=== PATIENT | female | born 1950 | race Caucasian/White ===

== ENCOUNTER 2016-05-17 07:23 | Inpatient (IN) | payer OTHER ==
[~2016-05-17] VITALS: Ht 165.1 cm; Wt 70.4 kg
--- NOTE | 2016-05-17 10:29 | DIAGNOSTIC IMAGING REPORT ---
PROCEDURE: ABDOMEN/PELVIS WITH CONTRAST CLINICAL INDICATION: ABDOMINAL PAIN, history of Crohn disease TECHNIQUE: 100 ml of Isovue 300 were injected intravenously and axial images were obtained of the abdomen and pelvis with sagittal and coronal reformations. COMPARISON: None. FINDINGS: ABDOMEN: Clear lung bases. Normal sized heart. Mild calcific coronary artery disease. No hiatal hernia. Post cholecystectomy changes. Moderate to heavy calcific atherosclerosis of the normal caliber abdominal aorta and splenic artery. Normal liver, adrenal glands, pancreas, spleen, and kidneys. There are two areas of small bowel anastomoses in the right and mid abdomen and one in the rectosigmoid. Proximal small bowel loops are decompressed. Mid and distal small bowel loops are mildly prominent with air fluid levels present. There is a fairly long segment of distal ileum which demonstrates diffuse stricturing, mucosal thickening, hyperemia, and mural edema. There is a small amount of inflammatory change in the surrounding fat. There is liquid stool in the proximal colon with air-fluid levels. There is a moderately increased amount of semisolid stool in the mid and distal colon and rectum. No free fluid, free air, or focal fluid collection to suggest abscess. PELVIS: The appendix and uterus are surgically absent. Irregular contour of the urinary bladder suggestive of chronic overdistention. No free pelvic fluid. Pelvic vessels are normal. No adenopathy. Intact osseous structures with degenerative changes in the L5-S1 facet joints. IMPRESSION: 1. Findings suggestive of acute inflammation involving the distal ileum resulting in stricturing. This is causing mild partial obstruction/ileus. 2. Evidence of prior small and large bowel anastomoses, cholecystectomy, appendectomy, and hysterectomy. 3. Mild to moderate retained semisolid stool in the distal colon and rectum. 4. Atherosclerosis. 5. Discussed with Dr. Gonzalez in the emergency room. All CT scans at this facility use dose modulation, iterative reconstruction, and/or weight-based dosing when appropriate to reduce radiation dose to as low as reasonably achievable.
--- NOTE | 2016-05-17 10:37 | ED CLINICAL REPORT ---
Clinical Report - Physicians/Mid Levels [facility] [address] [place] [address] 05/17/2016 7:25 Patient: JIGAR BANDA Time Seen: 07:48. Arrived- By private vehicle. Historian- patient. HISTORY OF PRESENT ILLNESS Chief Complaint: ABDOMINAL PAIN. It is described as "pain", sharp and cramping. No radiation. It is described as located in the right lower quadrant. At its maximum, severity described as 8 / 10. When seen in the E.D., severity described as 8 / 10. This started several days ago and is still present (worse since last night). It was abrupt in onset and has been constant and waxing/waning. No nausea or vomiting. She has had diarrhea (chronically - and she attributes this to her Crohn's disease). It has been similar to previous symptoms. Recent medical care: The patient was seen recently at another facility in a clinic. ( She was started on meds recently for heartburn and anxiety and her family states that this could the reason for her pain). REVIEW OF SYSTEMS No chills, fever, sweats, calf pain or chest pain. No black stools, bloody stools, nausea, vomiting or urinary problems. She has had a moderate cough productive of blood tinged sputum. All systems otherwise negative, except as recorded above. PAST HISTORY PCP - Dr Zeng (he retired at the end of February 2016). Problems: Heart Murmur. Heart burn. Anxiety Reaction. Near Syncope. Anemia. Cellulitis. MRSA Infection. Crohn's Disease. Contusion. Healing Abscess. Abscess. Diabetes Mellitus. Hypertension. Additional Surgeries: Appendectomy. Cholecystectomy. Dental Surgery. Hysterectomy. Tubal . Medications: Zoloft Oral. Heart burn medication. Amitriptyline HCl Oral 50 mg, at bedtime. HumuLIN R Injection (sliding scale). Lantus Subcutaneous (Solution 100 unit/mL) 60 Units, every AM. Allergies: Codeine. SOCIAL HISTORY Smoker- current status unknown. Occasional alcohol use. No drug use. Residence: [place]. FAMILY HISTORY Diabetes in first-degree relative (father); heart disease in first-degree relative (father); cancer in first-degree relative (mother). her son also has Crohn's disease. ADDITIONAL NOTES The nursing notes have been reviewed. PHYSICAL EXAM Vital Signs: 05/17/2016 07:39 BP: 160/83. HR: 100. RR: 18. O2 saturation: 98%. Temp: 97.7 F. Pain level now: 7/10. Have been reviewed. Appearance: Alert. Oriented X3. Eyes: Pupils equal, round and reactive to light. ENT: Pharynx normal. Neck: Normal inspection. Neck supple. CVS: Normal heart rate and rhythm. 1/6 systolic murmur. Respiratory: No respiratory distress. Decreased air movement. No rales, rhonchi or wheezes. Abdomen: Soft. Moderate tenderness in the right lower quadrant. Bowel sounds normal. No organomegaly. No mass. Back: Normal inspection. No CVA tenderness. Skin: Skin warm and dry. Normal skin color. Normal skin turgor. Extremities: Extremities exhibit normal ROM. No calf tenderness. No lower extremity edema. LABS, X-RAYS, AND EKG Abdominal CT: PROCEDURE: ABDOMEN/PELVIS WITH CONTRAST CLINICAL INDICATION: ABDOMINAL PAIN, history of Crohn disease TECHNIQUE: 100 ml of Isovue 300 were injected intravenously and axial images were obtained of the abdomen and pelvis with sagittal and coronal reformations. COMPARISON: None. FINDINGS: ABDOMEN: Clear lung bases. Normal sized heart. Mild calcific coronary artery disease. No hiatal hernia. Post cholecystectomy changes. Moderate to heavy calcific atherosclerosis of the normal caliber abdominal aorta and splenic artery. Normal liver, adrenal glands, pancreas, spleen, and kidneys. There are two areas of small bowel anastomoses in the right and mid abdomen and one in the rectosigmoid. Proximal small bowel loops are decompressed. Mid and distal small bowel loops are mildly prominent with air fluid levels present. There is a fairly long segment of distal ileum which demonstrates diffuse stricturing, mucosal thickening, hyperemia, and mural edema. There is a small amount of inflammatory change in the surrounding fat. There is liquid stool in the proximal colon with air-fluid levels. There is a moderately increased amount of semisolid stool in the mid and distal colon and rectum. No free fluid, free air, or focal fluid collection to suggest abscess. PELVIS: The appendix and uterus are surgically absent. Irregular contour of the urinary bladder suggestive of chronic overdistention. No free pelvic fluid. Pelvic vessels are normal. No adenopathy. Intact osseous structures with degenerative changes in the L5-S1 facet joints. IMPRESSION: 1. Findings suggestive of acute inflammation involving the distal ileum resulting in stricturing. This is causing mild partial obstruction/ileus. 2. Evidence of prior small and large bowel anastomoses, cholecystectomy, appendectomy, and hysterectomy. 3. Mild to moderate retained semisolid stool in the distal colon and rectum. 4. Atherosclerosis. Study type: abdomen and pelvis. Abdominal CT performed with IV contrast. The study was independently viewed by me and interpreted by the radiologist. The study was discussed with the radiologist (via phone). Laboratory Tests: CBC wo Diff: (QUINTON: 05/20/2016 05:18) ( [facility] 05:57) Final results Test Result Flag Units (Reference) WHITE BLOOD COUNT NO REFLEX 9.3 K/uL (4.5-11.5) RED BLOOD COUNT 3.66 L M/uL (4.00-5.20) HEMOGLOBIN 10.2 L gm/dL (12.0-16.0) HEMATOCRIT 30.6 L % (36.0-46.0) MEAN CELL VOLUME 84 fL (80-100) MEAN CORPUSCULAR HGB 28 pg (26-34) MEAN CORPUSCULAR HGB CONC 34 g/dL (31-37) RED CELL DISTRIBUTION WIDTH 14.0 % (11.6-14.8) PLATELET COUNT 332 K/uL (150-400) BMP: (QUINTON: 05/20/2016 05:18) ( [facility] 05/20/2016 06:43) Final results Test Result Flag Units (Reference) GLUCOSE 226 H mg/dL (70-110) BUN 15 mg/dL (7-18) CREATININE 0.8 mg/dL (0.6-1.3) Estimated GFR >60 mL/min Estimated GFR- >60 mL/min Note: Persistent reduction over 3 months in eGFR<60 mL/min/1.73 m2 defines CKD. Patients with eGFR values>=60 mL/min/1.73 m2 may also have CKD if evidence ofpersistent proteinuria. Additional information may be foundat www.[email or web address].org. SODIUM 138 mmol/L (136-145) POTASSIUM 4.6 mmol/L (3.5-5.1) CHLORIDE 103 mmol/L (98-107) CARBON DIOXIDE 21 mmol/L (21-32) CALCIUM 8.6 mg/dL (8.5-10.1) MAGNESIUM 1.5 L mg/dL (1.8-2.4) PHOSPHORUS 3.8 mg/dL (2.5-4.9) CBC w Diff: (QUINTON: 05/19/2016 04:40) ( MsgRcvd 05/19/2016 05:30) Final results Test Result Flag Units (Reference) WHITE BLOOD COUNT 11.5 K/uL (4.5-11.5) RED BLOOD COUNT 3.33 L M/uL (4.00-5.20) HEMOGLOBIN 9.4 L gm/dL (12.0-16.0) HEMATOCRIT 28.1 L % (36.0-46.0) MEAN CELL VOLUME 85 fL (80-100) MEAN CORPUSCULAR HGB 28 pg (26-34) MEAN CORPUSCULAR HGB CONC 34 g/dL (31-37) RED CELL DISTRIBUTION WIDTH 14.3 % (11.6-14.8) PLATELET COUNT 279 K/uL (150-400) NEUTROPHIL % 83.1 H % (50-75) LYMPH % 14.0 L % (25-40) MONO % 2.6 L % (3-14) EOSINOPHIL % 0 % (0-4) BASOPHIL % 0.3 % (0-2) BMP: (QUNITON: 05/19/2016 04:40) ( MsgRcvd 05/19/2016 05:37) Final results Test Result Flag Units (Reference) GLUCOSE 188 H mg/dL (70-110) BUN 16 mg/dL (7-18) CREATININE 0.8 mg/dL (0.6-1.3) Estimated GFR >60 mL/min Estimated GFR- >60 mL/min Note: Persistent reduction over 3 months in eGFR<60 mL/min/1.73 m2 defines CKD. Patients with eGFR values>=60 mL/min/1.73 m2 may also have CKD if evidence ofpersistent proteinuria. Additional information may be foundat [email or web address]. SODIUM 139 mmol/L (136-145) POTASSIUM 4.4 mmol/L (3.5-5.1) CHLORIDE 105 mmol/L (98-107) CARBON DIOXIDE 22 mmol/L (21-32) CALCIUM 8.4 L mg/dL (8.5-10.1) CBC w Diff: (QUINTON: 05/18/2016 05:30) ( [facility] 05/18/2016 05:41) Final results Test Result Flag Units (Reference) WHITE BLOOD COUNT 13.2 H K/uL (4.5-11.5) RED BLOOD COUNT 3.17 L M/uL (4.00-5.20) HEMOGLOBIN 9.0 L gm/dL (12.0-16.0) HEMATOCRIT 26.4 L % (36.0-46.0) MEAN CELL VOLUME 83 fL (80-100) MEAN CORPUSCULAR HGB 29 pg (26-34) MEAN CORPUSCULAR HGB CONC 34 g/dL (31-37) RED CELL DISTRIBUTION WIDTH 14.0 % (11.6-14.8) PLATELET COUNT 243 K/uL (150-400) NEUTROPHIL % 86.1 H % (50-75) LYMPH % 10.4 L % (25-40) MONO % 3.4 % (3-14) EOSINOPHIL % 0 % (0-4) BASOPHIL % 0.1 % (0-2) [id number]: (QUINTON: 05/18/2016 05:30) ( [facility] 05/18/2016 06:07) Final results Test Result Flag Units (Reference) IRON 67 ug/dL (35-150) TOTAL IRON BINDING CAPACITY 247 L ug/dL (260-445) % SATURATION 27 % (15-50) [id number]: (QUINTON: 05/18/2016 05:30) ( [facility] 05/18/2016 06:41) Final results Test Result Flag Units (Reference) VITAMIN B12 140 pg/mL (211-946) FOLATE 33.9 ng/mL (>3.0) BMP: (QUINTON: 05/18/2016 05:30) ( MsgRcvd 05/18/2016 05:59) Final results Test Result Flag Units (Reference) GLUCOSE 226 H mg/dL (70-110) BUN 16 mg/dL (7-18) CREATININE 0.8 mg/dL (0.6-1.3) Estimated GFR >60 mL/min Estimated GFR- >60 mL/min Note: Persistent reduction over 3 months in eGFR<60 mL/min/1.73 m2 defines CKD. Patients with eGFR values>=60 mL/min/1.73 m2 may also have CKD if evidence ofpersistent proteinuria. Additional information may be foundat www.[email or web address]. SODIUM 138 mmol/L (136-145) POTASSIUM 3.8 mmol/L (3.5-5.1) CHLORIDE 104 mmol/L (98-107) CARBON DIOXIDE 23 mmol/L (21-32) CALCIUM 8.1 L mg/dL (8.5-10.1) UA-Culture if indicated: (QUINTON: 05/17/2016 07:40) ( MsgRcvd 05/17/2016 08:12) Final results Test Result Flag Units (Reference) URINE COLOR YELLOW URINE APPEARANCE CLEAR URINE GLUCOSE TRACE (NEGATIVE) URINE BILIRUBIN NEGATIVE (NEGATIVE) URINE KETONE NEGATIVE (NEGATIVE) URINE SPECIFIC GRAVITY 1.010 (1.010-1.030) URINE PH 6.0 (5.0-8.0) URINE PROTEIN NEGATIVE (NEGATIVE) URINE UROBILINOGEN 0.2 EU/dL (0.2-1.0) URINE NITRITE NEGATIVE (NEGATIVE) URINE BLOOD TRACE-INTACT (NEGATIVE) URINE LEUK ESTERASE NEGATIVE (NEGATIVE) URINE RBC 0-1 rbc/hpf (0-1) URINE WBC 0-1 wbc/hpf (0-1) URINE EPITHELIAL CELLS RARE EPI/hpf (0-5) URINE BACTERIA TRACE (<1+) (NONE SEEN) URINE COMMENT CULT NOT INDICATED URINE CULTURES ARE SET-UP BASED ON THE FOLLOWING CRITERIA:POSITIVE NITRITEPOSITIVE LEUKOCYTE ESTERASEGREATER THAN 10 WHITE BLOOD CELLSMODERATE (2+) OR GREATER BACTERIA CBC w Diff: (QUINTON: 05/17/2016 08:10) ( [facility] 05/17/2016 08:23) Final results Test Result Flag Units (Reference) WHITE BLOOD COUNT 9.8 K/uL (4.5-11.5) RED BLOOD COUNT 3.52 L M/uL (4.00-5.20) HEMOGLOBIN 10.0 L gm/dL (12.0-16.0) HEMATOCRIT 29.1 L % (36.0-46.0) MEAN CELL VOLUME 83 fL (80-100) MEAN CORPUSCULAR HGB 28 pg (26-34) MEAN CORPUSCULAR HGB CONC 34 g/dL (31-37) RED CELL DISTRIBUTION WIDTH 13.8 % (11.6-14.8) PLATELET COUNT 259 K/uL (150-400) NEUTROPHIL % 70.2 % (50-75) LYMPH % 21.5 L % (25-40) MONO % 6.8 % (3-14) EOSINOPHIL % 1.2 % (0-4) BASOPHIL % 0.3 % (0-2) PT with INR: (QUINTON: 05/17/2016 08:10) ( [facility] 05/17/2016 08:33) Final results Test Result Flag Units (Reference) INR 1.0 (0.8-1.2) Low Intensity Therapy: INR 1.5-2.0 PT range 18.5-23.1Mod.Intensity Therapy: INR 2.0-3.0 PT range 23.1-31.5High Intensity Therapy: INR 2.5-3.5 PT range 27.4-35.5High Intensity Therapy 2: INR 3.0-4.0 PT range 31.5-39.3 APTT 30 SECONDS (24-34) [id number]: (QUINTON: 05/17/2016 08:00) ( [facility] 05/17/2016 13:35) Final results Test Result Flag Units (Reference) CALCULATED A1C 8.9 H % (4.5-6.2) The [place] [employer] recommends that aprimary goal of therapy should be a HbA1c of <7% and thatphysicians should reevaluate the treatment regimen inpatients with HbA1c values consistently >8%. ESTIMATED AVERAGE GLUCOSE 209 mg/dL CMP: (QUINTON: 05/17/2016 08:10) ( MsgRcvd 05/17/2016 08:42) Final results Test Result Flag Units (Reference) GLUCOSE 304 H mg/dL (70-110) BUN 20 H mg/dL (7-18) CREATININE 1.0 mg/dL (0.6-1.3) Estimated GFR 59.52 mL/min Estimated GFR- >60 mL/min Note: Persistent reduction over 3 months in eGFR<60 mL/min/1.73 m2 defines CKD. Patients with eGFR values>=60 mL/min/1.73 m2 may also have CKD if evidence ofpersistent proteinuria. Additional information may be foundat www.kidney.org. SODIUM 136 mmol/L (136-145) POTASSIUM 4.0 mmol/L (3.5-5.1) CHLORIDE 100 mmol/L (98-107) CARBON DIOXIDE 25 mmol/L (21-32) CALCIUM 8.7 mg/dL (8.5-10.1) TOTAL PROTEIN 7.1 g/dL (6.4-8.2) ALBUMIN 3.2 L g/dL (3.3-5.0) BILIRUBIN, TOTAL 0.4 mg/dL (0.0-1.0) ALKALINE PHOSPHATASE 75 U/L (46-116) AST (SGOT) 28 U/L (15-37) ALT (SGPT) 41 U/L (12-78) LIPASE 270 U/L (73-393) AMYLASE 55 U/L (25-115) MRSA Screen: (QUINTON: 05/17/2016 11:55) ( MsgRcvd 05/20/2016 12:11) Final results Is patient on antibiotics? N Test Result Flag Units (Reference) MRSA SCREEN DATE: 05/20/16 GROWTH: SCANT GROWTH MRSA ISOLATED?: NO MRSA ISOLATED MSSA ISOLATED?: MSSA (Methacilin Sensitive Staph aureus ISOLATED) * MRSA SCREEN ONLY . PROGRESS AND PROCEDURES Course of Care: the patient is a pleasant 65-year-old female with past medical history significant for Crohn's disease presenting for reevaluation of abdominal pain. Patient was evaluated by the prior DrJanessa at the end of his shift. Patient care has been taken over by myself at the change of shift. Plan is follow up with the Patient's labs and CT scan of the abdomen and pelvis with contrast. patient's workup was remarkable for the findings noted on CT scan above. Patient was reevaluated and unfortunately not doing well. Additional pain medications have been offered. The patient with Crohn's flare. Because of this, had discussion with patient in regards to admission to the hospital. Patient is agreeable to this. I spoke with the hospitalist who will accept the patient. No further recommendations made. Patient is stable for floor level of care. Do not feel patient needs ICU level of care. No evidence of sepsis at this time. Patient appears nontoxic. Discussed the patient workup, diagnosis, and plan of care. All questions have been answered. patient was admitted. Prior to patient's department or from the emergency department she was noted to be resting in bed and in no acute distress. Disposition: Observation in Acute Care. CLINICAL IMPRESSION Minor hemoptysis acute crohn's flare acute partial ileus acute intractable right lower quadrant abdominal pain hemoptysis. INSTRUCTIONS Warnings: Further evaluation is necessary. GENERAL WARNINGS: Return or contact your physician immediately if your condition worsens or changes unexpectedly, if not improving as expected, or if other problems arise. Your Current Medications: CONTINUE TAKING THE FOLLOWING MEDICATIONS: Amitriptyline HCl Oral : 50 mg at bedtime. Heart burn medication*. HumuLIN R Injection : sliding scale. Lantus Subcutaneous : Solution 100 unit/mL, 60 Units every AM. Zoloft Oral. Follow-up: Follow up with a patternmaker metal- as recommended by your primary care physician. Understanding of the discharge instructions verbalized by patient. Follow-up with: [facility], , , [address], [facility], [id number] Follow up in five days. Call for the next available appointment. (Electronically signed by Mayo Gonzalez Dr. 05/23/2016 8:11)
--- NOTE | 2016-05-17 10:37 | ED ORDER SUMMARY ---
..... Patient: JIGAR BANDA OrderSheet [facility] VisitID: [id number] [address] [place] [address] 65y, F Registration Date/Time: 05/17/2016 ORDER SHEET Weight: 66.6 kg (stated) Allergies: Codeine GENERAL ORDERS: UA-Culture if indicated Urgent (07:47 05/17/2016 JBoardley R.N. per protocol) (Ack 7:49 KHoerner) (7:49 KHoerner) CBC w Diff Urgent (07:48 05/17/2016 Judy MELARA) (Ack 7:49 KHoerner) (8:18 JBoardley R.N.) CMP Urgent (07:48 05/17/2016 Judy MELARA) (Ack 7:49 KHoerner) (8:18 JBoardley R.N.) Amylase Urgent (07:48 05/17/2016 Judy MELARA) (Ack 7:49 KHoerner) (8:18 JBoardley R.N.) Lipase Urgent (07:48 05/17/2016 Judy MELARA) (Ack 7:49 KHoerner) (8:18 JBoardley R.N.) PT with INR Urgent (08:11 05/17/2016 Judy MELARA) (8:18 JBoardley R.N.) PTT Urgent (08:11 05/17/2016 Judy MELARA) (8:18 JBoardley R.N.) Chest 2V Urgent (08:11 05/17/2016 Judy MELARA) (Ack 8:23 KHoerner) (8:55 JBoardley R.N.) CT Abd/Pel w Cont (Yes) (GFr okay) Urgent (09:00 05/17/2016 Meera Clayton) (Ack 9:02 KHoerner) (9:41 KHoerner) CT Abd/Pel w Cont (Yes) (See report) Urgent (09:01 05/17/2016 Judy MELARA) (Ack 9:02 KHoerner) (9:41 KHoerner) MEDICATION ORDERS: IV FLUIDS: IV NS : initial bolus 500 mL (1000 mL/hr), then 125 mL/hr for 4h (NOW); Urgent (07:48 05/17/2016 Judy MELARA) (Ack 7:52 JBoardley R.N.) (8:29 JBoardley R.N.) Dilaudid IV 0.5 mg (HIGH ALERT MEDICATION, NOW) (08:17 05/17/2016 Judy MELARA) (Ack 8:18 JBoardley R.N.) (8:29 JBoardley R.N.) Zofran IV 4 mg (NOW) (08:18 05/17/2016 Judy MELARA) (Ack 8:18 JBoardley R.N.) (8:29 JBoardley R.N.) Dilaudid IV 0.5 mg (HIGH ALERT MEDICATION, NOW) (09:03 05/17/2016 JBoardley R.N. verbal order read back to Judy MELARA) (Ack 9:04 JBoardley R.N.) (9:04 JBoardley R.N.) Solu-MEDROL IV 125 mg (NOW) (10:31 05/17/2016 Meera Clayton) (Ack 10:34 JBoardley R.N.) (11:02 RMarsden R.N.) Dilaudid IV 1 mg (HIGH ALERT MEDICATION, NOW) (10:32 05/17/2016 Meera Clayton) (Ack 10:34 JBoardley R.N.) (11:12 RMarsden R.N.) ORDER SHEET NOTES: [Electronically signed by Marcio Jonas R.N. (11:54 05/17/2016)] [Electronically signed by Mayo Gonzalez Dr. (08:11 05/23/2016)] [Electronically locked/signed by Marcio Jonas R.N. (11:54 05/17/2016)]
--- NOTE | 2016-05-17 10:37 | ED ORDER SUMMARY ---
..... Patient: JIGAR BANDA OrderSheet [facility] VisitID: [id number] [address] [place] [address] 65y, F Registration Date/Time: 05/17/2016 ORDER SHEET Weight: 66.6 kg (stated) Allergies: Codeine GENERAL ORDERS: UA-Culture if indicated Urgent (07:47 05/17/2016 JBoardley R.N. per protocol) (Ack 7:49 KHoerner) (7:49 KHoerner) CBC w Diff Urgent (07:48 05/17/2016 Judy MELARA) (Ack 7:49 KHoerner) (8:18 JBoardley R.N.) CMP Urgent (07:48 05/17/2016 Judy MELARA) (Ack 7:49 KHoerner) (8:18 JBoardley R.N.) Amylase Urgent (07:48 05/17/2016 Judy MELARA) (Ack 7:49 KHoerner) (8:18 JBoardley R.N.) Lipase Urgent (07:48 05/17/2016 Judy MELARA) (Ack 7:49 KHoerner) (8:18 JBoardley R.N.) PT with INR Urgent (08:11 05/17/2016 Judy MELARA) (8:18 JBoardley R.N.) PTT Urgent (08:11 05/17/2016 Judy MELARA) (8:18 JBoardley R.N.) Chest 2V Urgent (08:11 05/17/2016 Judy MELARA) (Ack 8:23 KHoerner) (8:55 JBoardley R.N.) CT Abd/Pel w Cont (Yes) (GFr okay) Urgent (09:00 05/17/2016 Meera Clayton) (Ack 9:02 KHoerner) (9:41 KHoerner) CT Abd/Pel w Cont (Yes) (See report) Urgent (09:01 05/17/2016 Judy MELARA) (Ack 9:02 KHoerner) (9:41 KHoerner) MEDICATION ORDERS: IV FLUIDS: IV NS : initial bolus 500 mL (1000 mL/hr), then 125 mL/hr for 4h (NOW); Urgent (07:48 05/17/2016 Judy MELARA) (Ack 7:52 JBoardley R.N.) (8:29 JBoardley R.N.) Dilaudid IV 0.5 mg (HIGH ALERT MEDICATION, NOW) (08:17 05/17/2016 Judy MELARA) (Ack 8:18 JBoardley R.N.) (8:29 JBoardley R.N.) Zofran IV 4 mg (NOW) (08:18 05/17/2016 Judy MELARA) (Ack 8:18 JBoardley R.N.) (8:29 JBoardley R.N.) Dilaudid IV 0.5 mg (HIGH ALERT MEDICATION, NOW) (09:03 05/17/2016 JBoardley R.N. verbal order read back to Judy MELARA) (Ack 9:04 JBoardley R.N.) (9:04 JBoardley R.N.) Solu-MEDROL IV 125 mg (NOW) (10:31 05/17/2016 Meera Clayton) (Ack 10:34 JBoardley R.N.) (11:02 RMarsden R.N.) Dilaudid IV 1 mg (HIGH ALERT MEDICATION, NOW) (10:32 05/17/2016 Meera Clayton) (Ack 10:34 JBoardley R.N.) (11:12 RMarsden R.N.) ORDER SHEET NOTES: [Electronically signed by Marcio Jonas R.N. (11:54 05/17/2016)] [Electronically signed by Mayo Gonzalez Dr. (08:11 05/23/2016)] [Electronically locked/signed by Marcio Jonas R.N. (11:54 05/17/2016)]
--- NOTE | 2016-05-17 10:37 | ED CLINICAL REPORT ---
Clinical Report - Physicians/Mid Levels [facility] [address] [place], [place] [address] 05/17/2016 7:25 Patient: JIGAR BANDA Time Seen: 07:48. Arrived- By private vehicle. Historian- patient. HISTORY OF PRESENT ILLNESS Chief Complaint: ABDOMINAL PAIN. It is described as "pain", sharp and cramping. No radiation. It is described as located in the right lower quadrant. At its maximum, severity described as 8 / 10. When seen in the E.D., severity described as 8 / 10. This started several days ago and is still present (worse since last night). It was abrupt in onset and has been constant and waxing/waning. No nausea or vomiting. She has had diarrhea (chronically - and she attributes this to her Crohn's disease). It has been similar to previous symptoms. Recent medical care: The patient was seen recently at another facility in a clinic. ( She was started on meds recently for heartburn and anxiety and her family states that this could the reason for her pain). REVIEW OF SYSTEMS No chills, fever, sweats, calf pain or chest pain. No black stools, bloody stools, nausea, vomiting or urinary problems. She has had a moderate cough productive of blood tinged sputum. All systems otherwise negative, except as recorded above. PAST HISTORY PCP - Dr Zeng (he retired at the end of February 2016). Problems: Heart Murmur. Heart burn. Anxiety Reaction. Near Syncope. Anemia. Cellulitis. MRSA Infection. Crohn's Disease. Contusion. Healing Abscess. Abscess. Diabetes Mellitus. Hypertension. Additional Surgeries: Appendectomy. Cholecystectomy. Dental Surgery. Hysterectomy. Tubal . Medications: Zoloft Oral. Heart burn medication. Amitriptyline HCl Oral 50 mg, at bedtime. HumuLIN R Injection (sliding scale). Lantus Subcutaneous (Solution 100 unit/mL) 60 Units, every AM. Allergies: Codeine. SOCIAL HISTORY Smoker- current status unknown. Occasional alcohol use. No drug use. Residence: [place]. FAMILY HISTORY Diabetes in first-degree relative (father); heart disease in first-degree relative (father); cancer in first-degree relative (mother). her son also has Crohn's disease. ADDITIONAL NOTES The nursing notes have been reviewed. PHYSICAL EXAM Vital Signs: 05/17/2016 07:39 BP: 160/83. HR: 100. RR: 18. O2 saturation: 98%. Temp: 97.7 F. Pain level now: 7/10. Have been reviewed. Appearance: Alert. Oriented X3. Eyes: Pupils equal, round and reactive to light. ENT: Pharynx normal. Neck: Normal inspection. Neck supple. CVS: Normal heart rate and rhythm. 1/6 systolic murmur. Respiratory: No respiratory distress. Decreased air movement. No rales, rhonchi or wheezes. Abdomen: Soft. Moderate tenderness in the right lower quadrant. Bowel sounds normal. No organomegaly. No mass. Back: Normal inspection. No CVA tenderness. Skin: Skin warm and dry. Normal skin color. Normal skin turgor. Extremities: Extremities exhibit normal ROM. No calf tenderness. No lower extremity edema. LABS, X-RAYS, AND EKG Abdominal CT: PROCEDURE: ABDOMEN/PELVIS WITH CONTRAST CLINICAL INDICATION: ABDOMINAL PAIN, history of Crohn disease TECHNIQUE: 100 ml of Isovue 300 were injected intravenously and axial images were obtained of the abdomen and pelvis with sagittal and coronal reformations. COMPARISON: None. FINDINGS: ABDOMEN: Clear lung bases. Normal sized heart. Mild calcific coronary artery disease. No hiatal hernia. Post cholecystectomy changes. Moderate to heavy calcific atherosclerosis of the normal caliber abdominal aorta and splenic artery. Normal liver, adrenal glands, pancreas, spleen, and kidneys. There are two areas of small bowel anastomoses in the right and mid abdomen and one in the rectosigmoid. Proximal small bowel loops are decompressed. Mid and distal small bowel loops are mildly prominent with air fluid levels present. There is a fairly long segment of distal ileum which demonstrates diffuse stricturing, mucosal thickening, hyperemia, and mural edema. There is a small amount of inflammatory change in the surrounding fat. There is liquid stool in the proximal colon with air-fluid levels. There is a moderately increased amount of semisolid stool in the mid and distal colon and rectum. No free fluid, free air, or focal fluid collection to suggest abscess. PELVIS: The appendix and uterus are surgically absent. Irregular contour of the urinary bladder suggestive of chronic overdistention. No free pelvic fluid. Pelvic vessels are normal. No adenopathy. Intact osseous structures with degenerative changes in the L5-S1 facet joints. IMPRESSION: 1. Findings suggestive of acute inflammation involving the distal ileum resulting in stricturing. This is causing mild partial obstruction/ileus. 2. Evidence of prior small and large bowel anastomoses, cholecystectomy, appendectomy, and hysterectomy. 3. Mild to moderate retained semisolid stool in the distal colon and rectum. 4. Atherosclerosis. Study type: abdomen and pelvis. Abdominal CT performed with IV contrast. The study was independently viewed by me and interpreted by the radiologist. The study was discussed with the radiologist (via phone). Laboratory Tests: CBC wo Diff: (QUINTON: 05/20/2016 05:18) ( [facility] 05/20/2016 05:57) Final results Test Result Flag Units (Reference) WHITE BLOOD COUNT NO REFLEX 9.3 K/uL (4.5-11.5) RED BLOOD COUNT 3.66 L M/uL (4.00-5.20) HEMOGLOBIN 10.2 L gm/dL (12.0-16.0) HEMATOCRIT 30.6 L % (36.0-46.0) MEAN CELL VOLUME 84 fL (80-100) MEAN CORPUSCULAR HGB 28 pg (26-34) MEAN CORPUSCULAR HGB CONC 34 g/dL (31-37) RED CELL DISTRIBUTION WIDTH 14.0 % (11.6-14.8) PLATELET COUNT 332 K/uL (150-400) BMP: ([place]: 05/20/2016 05:18) ( [facility] 05/20/2016 06:43) Final results Test Result Flag Units (Reference) GLUCOSE 226 H mg/dL (70-110) BUN 15 mg/dL (7-18) CREATININE 0.8 mg/dL (0.6-1.3) Estimated GFR >60 mL/min Estimated GFR- >60 mL/min Note: Persistent reduction over 3 months in eGFR<60 mL/min/1.73 m2 defines CKD. Patients with eGFR values>=60 mL/min/1.73 m2 may also have CKD if evidence ofpersistent proteinuria. Additional information may be foundat [email or web address]. SODIUM 138 mmol/L (136-145) POTASSIUM 4.6 mmol/L (3.5-5.1) CHLORIDE 103 mmol/L (98-107) CARBON DIOXIDE 21 mmol/L (21-32) CALCIUM 8.6 mg/dL (8.5-10.1) MAGNESIUM 1.5 L mg/dL (1.8-2.4) PHOSPHORUS 3.8 mg/dL (2.5-4.9) CBC w Diff: (QUINTON: 05/19/2016 04:40) ( [facility] 05/19/2016 05:30) Final results Test Result Flag Units (Reference) WHITE BLOOD COUNT 11.5 K/uL (4.5-11.5) RED BLOOD COUNT 3.33 L M/uL (4.00-5.20) HEMOGLOBIN 9.4 L gm/dL (12.0-16.0) HEMATOCRIT 28.1 L % (36.0-46.0) MEAN CELL VOLUME 85 fL (80-100) MEAN CORPUSCULAR HGB 28 pg (26-34) MEAN CORPUSCULAR HGB CONC 34 g/dL (31-37) RED CELL DISTRIBUTION WIDTH 14.3 % (11.6-14.8) PLATELET COUNT 279 K/uL (150-400) NEUTROPHIL % 83.1 H % (50-75) LYMPH % 14.0 L % (25-40) MONO % 2.6 L % (3-14) EOSINOPHIL % 0 % (0-4) BASOPHIL % 0.3 % (0-2) BMP: (QUINTON: 05/19/2016 04:40) ( [facility] 05/19/2016 05:37) Final results Test Result Flag Units (Reference) GLUCOSE 188 H mg/dL (70-110) BUN 16 mg/dL (7-18) CREATININE 0.8 mg/dL (0.6-1.3) Estimated GFR >60 mL/min Estimated GFR- >60 mL/min Note: Persistent reduction over 3 months in eGFR<60 mL/min/1.73 m2 defines CKD. Patients with eGFR values>=60 mL/min/1.73 m2 may also have CKD if evidence ofpersistent proteinuria. Additional information may be foundat [email or web address]. SODIUM 139 mmol/L (136-145) POTASSIUM 4.4 mmol/L (3.5-5.1) CHLORIDE 105 mmol/L (98-107) CARBON DIOXIDE 22 mmol/L (21-32) CALCIUM 8.4 L mg/dL (8.5-10.1) CBC w Diff: (QUINTON: 05/18/2016 05:30) ( [facility] 05/18/2016 05:41) Final results Test Result Flag Units (Reference) WHITE BLOOD COUNT 13.2 H K/uL (4.5-11.5) RED BLOOD COUNT 3.17 L M/uL (4.00-5.20) HEMOGLOBIN 9.0 L gm/dL (12.0-16.0) HEMATOCRIT 26.4 L % (36.0-46.0) MEAN CELL VOLUME 83 fL (80-100) MEAN CORPUSCULAR HGB 29 pg (26-34) MEAN CORPUSCULAR HGB CONC 34 g/dL (31-37) RED CELL DISTRIBUTION WIDTH 14.0 % (11.6-14.8) PLATELET COUNT 243 K/uL (150-400) NEUTROPHIL % 86.1 H % (50-75) LYMPH % 10.4 L % (25-40) MONO % 3.4 % (3-14) EOSINOPHIL % 0 % (0-4) BASOPHIL % 0.1 % (0-2) [id number]: ([place]: 05/18/2016 05:30) ( [facility] 05/18/2016 06:07) Final results Test Result Flag Units (Reference) IRON 67 ug/dL (35-150) TOTAL IRON BINDING CAPACITY 247 L ug/dL (260-445) % SATURATION 27 % (15-50) [id number]: ([place]: 05/18/2016 05:30) ( [facility] 05/18/2016 06:41) Final results Test Result Flag Units (Reference) VITAMIN B12 140 pg/mL (211-946) FOLATE 33.9 ng/mL (>3.0) BMP: (QU[place]: 05/18/2016 05:30) ( [facility] 05/18/2016 05:59) Final results Test Result Flag Units (Reference) GLUCOSE 226 H mg/dL (70-110) BUN 16 mg/dL (7-18) CREATININE 0.8 mg/dL (0.6-1.3) Estimated GFR >60 mL/min Estimated GFR- >60 mL/min Note: Persistent reduction over 3 months in eGFR<60 mL/min/1.73 m2 defines CKD. Patients with eGFR values>=60 mL/min/1.73 m2 may also have CKD if evidence ofpersistent proteinuria. Additional information may be foundat [email or web address]. SODIUM 138 mmol/L (136-145) POTASSIUM 3.8 mmol/L (3.5-5.1) CHLORIDE 104 mmol/L (98-107) CARBON DIOXIDE 23 mmol/L (21-32) CALCIUM 8.1 L mg/dL (8.5-10.1) UA-Culture if indicated: (QUINTON: 05/17/2016 07:40) ( [facility] 05/17/2016 08:12) Final results Test Result Flag Units (Reference) URINE COLOR YELLOW URINE APPEARANCE CLEAR URINE GLUCOSE TRACE (NEGATIVE) URINE BILIRUBIN NEGATIVE (NEGATIVE) URINE KETONE NEGATIVE (NEGATIVE) URINE SPECIFIC GRAVITY 1.010 (1.010-1.030) URINE PH 6.0 (5.0-8.0) URINE PROTEIN NEGATIVE (NEGATIVE) URINE UROBILINOGEN 0.2 EU/dL (0.2-1.0) URINE NITRITE NEGATIVE (NEGATIVE) URINE BLOOD TRACE-INTACT (NEGATIVE) URINE LEUK ESTERASE NEGATIVE (NEGATIVE) URINE RBC 0-1 rbc/hpf (0-1) URINE WBC 0-1 wbc/hpf (0-1) URINE EPITHELIAL CELLS RARE EPI/hpf (0-5) URINE BACTERIA TRACE (<1+) (NONE SEEN) URINE COMMENT CULT NOT INDICATED URINE CULTURES ARE SET-UP BASED ON THE FOLLOWING CRITERIA:POSITIVE NITRITEPOSITIVE LEUKOCYTE ESTERASEGREATER THAN 10 WHITE BLOOD CELLSMODERATE (2+) OR GREATER BACTERIA CBC w Diff: (QUINTON: 05/17/2016 08:10) ( [facility] 05/17/2016 08:23) Final results Test Result Flag Units (Reference) WHITE BLOOD COUNT 9.8 K/uL (4.5-11.5) RED BLOOD COUNT 3.52 L M/uL (4.00-5.20) HEMOGLOBIN 10.0 L gm/dL (12.0-16.0) HEMATOCRIT 29.1 L % (36.0-46.0) MEAN CELL VOLUME 83 fL (80-100) MEAN CORPUSCULAR HGB 28 pg (26-34) MEAN CORPUSCULAR HGB CONC 34 g/dL (31-37) RED CELL DISTRIBUTION WIDTH 13.8 % (11.6-14.8) PLATELET COUNT 259 K/uL (150-400) NEUTROPHIL % 70.2 % (50-75) LYMPH % 21.5 L % (25-40) MONO % 6.8 % (3-14) EOSINOPHIL % 1.2 % (0-4) BASOPHIL % 0.3 % (0-2) PT with INR: (QUINTON: 05/17/2016 08:10) ( [facility] 05/17/2016 08:33) Final results Test Result Flag Units (Reference) INR 1.0 (0.8-1.2) Low Intensity Therapy: INR 1.5-2.0 PT range 18.5-23.1Mod.Intensity Therapy: INR 2.0-3.0 PT range 23.1-31.5High Intensity Therapy: INR 2.5-3.5 PT range 27.4-35.5High Intensity Therapy 2: INR 3.0-4.0 PT range 31.5-39.3 APTT 30 SECONDS (24-34) [id number]: (QUINTON: 05/17/2016 08:00) ( [facility] 05/17/2016 13:35) Final results Test Result Flag Units (Reference) CALCULATED A1C 8.9 H % (4.5-6.2) The [place] [employer] recommends that aprimary goal of therapy should be a HbA1c of <7% and thatphysicians should reevaluate the treatment regimen inpatients with HbA1c values consistently >8%. ESTIMATED AVERAGE GLUCOSE 209 mg/dL CMP: (QUINTON: 05/17/2016 08:10) ( [facility] 05/17/2016 08:42) Final results Test Result Flag Units (Reference) GLUCOSE 304 H mg/dL (70-110) BUN 20 H mg/dL (7-18) CREATININE 1.0 mg/dL (0.6-1.3) Estimated GFR 59.52 mL/min Estimated GFR- >60 mL/min Note: Persistent reduction over 3 months in eGFR<60 mL/min/1.73 m2 defines CKD. Patients with eGFR values>=60 mL/min/1.73 m2 may also have CKD if evidence ofpersistent proteinuria. Additional information may be foundat [email or web address].org. SODIUM 136 mmol/L (136-145) POTASSIUM 4.0 mmol/L (3.5-5.1) CHLORIDE 100 mmol/L (98-107) CARBON DIOXIDE 25 mmol/L (21-32) CALCIUM 8.7 mg/dL (8.5-10.1) TOTAL PROTEIN 7.1 g/dL (6.4-8.2) ALBUMIN 3.2 L g/dL (3.3-5.0) BILIRUBIN, TOTAL 0.4 mg/dL (0.0-1.0) ALKALINE PHOSPHATASE 75 U/L (46-116) AST (SGOT) 28 U/L (15-37) ALT (SGPT) 41 U/L (12-78) LIPASE 270 U/L (73-393) AMYLASE 55 U/L (25-115) MRSA Screen: (QUINTON: 05/17/2016 11:55) ( [facility] 05/20/2016 12:11) Final results Is patient on antibiotics? N Test Result Flag Units (Reference) MRSA SCREEN DATE: 05/20/16 GROWTH: SCANT GROWTH MRSA ISOLATED?: NO MRSA ISOLATED MSSA ISOLATED?: MSSA (Methacilin Sensitive Staph aureus ISOLATED) * MRSA SCREEN ONLY . PROGRESS AND PROCEDURES Course of Care: the patient is a pleasant 65-year-old female with past medical history significant for Crohn's disease presenting for reevaluation of abdominal pain. Patient was evaluated by the prior DrJanessa at the end of his shift. Patient care has been taken over by myself at the change of shift. Plan is follow up with the Patient's labs and CT scan of the abdomen and pelvis with contrast. patient's workup was remarkable for the findings noted on CT scan above. Patient was reevaluated and unfortunately not doing well. Additional pain medications have been offered. The patient with Crohn's flare. Because of this, had discussion with patient in regards to admission to the hospital. Patient is agreeable to this. I spoke with the hospitalist who will accept the patient. No further recommendations made. Patient is stable for floor level of care. Do not feel patient needs ICU level of care. No evidence of sepsis at this time. Patient appears nontoxic. Discussed the patient workup, diagnosis, and plan of care. All questions have been answered. patient was admitted. Prior to patient's department or from the emergency department she was noted to be resting in bed and in no acute distress. Disposition: Observation in Acute Care. CLINICAL IMPRESSION Minor hemoptysis acute crohn's flare acute partial ileus acute intractable right lower quadrant abdominal pain hemoptysis. INSTRUCTIONS Warnings: Further evaluation is necessary. GENERAL WARNINGS: Return or contact your physician immediately if your condition worsens or changes unexpectedly, if not improving as expected, or if other problems arise. Your Current Medications: CONTINUE TAKING THE FOLLOWING MEDICATIONS: Amitriptyline HCl Oral : 50 mg at bedtime. Heart burn medication*. HumuLIN R Injection : sliding scale. Lantus Subcutaneous : Solution 100 unit/mL, 60 Units every AM. Zoloft Oral. Follow-up: Follow up with a flight test supervisor- as recommended by your primary care physician. Understanding of the discharge instructions verbalized by patient. Follow-up with: [facility], , , [address], [facility], [id number] Follow up in five days. Call for the next available appointment. (Electronically signed by Mayo Gonzalez Dr. 05/23/2016 8:11)
--- NOTE | 2016-05-17 10:37 | ED NURSING NOTES ---
Clinical Report - Nurses [facility] [address] [place] [address] 05/17/2016 7:25 Patient: JIGRA BANDA TRIAGE Triage time 07:40. Acuity: LEVEL 4. Chief Complaint: ABDOMINAL PAIN. 07:40 05/17/16. 07:40 05/17/16. Alert. ( RLQ pain that started 3 days ago. Pt was started on meds recently for heartburn and anxiety and family states that this could the reason for her pain.). SEPSIS SCREEN: Sepsis Screen. Negative (no infection suspected/documented). --07:47 Marcio Jonas R.N. 07:39 05/17/16. BP: 160/83. HR: 100. RR: 18. O2 saturation: 98% on room air. Temp: 97.7 F (oral). Pain level now: 10/02. --07:47 Marcio Jonas R.N. Acuity: LEVEL 3. --09:24 Marcio Jonas R.N. Weight: 66.6 kg stated. Height/Length: 65 inches Per Patient. BMI: 24.5. --07:39 Marcio Jonas R.N. Medications Amitriptyline HCl Oral 50 mg, at bedtime. HumuLIN R Injection (sliding scale). Lantus Subcutaneous (Solution 100 unit/mL) 60 Units, every AM. --07:43 Marcio Jonas R.N. Heart burn medication. --07:43 Marcio Jonas R.N. Zoloft Oral. --07:43 Marcio Jonas R.N. Medication/allergy information source: the patient and patient's family. --07:47 Marcio Jonas R.N. Allergies Codeine. --07:43 Marcio Jonas R.N. History Arrived by private vehicle. Historian: patient. Accompanied by family. Primary physician (Feli). 07:40 05/17/16. Onset. (3 days ago). Treatment REBAR WORKER: None. SOCIAL HX: Former smoker, end date 2011. Never smoker. Occasional alcohol use. No drug use. No recent travel. No infectious disease exposure. No known contact with a sick individual. ABUSE ASSESSMENT: No report of abuse. FALL RISK ASSESSMENT: Fall risk assessment completed. No fall risk identified. NUTRITIONAL RISK ASSESSMENT: The nutritional risk assessment revealed no deficiencies. FUNCTIONAL ASSESSMENT: Functional assessment: no impairments noted. LEARNING NEEDS ASSESSMENT: The learning needs assessment revealed no barriers. SKIN INTEGRITY ASSESSMENT: Skin integrity risk assessment completed. No skin integrity risk identified. --07:47 Marcio Jonas R.N. PAST MEDICAL HX: Immunizations: up-to-date. --07:47 Marcio Jonas R.N. PROBLEMS: Near Syncope. Anemia. Cellulitis. MRSA Infection. Crohn's Disease. Contusion. Healing Abscess. Abscess. Diabetes Mellitus. Hypertension. --07:44 Marcio Jonas R.N. Heart burn. Anxiety Reaction. --07:44 Marcio Jonas R.N. ADDITIONAL SURGERIES: Appendectomy. Cholecystectomy. Dental Surgery. Hysterectomy. Tubal . --07:44 Marcio Jonas R.N. Assessment 07:40 05/17/16. --07:47 Marcio Jonas R.N. Interventions 07:40 05/17/16. 07:40 05/17/16. ID and allergy band on patient. To treatment room. --07:47 Marcio Jonas R.N. PHYSICAL ASSESSMENT 07:45 05/17/16. Ambulatory to room. GENERAL / NEURO / PSYCH: Oriented X 4. Appears in no acute distress. RESPIRATORY: Respirations not labored. CVS: Capillary refill less than 2 seconds. GI / : Last BM was yesterday. SKIN: Skin is warm and dry. --07:45 Marcio Jonas R.N. NURSING PROGRESS NOTES 07:45 05/17/16. The plan of care for this patient has been created. Patient gowned. Head of bed elevated. Reassurance given. Two patient identifiers checked. Call light placed in reach. Side rails up x 2. Bed placed in lowest position. Brakes of bed on. Brakes of chair on. --07:45 Marcio Jonas R.N. 07:45 05/17/16. Patient ready for evaluation- chart flagged and notification provided. --07:45 Marcio Jonas R.N. 08:19 05/17/2016 Site #1 started via IV in the left antecubital space with an 20g angiocath, with aseptic technique and good blood return; one attempt. Blood drawn: rainbow set. Labeled in the presence of the patient and sent to the lab. Saline lock flushed with 10 mL saline. --08:29 Marcio Jonas R.N. 08:24 05/17/2016 Started bag #1 1000 mL IV Fluids IV NS (Saline); at 1000 mL/hr over 1 hour(s) via site #1. Allergies verified and confirmed 5 rights. Completed per protocol. --08:29 Marcio Jonas R.N. 08:29 05/17/2016 Dilaudid (HYDROmorphone HCl PF) IVP 0.5 mg given over 2 minute(s) via site #1. Allergies verified, confirmed 5 rights and sedative warning given to the patient. IV patency established. IV site checked: no pain, redness, or swelling. IV flushed thoroughly pre- and post-medication administration. IVP given by RN. --08:29 Marcio Jonas R.N. 08:29 05/17/2016 Zofran (Ondansetron HCl) IVP 4 mg given over 2 minute(s) via site #1. Allergies verified and confirmed 5 rights. IV patency established. IV site checked: no pain, redness, or swelling. IV flushed thoroughly pre- and post-medication administration. IVP given by RN. --08:29 Marcio Jonas R.N. 08:30 05/17/16. Patient and family informed about reason for wait and about plan of care. --08:30 Marcio Jonas R.N. 08:30 05/17/16. Patient waiting for diagnostic study to be done. --08:30 Marcio Jonas R.N. 08:36 05/17/16. Patient transported to radiology by stretcher with tech. --08:36 Marcio Jonas R.N. 08:40 05/17/16. Patient returned from radiology by stretcher with tech. --08:40 Marcio Jonas R.N. 09:04 05/17/2016 Dilaudid (HYDROmorphone HCl PF) IVP 0.5 mg given over 2 minute(s) via site #1. Allergies verified, confirmed 5 rights and sedative warning given to the patient. IV patency established. IV site checked: no pain, redness, or swelling. IV flushed thoroughly pre- and post-medication administration. IVP given by RN. --09:04 Marcio Jonas R.N. 09:08 05/17/16. --09:08 Marcio Jonas R.N. 09:08 05/17/16. BP: 143/78. HR: 77. RR: 14. O2 saturation: 100% on room air. --09:08 Marcio Jonas R.N. 09:08 05/17/16. Patient and family informed about reason for wait and about plan of care. --09:08 Marcio Jonas R.N. 09:08 05/17/16. Patient waiting for CT to be done. --09:08 Marcio Jonas R.N. 09:45 05/17/16. --09:45 Marcio Jonas R.N. 09:44 05/17/16. BP: 165/64. HR: 85. RR: 14. O2 saturation: 98% on room air. --09:45 Marcio Jonas R.N. 09:45 05/17/16. Patient and family informed about reason for wait and about plan of care. --09:45 Marcio Jonas R.N. 09:45 05/17/16. Patient waiting for disposition. --09:45 Marcio Jonas R.N. 11:01 05/17/2016 SOLU-MEDROL (MethylPREDNISolone Sodium Succ) IVP 125 mg given. via site #1. Allergies verified and confirmed 5 rights. IV patency established site checked: no pain, redness, or swelling flushed thoroughly pre- and post-medication administration. IVP given by RN. --11:02 Celeste Ruiz R.N. 11:12 05/17/2016 Dilaudid (HYDROmorphone HCl PF) IVP 1 mg given. via site #1. Allergies verified, confirmed 5 rights and sedative warning given to the patient. IV patency established. IV site checked: no pain, redness, or swelling. IV flushed thoroughly pre- and post-medication administration. IVP given by RN. --11:12 Celeste Ruiz R.N. 11:12 05/17/2016 Zofran (Ondansetron HCl) IVP 4 mg given over 2 minute(s) via site #1. Allergies verified and confirmed 5 rights. IV patency established. IV site checked: no pain, redness, or swelling. IV flushed thoroughly pre- and post-medication administration. IVP given by RN. --11:13 Celeste Ruiz R.N. 11:13 05/17/16. Patient and family informed about reason for wait and about plan of care. --11:13 Marcio Jonas R.N. 11:14 05/17/16. ( pt to bed admitted for chrons flare, ileus). --11:14 Marcio Jonas R.N. 11:22 05/17/2016 IV Fluids IV NS Discontinued: bag #1 infused upon admission. Total amount infused: 1000 mL. IV patency established. IV site checked: no pain, redness, or swelling. IV flushed thoroughly. --11:22 Marcio Jonas R.N. 11:05/17/16. ( Pt was given ice per MD order). --11:22 Marcio Jonas R.N. late entry -10:30. ( H and P form given to patient). --11:51 Marcio Jonas R.N. DISPOSITION / DISCHARGE 11:20 05/17/2016 Site #[address] upon admission; patent. Flushed with 10 mL saline. --11:20 Marcio Jonas R.N. 11:21 05/17/16. The goals identified in the patient's plan of care were met. Disposition: observation in Acute Care. Transported via stretcher by nurse with IV. Report was given to a nurse via a phone call. Report included patient's care, treatment, medications, reviewed medication reconcilliation, and condition (including any recent changes or anticipated changes). All questions were answered. Report was acknowledged and care was transferred. Patient's personal items include, Pants, boots, no weapons, no meds, no money. FALL RISK ASSESSMENT: Fall risk assessment completed. No fall risk identified. --11:21 Marcio Jonas R.N. 11:19 05/17/16. BP: 163/72. HR: 80. RR: 14. O2 saturation: 98% on room air. Temp: 98.2 F (oral). --11:21 Marcio Jonas R.N. 11:23 05/17/16. Departure time: 11:23. --11:23 Marcio Jonas R.N. Locked/Released at 05/17/2016 11:54 by Marcio Jonas R.N.
--- NOTE | 2016-05-17 11:12 | DIAGNOSTIC IMAGING REPORT ---
PROCEDURE: XR CHEST 2 VIEW INDICATION: HEMOPTYSIS TECHNIQUE: PA and lateral views. COMPARISON: Chest 08/05/2015 FINDINGS: Lungs are clear. Heart and mediastinum are normal. Thorax is normal. Previous right shoulder surgery IMPRESSION: 1. Negative chest.
[2016-05-17 12:18] VITALS: BP 151/80
[2016-05-17 14:16] VITALS: BP 151/88
--- NOTE | 2016-05-17 16:51 | Progress Note ---
Subjective General Admission History and Physical Examination Patient Name: Amna River Admission Date: May 17, 2016 Primary Care Provider: None Attending Physician: Darrian Mendoza M.D. Admitting Physician: Darrian Mendoza M.D. SUBJECTIVE Historian: Patient Reliability: Fair Chief Complaint: Abdominal pain History of Present Illness: The patient is a 65-year-old white female with a significant past medical history of Crohn's disease, diabetes mellitus, gastroesophageal reflux, depression, who presented to [facility] emergency department on the day of admission secondary to complaints of abdominal pain. [facility] ER evaluation was consistent with Crohn's disease with abdominal pain nausea and vomiting. Secondary to the above, the patient was admitted by Darrian Mendoza M.D. for further evaluation and treatment. The history of present illness began approximately 3 days prior to admission when the patient developed right-sided abdominal pain. This is most severe in the right lower quadrant. It was initially cramping but soon became chronic/ steady. He had increasing degree of severity. It was associated with nausea and vomiting on the day of admission. Emesis did not contain blood or coffee- ground material. There has been a history of diarrhea. She's had intermittent, chronic abdominal pain over many years. There was no associated fever but the patient does give a history of chills. Secondary to increasing abdominal pain the patient presented to [facility] emergency department for further evaluation and treatment. [facility] ER evaluation showed the patient to have vital signs of blood pressure 160/83, pulse 100, respirations 18, temperature 97.7 Fahrenheit orally. O2 sat 98% room air. Physical exam showed moderate tenderness in the right lower quadrant. CT scan abdomen showed findings of acute inflammation involving the distal ileum with stricturing noted resulting in partial small bowel obstruction. Secondary to above the patient was admitted with a diagnosis of Crohn's disease with acute flare and associated small bowel obstruction PAST MEDICAL HISTORY Illnesses: 1. Crohn's disease 2. Diabetes mellitus 3. Depression 4. Anxiety 5. Gastroesophageal reflux Allergies: 1. Codeine Medications: 1. [Meds] Surgery: 1. Small bowel resection/large bowel resection 2. Appendectomy 3. Cholecystectomy Injuries: 1. No significant Hospitalizations: 1. For above surgery and medical problems FAMILY HISTORY Parents: 1. Father, , 70, heart disease, diabetes mellitus, renal failure, 2. Mother, , 60, cancer type unknown Siblings: 1. None Children: 1. Male, living, 45, Crohn's disease 2. Female, living, 46, healthy Other significant family history: None SOCIAL HISTORY 1. Marital Status: 2. Yarsanism: None 3. Education: High school 4. Employment History: Disabled, 1979 secondary to Crohn's disease 5. Occupational health exposures: None HABITS 1. Tobacco: 20 pack years, stopped 2011 2. Drugs: 1 ounce per week 3. Alcohol: None 4. Caffeine: 2-3 cups coffee per day, 2 cans soft drink per day HEALTH SUPERVISION Item/Test 1. Colonoscopy 1989 IMMUNIZATIONS: 1. Pneumococcal: No previous 2. Influenza: 2017 3. Tetanus: Unknown ADVANCED DIRECTIVES: 1. The patient has no advanced directives. She wishes to be placed on a FULL CODE STATUS during her hospital stay REVIEW OF SYSTEMS Remarkable for those things stated in the history of present illness and past medical history. Seventeen point review of system completed with the following notable findings: General: Fatigue, abdominal pain Throat: Sore throat Respiratory: Hemoptysis Cardiovascular: Heart murmur Genitourinary: Urinary frequency, nocturia, poor stream Gastrointestinal: Heartburn, diarrhea, abdominal pain Blood and lymphatic: Anemia Endocrine: Diabetes mellitus Psychological: Anxiety Physical Exam Vital Signs / I&Os Vital Signs Date Time Temp Pulse Resp B/P Pulse O2 O2 Flow FiO2 Ox Delivery Rate 05/17 1602 Room Air 05/17 1416 98.4 86 16 151/88 100 Room Air 05/17 1359 Room Air 05/17 1218 98.2 77 18 151/80 100 Room Air 0.0 General Appearance Alert, Oriented X3, Cooperative, No acute distress HEENT Atraumatic, PERRLA, EOMI, Moist mucous membranes Lungs Clear to auscultation, Normal air movement Neck Supple, No JVD Cardiovascular Regular rate and rhythm, Normal S1 and S2 Abdomen Normal bowel sounds, Soft, diffuse tenderness most significant right lower quadrant, no rebound tenderness noted Extremities No cyanosis, No clubbing, No edema Neurological Cranial nerves intact, Strength 5/5 x4 ext's, No lateralizing signs Psych/Mental Status Mental status normal, Mood normal LAB Results Laboratory Tests 05/17 05/17 05/17 0810 0800 0740 Chemistry Plasma Sodium (136 - 145 mmol/L) 136 Plasma Potassium (3.5 - 5.1 mmol/L) 4.0 Plasma Chloride (98 - 107 mmol/L) 100 CO2 (Enzymatic) (21 - 32 mmol/L) 25 BUN (7 - 18 mg/dL) 20 Creatinine (0.6 - 1.3 mg/dL) 1.0 Est GFR ( Amer) (mL/min) >60 Est GFR (Non-Af Amer) (mL/min) 59.52 Glucose (70 - 110 mg/dL) 304 Hemoglobin A1c % (4.5 - 6.2 %) 8.9 Plasma Calcium (8.5 - 10.1 mg/dL) 8.7 Total Bilirubin (0.0 - 1.0 mg/dL) 0.4 AST (15 - 37 U/L) 28 ALT (12 - 78 U/L) 41 Alkaline Phosphatase (46 - 116 U/L) 75 Total Protein (6.4 - 8.2 g/dL) 7.1 Albumin (3.3 - 5.0 g/dL) 3.2 Amylase (25 - 115 U/L) 55 Lipase (73 - 393 U/L) 270 Coagulation INR (0.8 - 1.2) 1.0 APTT (24 - 34 SECONDS) 30 Hematology WBC (4.5 - 11.5 K/uL) 9.8 RBC (4.00 - 5.20 M/uL) 3.52 Hgb (12.0 - 16.0 gm/dL) 10.0 Hct (36.0 - 46.0 %) 29.1 MCV (80 - 100 fL) 83 MCH (26 - 34 pg) 28 RDW (11.6 - 14.8 %) 13.8 Neut % (Auto) (50 - 75 %) 70.2 Lymph % (Auto) (25 - 40 %) 21.5 [place] % (Auto) (3 - 14 %) 6.8 Eos % (Auto) (0 - 4 %) 1.2 Baso % (Auto) (0 - 2 %) 0.3 Plt Count, EDTA (150 - 400 K/uL) 259 PUBS MCHC (31 - 37 g/dL) 34 Urines Urine Color YELLOW Urine Appearance CLEAR Urine pH (5.0 - 8.0) 6.0 Ur Specific [place] (1.010 - 1.030) 1.010 Urine Protein (NEGATIVE) NEGATIVE Urine Ketones (NEGATIVE) NEGATIVE Urine Blood (NEGATIVE) TRACE-INTACT Urine Nitrite (NEGATIVE) NEGATIVE Urine Bilirubin (NEGATIVE) NEGATIVE Urine Urobilinogen (0.2 - 1.0 EU/dL) 0.2 Ur Leukocyte Esterase (NEGATIVE) NEGATIVE Urine RBC (0 - 1 rbc/hpf) 0-1 Urine WBC (0 - 1 wbc/hpf) 0-1 Ur Epithelial Cells (0 - 5 EPI/hpf) RARE Urine Bacteria (NONE SEEN) TRACE (<1+) Urine Glucose (NEGATIVE) TRACE Urine Comment CULT NOT INDICATED Microbiology Date/Time Procedure - Status Source Growth 05/17 1155 MRSA Screen - RECD NASAL Imaging CT Scan Abdomen and Pelvis IMPRESSION: 1. Findings suggestive of acute inflammation involving the distal ileum resulting in stricturing. This is causing mild partial obstruction/ileus. 2. Evidence of prior small and large bowel anastomoses, cholecystectomy, appendectomy, and hysterectomy. 3. Mild to moderate retained semisolid stool in the distal colon and rectum. 4. Atherosclerosis. 5. Discussed with Dr. Gonzalez in the emergency room. Dictated by: WANG PETERSEN MD D: VICTOR HUGO;05/17/16 1028 Chest X-Ray IMPRESSION: 1. Negative chest. Dictated by: MILO AGEE MD D: ASIYA;05/17/16 1111 Assessment and Plan Problem List 1. Crohn's disease of ileum Plan -Patient presents with long-standing Crohn's disease -No recent treatment -History of chronic abdominal pain -Solu-Medrol 40 mg IV twice a day -Transition to 5-ASA containing agent when taking orally -Nothing by mouth -Watch for increasing small bowel obstruction -Consider surgical consultation 2. Ileus Plan -Patient with findings of partial small bowel obstruction/ileus -Treatment as above -Nothing by mouth/IV fluids -Consider surgical consultation for persistent obstruction 3. Hemoptysis Plan -Patient gives history of hemoptysis of mild degree -Chest x-ray unremarkable -Observation consider CT scan for persistent findings 4. Diabetes mellitus Status Chronic Onset Date Unknown Plan -Patient with long-standing history of diabetes mellitus -Blood sugar poorly controlled -Hemoglobin A1c elevated at 8.9% -Humalog sliding scale -Diabetic education -Consistent Carbohydrate diet when taking well orally 5. Gastroesophageal reflux Status Chronic Onset Date Unknown Plan -Patient with findings of gastroesophageal reflux -Protonix 40 mg IV daily -Monitor 6. Generalized anxiety disorder Status Chronic Onset Date Unknown Plan -Patient with history of depression/anxiety -Ativan when necessary -Outpatient follow-up with PCP 7. Anemia Status Chronic Onset Date Unknown Plan -Patient with findings of anemia -MCV 83, H&H 10.0/29.1 -Monitor -Most likely secondary to Crohn's disease/GI blood loss -Check stool Hemoccult -We'll obtain B12, folate, serum iron studies Current status: Unstable, fair Anticipated discharge date: Anticipated discharge in 3-4 days Anticipated discharge placement: Home Patient care time: Time spent in chart review, patient interview, physical exam, CPOE, and care documentation: 70 minutes Visit to patient today: 2 Complexity of care: High The patient will require establishment of PCP post discharge. Wishes to follow- up with [facility]. E&M Codes Admission: Inpt-High/[id number]
[2016-05-17 18:26] VITALS: BP 151/87
[2016-05-17 22:25] VITALS: BP 145/84
[2016-05-18 02:45] VITALS: BP 132/69
[2016-05-18] MEDS ORDERED: AMITRIPTYLINE H25 MG PO (06:36)
[2016-05-18] MEDS ORDERED: ZOLOFT50 MG PO (06:37)
[2016-05-18] MEDS ORDERED: LANTUS SOL100 UNITS/ SC (06:39)
[2016-05-18] MEDS ORDERED: HUMULIN R1 ML SC (06:41)
[2016-05-18 07:00] VITALS: BP 133/71
[2016-05-18 10:25] VITALS: BP 114/48
--- NOTE | 2016-05-18 11:13 | Progress Note ---
Subjective General Feeling very slightly improved today. No BM, but continued to have midl abdominal pain. No nausea, vomitting, chest pain. No cough or SOB. Denies passing gas. Physical Exam Vital Signs / I&Os Vital Signs Date Time Temp Pulse Resp B/P Pulse O2 O2 Flow FiO2 Ox Delivery Rate 05/18 1025 36.8 81 18 114/48 99 Room Air 0.0 05/18 0820 Room Air 0.0 05/18 0700 36.8 88 16 133/71 99 Room Air 0.0 05/18 0245 36.9 54 16 132/69 99 Room Air 0.0 05/17 2225 36.8 59 17 145/84 97 Room Air 05/17 2100 Room Air 0.0 05/17 1826 36.8 92 18 151/87 98 Room Air 05/17 1602 Room Air 05/17 1416 36.9 86 16 151/88 100 Room Air 05/17 1359 Room Air 05/17 1218 36.8 77 18 151/80 100 Room Air 0.0 I&O 05/18 0000 05/17 1600 05/17 0800 Intake Total 0 Output Total 300 200 Balance -300 -200 General Appearance Alert, Cooperative, No acute distress Lungs Clear to auscultation, Normal air movement Cardiovascular Regular rate and rhythm, Normal S1 and S2, No murmurs, gallops, rubs Abdomen Soft, Hypoactive bowel sounds. Very mild tenderness diffusely, increased in RLQ withOUT gaurding or peritoneal signs. Extremities No edema Assessment and Plan Problem List 1. Crohn's disease of ileum Plan Possibly improved on steroids. NPO. Will monitor for 24 hrs longer. If worse, will need to consult surgery. 2. Ileus Plan NPO. Allowing for bowel rest. 3. Gastroesophageal reflux Status Chronic Onset Date Unknown Plan On PPI. 4. Diabetes mellitus Status Chronic Onset Date Unknown Plan Hyperglycemic today. Takes much higher doses of insulin at home, however, NPO. Will increase insulin this evening. Will need to significantly increase when taking po.
[2016-05-18] MEDS ORDERED: PROTONIX40 MG PO (13:58)
[2016-05-18] MEDS ORDERED: IRON325 MG PO (13:58)
[2016-05-18 14:37] VITALS: BP 134/72
[2016-05-18 18:25] VITALS: BP 147/82
[2016-05-18 22:30] VITALS: BP 143/89
[2016-05-19 04:17] VITALS: BP 162/94
[2016-05-19 04:47] VITALS: BP 152/83
[2016-05-19 07:00] VITALS: BP 153/106
--- NOTE | 2016-05-19 09:32 | DIAGNOSTIC IMAGING REPORT ---
PROCEDURE: XR ABDOMEN 1 VIEW UPRIGHT INDICATION: eval sbo TECHNIQUE: AP upright view. COMPARISON: CT abdomen/pelvis 05/17/2016. FINDINGS: Pelvic and right upper quadrant surgical changes. There are several mildly dilated loops of bowel centrally with air-fluid levels. There is no free air, mass or suspicious calcifications. Bones are unremarkable. IMPRESSION: 1. Air-fluid levels suspicious for developing small obstruction versus ileus 2. Pelvic and right upper quadrant surgical changes
--- NOTE | 2016-05-19 09:44 | Progress Note ---
Subjective General Patient feels about the same. R sided abdominal pain has not improved, no flatus, no BM. She had some nausea last night, but none at the moment. She states that a similar episode happened about 12 years ago, and she had to have part of her bowel resected at that time. Physical Exam Vital Signs / I&Os Vital Signs Date Time Temp Pulse Resp B/P Pulse O2 O2 Flow FiO2 Ox Delivery Rate 05/19 0829 Room Air 05/19 0700 98.2 83 18 153/106 100 Room Air 0.0 05/19 0447 78 152/83 98 Room Air 05/19 0417 98.1 55 18 162/94 94 Room Air 05/18 2230 97.7 75 18 143/89 97 Room Air 05/18 1945 Room Air 05/18 1825 97.7 80 18 147/82 96 Room Air 05/18 1437 98.4 81 18 134/72 100 Room Air 05/18 1025 98.2 81 18 114/48 99 Room Air 0.0 I&O 05/19 0000 05/18 1600 05/18 0800 Intake Total 1697 0 1848 Output Total 150 500 Balance 1547 -500 1848 General Appearance Alert, Oriented X3, Mild distress Lungs Clear to auscultation Neck Supple Cardiovascular Regular rate and rhythm, Normal S1 and S2, No murmurs, gallops, rubs Abdomen Soft, nondistended, tender throughout but mostly in R half of abdomen, very hypoactive BS Extremities No cyanosis, No clubbing, No edema Skin No Rashes LAB Results Laboratory Tests 05/19 044 Chemistry Plasma Sodium (136 - 145 mmol/L) 139 Plasma Potassium (3.5 - 5.1 mmol/L) 4.4 Plasma Chloride (98 - 107 mmol/L) 105 CO2 (Enzymatic) (21 - 32 mmol/L) 22 BUN (7 - 18 mg/dL) 16 Creatinine (0.6 - 1.3 mg/dL) 0.8 Est GFR ( Amer) (mL/min) >60 Est GFR (Non-Af Amer) (mL/min) >60 Glucose (70 - 110 mg/dL) 188 Plasma Calcium (8.5 - 10.1 mg/dL) 8.4 Hematology WBC (4.5 - 11.5 K/uL) 11.5 RBC (4.00 - 5.20 M/uL) 3.33 Hgb (12.0 - 16.0 gm/dL) 9.4 Hct (36.0 - 46.0 %) 28.1 MCV (80 - 100 fL) 85 MCH (26 - 34 pg) 28 RDW (11.6 - 14.8 %) 14.3 Neut % (Auto) (50 - 75 %) 83.1 Lymph % (Auto) (25 - 40 %) 14.0 [place] % (Auto) (3 - 14 %) 2.6 Eos % (Auto) (0 - 4 %) 0 Baso % (Auto) (0 - 2 %) 0.3 Plt Count, EDTA (150 - 400 K/uL) 279 PUBS MCHC (31 - 37 g/dL) 34 Assessment and Plan Problem List 1. Small bowel obstruction Plan Likely 2/2 stricture from acute inflammation as noted in CT on admission. She has not improved much over the past couple days despite conservative measures. Have consulted general surgery, and repeat upright abdominal xray per his request. Will continue to keep the patient NPO, continue pain control. 2. Crohn's disease of ileum Plan Continue steroids for now for acute flare. Will add cipro/flagyl, and send off stool studies if not already done. 3. Diabetes mellitus Status Chronic Onset Date Unknown Plan BS 200 this AM. Will increase lantus to 20 units qhs. 4. Gastroesophageal reflux Status Chronic Onset Date Unknown Plan Continue PPI. 5. Generalized anxiety disorder Status Chronic Onset Date Unknown Plan Continue amitriptyline and trazodone. FEN: NPO PPx: lovenox Code: FULL Dispo: Pending surg eval and ability to tolerate PO. E&M Codes Rounding: Inpt-High/63745
[2016-05-19 12:17] VITALS: BP 155/86
[2016-05-19 14:55] VITALS: BP 163/77
--- NOTE | 2016-05-19 17:33 | DIAGNOSTIC IMAGING REPORT ---
PROCEDURE: XR SBFT WITH GASTROGRAFIN INDICATION: partial vs complete SBO; h/o Crohn's TECHNIQUE: 240 ml of gastrographin administered orally followed by sequential overhead films. COMPARISON: Upright KUB 05/19/[address] abdomen/pelvis 05/17/2016. FINDINGS: Overhead films obtained over a period of 2.5 hours. Initial film demonstrates right upper quadrant and pelvic surgical changes. Little progressed of gastrographin at 1 hour. The 2.5 hour film demonstrates focal dilation of a loop of small bowel adjacent to the upper pelvic anastomosis. Remainder of the bowel demonstrates normal caliber and mucosal pattern with contrast in the rectum. IMPRESSION: 1. Mildly delayed small bowel follow-through without evidence of obstruction 2. Pelvic and right upper quadrant surgical changes 3. Results discussed with Dr. Sy
[2016-05-19 18:25] VITALS: BP 145/77
[2016-05-20 00:40] VITALS: BP 150/80
[2016-05-20 04:00] VITALS: BP 151/77
[2016-05-20 07:33] VITALS: BP 164/81
[2016-05-20 07:56] VITALS: BP 155/96
[2016-05-20] MEDS ORDERED: PREDNISONE10 MG PO (09:10)
[2016-05-20] MEDS ORDERED: NORCO1 TA1 PO (09:10)
--- NOTE | 2016-05-20 09:15 | Provider's Discharge Care Plan ---
Problem, Goal, Plan Problem List 1. Crohn's disease of ileum Instructions: Follow up as directed, Take meds as directed, Please take your prednisone as prescribed, starting with 4 tabs daily for the next 3 days, then decreasing by 1 tab every week. It is very important that you establish care with a primary care doctor and cot assembler so that you can be placed on maintenance medications and monitored closely. Please return to the ER if your symptoms worsen, or if you develop fevers or uncontrolled diarrhea. 2. Diabetes mellitus Instructions: Follow up as directed, Take meds as directed, Please continue taking your insulin as previously prescribed. Monitor your blood sugars carefully, as they may be high while on prednisone. It is very important that you establish care with a primary care physician for continued monitoring of your diabetes. If your blood sugars are maintaining >300, please call your primary care doctor or come to the emergency room.
--- NOTE | 2016-05-20 09:15 | Provider's Discharge Care Plan ---
Problem, Goal, Plan Problem List 1. Crohn's disease of ileum Instructions: Follow up as directed, Take meds as directed, Please take your prednisone as prescribed, starting with 4 tabs daily for the next 3 days, then decreasing by 1 tab every week. It is very important that you establish care with a primary care doctor and medical leader so that you can be placed on maintenance medications and monitored closely. Please return to the ER if your symptoms worsen, or if you develop fevers or uncontrolled diarrhea. 2. Diabetes mellitus Instructions: Follow up as directed, Take meds as directed, Please continue taking your insulin as previously prescribed. Monitor your blood sugars carefully, as they may be high while on prednisone. It is very important that you establish care with a primary care physician for continued monitoring of your diabetes. If your blood sugars are maintaining >300, please call your primary care doctor or come to the emergency room.
--- NOTE | 2016-05-20 09:39 | Discharge Summary ---
Discharge Summary Report Admit Date 05/18/16 Discharge Date 05/20/16 Admission Diagnosis Possible ileus vs SBO Crohns flare IDDM GERD Generalized anxiety Discharge Diagnosis SBO ruled out Crohns flare IDDM GERD Generalized anxiety Brief History Per H&P by admitting physician: 65-year-old white female with a significant past medical history of Crohn's disease, diabetes mellitus, gastroesophageal reflux, depression, who presented to [facility] emergency department on the day of admission secondary to complaints of abdominal pain. [facility] ER evaluation was consistent with Crohn's disease with abdominal pain nausea and vomiting. Secondary to the above, the patient was admitted by Darrian Mendoza M.D. for further evaluation and treatment. The history of present illness began approximately 3 days prior to admission when the patient developed right-sided abdominal pain. This is most severe in the right lower quadrant. It was initially cramping but soon became chronic/ steady. He had increasing degree of severity. It was associated with nausea and vomiting on the day of admission. Emesis did not contain blood or coffee- ground material. There has been a history of diarrhea. She's had intermittent, chronic abdominal pain over many years. There was no associated fever but the patient does give a history of chills. Secondary to increasing abdominal pain the patient presented to [facility] emergency department for further evaluation and treatment. [facility] ER evaluation showed the patient to have vital signs of blood pressure 160/83, pulse 100, respirations 18, temperature 97.7 Fahrenheit orally. O2 sat 98% room air. Physical exam showed moderate tenderness in the right lower quadrant. CT scan abdomen showed findings of acute inflammation involving the distal ileum with stricturing noted resulting in partial small bowel obstruction. Secondary to above the patient was admitted with a diagnosis of Crohn's disease with acute flare and associated small bowel obstruction Hospital Course Patient was admitted for management of possible ileus vs SBO. She was treated conservatively with bowel rest, IVF's, pain and nausea control. Her symptoms did not seem to improve, and general surgery was consulted due to the concern of a stricture in the distal ileum that could be a potential cause of her obstruction. He reviewed the films with radiology and ordered a small bowel follow through series. This was performed, and there was no evidence of obstruction. Per nursing, patient had been denying that she had any bowel movements, but had found traces of stool in the bathroom. Furthermore, records from [place] were obtained, which revealed a history of odd behavior and fabricating stories during a similar scenario had taken place there in 2006. She had undergone surgical resection of her bowel at that time. Patient was started on a diet, and is tolerating soft foods at this time. Her IV steroids will be transitioned to PO prednisone, and she will undergo a taper of this as an outpatient. She was encouraged to establish care with a PCP and a practice specialist, and a referral was made to [facility] for this. Social work was also consulted to provide numbers for local PCP's. She was instructed to monitor her blood sugars very carefully due to the steroids, and to be sure to take her insulin as prescribed. She was also instructed to return to the ER should her symptoms worsen. Prior to discharge, HUNTING AND FISHING GUIDE found patient on the floor on her L side just 5 minutes after she had left the room to care for another patient. Patient states that her legs got tangled when she was trying to get up from the chair. She denied hitting her head, but was c/o L shoulder pain. An xray was obtained, and she will be discharged if there is no evidence of fracture. She ambulated with nursing prior to discharge. General Appearance Alert, Oriented X3, Cooperative, No acute distress Lungs Clear to auscultation Cardiovascular Regular Rate, Normal S1, Normal S2, No murmurs Abdomen Normal bowel sounds, Soft, tender in R half of abdomen w/o rebound or guarding Skin No Rashes Neurological nonfocal Psych/Mental Status Mental status NL, Mood NL Lab/Imaging Laboratory Tests 05/20 0518 Chemistry Plasma Sodium (136 - 145 mmol/L) 138 Plasma Potassium (3.5 - 5.1 mmol/L) 4.6 Plasma Chloride (98 - 107 mmol/L) 103 CO2 (Enzymatic) (21 - 32 mmol/L) 21 BUN (7 - 18 mg/dL) 15 Creatinine (0.6 - 1.3 mg/dL) 0.8 Est GFR ( Amer) (mL/min) >60 Est GFR (Non-Af Amer) (mL/min) >60 Glucose (70 - 110 mg/dL) 226 Plasma Calcium (8.5 - 10.1 mg/dL) 8.6 Phosphorus (2.5 - 4.9 mg/dL) 3.8 Plasma Magnesium (1.8 - 2.4 mg/dL) 1.5 Hematology WBC (4.5 - 11.5 K/uL) 9.3 RBC (4.00 - 5.20 M/uL) 3.66 Hgb (12.0 - 16.0 gm/dL) 10.2 Hct (36.0 - 46.0 %) 30.6 MCV (80 - 100 fL) 84 MCH (26 - 34 pg) 28 RDW (11.6 - 14.8 %) 14.0 Plt Count, EDTA (150 - 400 K/uL) 332 PUBS MCHC (31 - 37 g/dL) 34 Discharge Instructions/Meds Patient was given explicit instructions on her prednisone taper. She was instructed to follow up [place] with a PCP and practice specialist. She was also told to monitor her blood sugars carefully and continue taking her insulin. E&M Codes Discharge: Inpt >30 min spent/[id number]
--- NOTE | 2016-05-20 09:39 | Discharge Summary ---
Discharge Summary Report Admit Date 05/18/16 Discharge Date 05/20/16 Admission Diagnosis Possible ileus vs SBO Crohns flare IDDM GERD Generalized anxiety Discharge Diagnosis SBO ruled out Crohns flare IDDM GERD Generalized anxiety Brief History Per H&P by admitting physician: 65-year-old white female with a significant past medical history of Crohn's disease, diabetes mellitus, gastroesophageal reflux, depression, who presented to [facility] emergency department on the day of admission secondary to complaints of abdominal pain. [facility] ER evaluation was consistent with Crohn's disease with abdominal pain nausea and vomiting. Secondary to the above, the patient was admitted by Darrian Mendoza M.D. for further evaluation and treatment. The history of present illness began approximately 3 days prior to admission when the patient developed right-sided abdominal pain. This is most severe in the right lower quadrant. It was initially cramping but soon became chronic/ steady. He had increasing degree of severity. It was associated with nausea and vomiting on the day of admission. Emesis did not contain blood or coffee- ground material. There has been a history of diarrhea. She's had intermittent, chronic abdominal pain over many years. There was no associated fever but the patient does give a history of chills. Secondary to increasing abdominal pain the patient presented to [facility] emergency department for further evaluation and treatment. [facility] ER evaluation showed the patient to have vital signs of blood pressure 160/83, pulse 100, respirations 18, temperature 97.7 Fahrenheit orally. O2 sat 98% room air. Physical exam showed moderate tenderness in the right lower quadrant. CT scan abdomen showed findings of acute inflammation involving the distal ileum with stricturing noted resulting in partial small bowel obstruction. Secondary to above the patient was admitted with a diagnosis of Crohn's disease with acute flare and associated small bowel obstruction Hospital Course Patient was admitted for management of possible ileus vs SBO. She was treated conservatively with bowel rest, IVF's, pain and nausea control. Her symptoms did not seem to improve, and general surgery was consulted due to the concern of a stricture in the distal ileum that could be a potential cause of her obstruction. He reviewed the films with radiology and ordered a small bowel follow through series. This was performed, and there was no evidence of obstruction. Per nursing, patient had been denying that she had any bowel movements, but had found traces of stool in the bathroom. Furthermore, records from [place] were obtained, which revealed a history of odd behavior and fabricating stories during a similar scenario had taken place there in 2006. She had undergone surgical resection of her bowel at that time. Patient was started on a diet, and is tolerating soft foods at this time. Her IV steroids will be transitioned to PO prednisone, and she will undergo a taper of this as an outpatient. She was encouraged to establish care with a PCP and a western philosophy professor, and a referral was made to [facility] for this. Social work was also consulted to provide numbers for local PCP's. She was instructed to monitor her blood sugars very carefully due to the steroids, and to be sure to take her insulin as prescribed. She was also instructed to return to the ER should her symptoms worsen. Prior to discharge, DIRECTOR OF REIMBURSEMENT found patient on the floor on her L side just 5 minutes after she had left the room to care for another patient. Patient states that her legs got tangled when she was trying to get up from the chair. She denied hitting her head, but was c/o L shoulder pain. An xray was obtained, and she will be discharged if there is no evidence of fracture. She ambulated with nursing prior to discharge. General Appearance Alert, Oriented X3, Cooperative, No acute distress Lungs Clear to auscultation Cardiovascular Regular Rate, Normal S1, Normal S2, No murmurs Abdomen Normal bowel sounds, Soft, tender in R half of abdomen w/o rebound or guarding Skin No Rashes Neurological nonfocal Psych/Mental Status Mental status NL, Mood NL Lab/Imaging Laboratory Tests 05/20 0518 Chemistry Plasma Sodium (136 - 145 mmol/L) 138 Plasma Potassium (3.5 - 5.1 mmol/L) 4.6 Plasma Chloride (98 - 107 mmol/L) 103 CO2 (Enzymatic) (21 - 32 mmol/L) 21 BUN (7 - 18 mg/dL) 15 Creatinine (0.6 - 1.3 mg/dL) 0.8 Est GFR ( Amer) (mL/min) >60 Est GFR (Non-Af Amer) (mL/min) >60 Glucose (70 - 110 mg/dL) 226 Plasma Calcium (8.5 - 10.1 mg/dL) 8.6 Phosphorus (2.5 - 4.9 mg/dL) 3.8 Plasma Magnesium (1.8 - 2.4 mg/dL) 1.5 Hematology WBC (4.5 - 11.5 K/uL) 9.3 RBC (4.00 - 5.20 M/uL) 3.66 Hgb (12.0 - 16.0 gm/dL) 10.2 Hct (36.0 - 46.0 %) 30.6 MCV (80 - 100 fL) 84 MCH (26 - 34 pg) 28 RDW (11.6 - 14.8 %) 14.0 Plt Count, EDTA (150 - 400 K/uL) 332 PUBS MCHC (31 - 37 g/dL) 34 Discharge Instructions/Meds Patient was given explicit instructions on her prednisone taper. She was instructed to follow up P[place] with a PCP and western philosophy professor. She was also told to monitor her blood sugars carefully and continue taking her insulin. E&M Codes Discharge: Inpt >30 min spent/[id number]
--- NOTE | 2016-05-20 09:46 | DIAGNOSTIC IMAGING REPORT ---
PROCEDURE: XR SHOULDER 2 OR MORE VW-LEFT INDICATION: Fall. TECHNIQUE: Three views. COMPARISON: None. FINDINGS: Mild degenerative changes of the acromion and left acromioclavicular joint. Moderate degenerative changes of the left glenohumeral joint. There is no evidence of acute process or fracture. IMPRESSION: 1. Mild to moderate degenerative changes. 2. Otherwise negative left shoulder.
--- NOTE | 2016-05-23 08:11 | ED DISCHARGE INSTRUCTIONS ---
Patient: JIGAR BANDA General Instructions [facility] VisitID: [id number] [address] [place] [address] 65y, F Registration Date/Time: 05/17/2016 Minor hemoptysis acute crohn's flare acute partial ileus acute intractable right lower quadrant abdominal pain hemoptysis. INSTRUCTIONS Warnings: Further evaluation is necessary. GENERAL WARNINGS: Return or contact your physician immediately if your condition worsens or changes unexpectedly, if not improving as expected, or if other problems arise. Your Current Medications: CONTINUE TAKING THE FOLLOWING MEDICATIONS: Amitriptyline HCl Oral : 50 mg at bedtime. Heart burn medication*. HumuLIN R Injection : sliding scale. Lantus Subcutaneous : Solution 100 unit/mL, 60 Units every AM. Zoloft Oral. Follow-up: Follow up with a carcass splitter- as recommended by your primary care physician. Understanding of the discharge instructions verbalized by patient. Follow-up with: [facility], , , [address], , [place], [phone] Follow up in five days. Call for the next available appointment. ADDITIONAL INFORMATION Hemoptysis Hemoptysis is the medical term for "coughing up blood". There are many causes for this including minor illnesses such as bronchitis. Hemoptysis can also be an early sign of more serious illnesses such as a pneumonia, blood clot in the lung, cancer, tuberculosis and pneumonia. Less common causes of hemoptysis can be hard to diagnose in an emergency department or a clinic. Therefore, further testing will be needed if the symptoms continue. Home Care: Avoid exposure to cigarette smoke. Smoke irritates the bronchial passages. Unless you are taking daily aspirin to prevent stroke or heart attack, avoid aspirin and products that contain aspirin. Aspirin affects the clotting system and may make hemoptysis worse. If you have a lung infection, extra fluid will help loosen secretions in the lungs. Tbkg-efa-bysbxyo cough medicines which contain "dextromethorphan" (such as Robitussin DM) may help reduce coughing. If you were prescribed an antibiotic, take it until it is all gone. Take it even if you are feeling better after only a few days. Follow Up with your doctor or as advised if the bloody cough continues for more than 24 hours. Get Prompt Medical Attention if any of the following occur: Coughing up more than 1 cup of blood within 24 hours Fever over 100.4F (38.0C) for more than three days Trouble breathing, wheezing or pain with breathing Chest pain or chest pressure Feeling very weak or fainting You have been given the following additional information: Hemoptysis (Electronically signed by Mayo Gonzalez Dr. 05/23/2016 8:11)
--- NOTE | 2016-05-23 08:11 | ED DISCHARGE INSTRUCTIONS ---
Patient: JIGAR BANDA General Instructions [facility] VisitID: [id number] [address] [place] [address] 65y, F Registration Date/Time: 05/17/2016 Minor hemoptysis acute crohn's flare acute partial ileus acute intractable right lower quadrant abdominal pain hemoptysis. INSTRUCTIONS Warnings: Further evaluation is necessary. GENERAL WARNINGS: Return or contact your physician immediately if your condition worsens or changes unexpectedly, if not improving as expected, or if other problems arise. Your Current Medications: CONTINUE TAKING THE FOLLOWING MEDICATIONS: Amitriptyline HCl Oral : 50 mg at bedtime. Heart burn medication*. HumuLIN R Injection : sliding scale. Lantus Subcutaneous : Solution 100 unit/mL, 60 Units every AM. Zoloft Oral. Follow-up: Follow up with a ore tester- as recommended by your primary care physician. Understanding of the discharge instructions verbalized by patient. Follow-up with: [facility], , , [address], , [place], [phone] Follow up in five days. Call for the next available appointment. ADDITIONAL INFORMATION Hemoptysis Hemoptysis is the medical term for "coughing up blood". There are many causes for this including minor illnesses such as bronchitis. Hemoptysis can also be an early sign of more serious illnesses such as a pneumonia, blood clot in the lung, cancer, tuberculosis and pneumonia. Less common causes of hemoptysis can be hard to diagnose in an emergency department or a clinic. Therefore, further testing will be needed if the symptoms continue. Home Care: Avoid exposure to cigarette smoke. Smoke irritates the bronchial passages. Unless you are taking daily aspirin to prevent stroke or heart attack, avoid aspirin and products that contain aspirin. Aspirin affects the clotting system and may make hemoptysis worse. If you have a lung infection, extra fluid will help loosen secretions in the lungs. Cnzi-kxz-btbdorf cough medicines which contain "dextromethorphan" (such as Robitussin DM) may help reduce coughing. If you were prescribed an antibiotic, take it until it is all gone. Take it even if you are feeling better after only a few days. Follow Up with your doctor or as advised if the bloody cough continues for more than 24 hours. Get Prompt Medical Attention if any of the following occur: Coughing up more than 1 cup of blood within 24 hours Fever over 100.4F (38.0C) for more than three days Trouble breathing, wheezing or pain with breathing Chest pain or chest pressure Feeling very weak or fainting You have been given the following additional information: Hemoptysis (Electronically signed by Mayo Gonzalez Dr. 05/23/2016 8:11)
--- NOTE | 2016-05-23 08:11 | ED MAR SUMMARY ---
..... Medication Administration Record Located Within [facility] [address] [place] [address] Patient: JIGAR BANDA Visit ID: [id number] 65y, F Weight: 66.6 kg Height/Length: 65 in BMI: 24.5 ALLERGIES: Codeine Start 08:05/17/2016 Marcio Jonas R.N., Stop 11:05/17/2016 Marcio Jonas R.N. Medication Administered: IV NS (SALINE), Dose: IV Fluids over 1 hour(s), Rate: 1000 mL/hr, Dispensed: 1000 mL bag, Site: #1 left AC. Medication Ordered: IV NS : initial bolus 500 mL (1000 mL/hr), then 125 mL/hr for 4h (NOW); Urgent. Given 05/17/2016 Marcio Jonas R.N. Medication Administered: DILAUDID [IVP] (HYDROMORPHONE HCL PF), Dose: 0.5 mg IVP over 2 minute(s), Site: #1 left AC. Medication Ordered: Dilaudid IV 0.5 mg (HIGH ALERT MEDICATION, NOW). Given :05/17/2016 Marcio Jonas R.N. Medication Administered: ZOFRAN [IVP] (ONDANSETRON HCL), Dose: 4 mg IVP over 2 minute(s), Site: #1 left AC. Medication Ordered: Zofran IV 4 mg (NOW). Given 09:05/17/2016 Marcio Jonas R.N. Medication Administered: DILAUDID [IVP] (HYDROMORPHONE HCL PF), Dose: 0.5 mg IVP over 2 minute(s), Site: #1 left AC. Medication Ordered: Dilaudid IV 0.5 mg (HIGH ALERT MEDICATION, NOW). Given :05/17/2016 Celeste Ruiz R.N. Medication Administered: SOLU-MEDROL [IVP] (METHYLPREDNISOLONE SODIUM SUCC), Dose: 125 mg IVP, Site: #1 left AC. Medication Ordered: Solu-MEDROL IV 125 mg (NOW). Given 11:05/17/2016 Joseph, Celeste, R.N. Medication Administered: DILAUDID [IVP] (HYDROMORPHONE HCL PF), Dose: 1 mg IVP, Site: #1 left AC. Medication Ordered: Dilaudid IV 1 mg (HIGH ALERT MEDICATION, NOW). Given 11:12 05/17/2016 Celeste Ruiz R.N. Medication Administered: ZOFRAN [IVP] (ONDANSETRON HCL), Dose: 4 mg IVP over 2 minute(s), Site: #1 left AC. Medication Ordered: Zofran IV 4 mg (NOW).
--- NOTE | 2016-05-23 08:11 | ED MAR SUMMARY ---
..... Medication Administration Record [facility] [address] [place] [address] Patient: JIGAR BANDA Visit ID: [id number] 65y, F Weight: 66.6 kg Height/Length: 65 in BMI: 24.5 ALLERGIES: Codeine Start 08:05/17/2016 Marcio Jonas R.N., Stop 11:05/17/2016 Marcio Jonas R.N. Medication Administered: IV NS (SALINE), Dose: IV Fluids over 1 hour(s), Rate: 1000 mL/hr, Dispensed: 1000 mL bag, Site: #1 left AC. Medication Ordered: IV NS : initial bolus 500 mL (1000 mL/hr), then 125 mL/hr for 4h (NOW); Urgent. Given 05/17/2016 Marcio Jonas R.N. Medication Administered: DILAUDID [IVP] (HYDROMORPHONE HCL PF), Dose: 0.5 mg IVP over 2 minute(s), Site: #1 left AC. Medication Ordered: Dilaudid IV 0.5 mg (HIGH ALERT MEDICATION, NOW). Given :05/17/2016 Marcio Jonas R.N. Medication Administered: ZOFRAN [IVP] (ONDANSETRON HCL), Dose: 4 mg IVP over 2 minute(s), Site: #1 left AC. Medication Ordered: Zofran IV 4 mg (NOW). Given 09:05/17/2016 Marcio Jonas R.N. Medication Administered: DILAUDID [IVP] (HYDROMORPHONE HCL PF), Dose: 0.5 mg IVP over 2 minute(s), Site: #1 left AC. Medication Ordered: Dilaudid IV 0.5 mg (HIGH ALERT MEDICATION, NOW). Given :05/17/2016 Celeste Ruiz R.N. Medication Administered: SOLU-MEDROL [IVP] (METHYLPREDNISOLONE SODIUM SUCC), Dose: 125 mg IVP, Site: #1 left AC. Medication Ordered: Solu-MEDROL IV 125 mg (NOW). Given 11:05/17/2016 Joseph, Celeste, R.N. Medication Administered: DILAUDID [IVP] (HYDROMORPHONE HCL PF), Dose: 1 mg IVP, Site: #1 left AC. Medication Ordered: Dilaudid IV 1 mg (HIGH ALERT MEDICATION, NOW). Given 11:12 05/17/2016 Celeste Ruiz R.N. Medication Administered: ZOFRAN [IVP] (ONDANSETRON HCL), Dose: 4 mg IVP over 2 minute(s), Site: #1 left AC. Medication Ordered: Zofran IV 4 mg (NOW).
--- NOTE | 2016-05-23 08:12 | ED MED RECONCILIATION SUMMARY ---
Patient: JIGAR BANDA Medication Reconciliation Report [facility] VisitID: [id number] [address] [place] [address] 65y, F Registration Date/Time: 05/17/2016 Weight: 66.6 kg Height/Length: 65 in. BMI: 24.5 ALLERGIES: Codeine The patient's Home Medications are listed below: CONTINUE TAKING THE FOLLOWING MEDICATIONS: Amitriptyline HCl Oral 50 mg, at bedtime Heart burn medication HumuLIN R Injection, sliding scale Lantus Subcutaneous (100 unit/mL) 60 Units, every AM Zoloft Oral The source(s) of the original Home Medication information: patient's family member patient The following Medications were given to the patient in the Emergency Department: IV NS IV Fluids bolus 0, then 1000 mL/hr, administered: 05/17/2016 8:24:00 AM Dilaudid [IVP] IVP 0.5 mg, administered: 05/17/2016 8:29:00 AM Zofran [IVP] IVP 4 mg, administered: 05/17/2016 8:29:00 AM Dilaudid [IVP] IVP 0.5 mg, administered: 05/17/2016 9:04:00 AM SOLU-MEDROL [IVP] IVP 125 mg, administered: 05/17/2016 11:01:00 AM Dilaudid [IVP] IVP 1 mg, administered: 05/17/2016 11:12:00 AM Zofran [IVP] IVP 4 mg, administered: 05/17/2016 11:12:00 AM The following Medications were prescribed to the patient: None.
--- NOTE | 2016-05-23 08:12 | ED MED RECONCILIATION SUMMARY ---
Patient: JIGAR BANDA Medication Reconciliation Report [facility] VisitID: [id number] [address] [place] [address] 65y, F Registration Date/Time: 05/17/2016 Weight: 66.6 kg Height/Length: 65 in. BMI: 24.5 ALLERGIES: Codeine The patient's Home Medications are listed below: CONTINUE TAKING THE FOLLOWING MEDICATIONS: Amitriptyline HCl Oral 50 mg, at bedtime Heart burn medication HumuLIN R Injection, sliding scale Lantus Subcutaneous (100 unit/mL) 60 Units, every AM Zoloft Oral The source(s) of the original Home Medication information: patient's family member patient The following Medications were given to the patient in the Emergency Department: IV NS IV Fluids bolus 0, then 1000 mL/hr, administered: 05/17/2016 8:24:00 AM Dilaudid [IVP] IVP 0.5 mg, administered: 05/17/2016 8:29:00 AM Zofran [IVP] IVP 4 mg, administered: 05/17/2016 8:29:00 AM Dilaudid [IVP] IVP 0.5 mg, administered: 05/17/2016 9:04:00 AM SOLU-MEDROL [IVP] IVP 125 mg, administered: 05/17/2016 11:01:00 AM Dilaudid [IVP] IVP 1 mg, administered: 05/17/2016 11:12:00 AM Zofran [IVP] IVP 4 mg, administered: 05/17/2016 11:12:00 AM The following Medications were prescribed to the patient: None.
== END 2016-05-20 11:00 | disposition home or self-care (01) | DRG 245 ==
LOC: ED SRH 07:23 → TRANS SRH 10:47 → ACUTE2 SRH 11:44
PROVIDERS: ADMIT Student in an Organized Health Care Education/Training Program
DX: K50.018 Crohn's disease of small intestine with other complication (principal); E11.65 Type 2 diabetes mellitus with hyperglycemia; Z79.4 Long term (current) use of insulin; D50.0 Iron deficiency anemia secondary to blood loss (chronic); K21.9 Gastro-esophageal reflux disease without esophagitis; F41.1 Generalized anxiety disorder; F32.9 Major depressive disorder, single episode, unspecified; R04.2 Hemoptysis; M25.512 Pain in left shoulder; Z90.49 Acquired absence of other specified parts of digestive tract

== ENCOUNTER 2016-09-16 09:32 | Inpatient (IN) | payer OTHER ==
[~2016-09-16] VITALS: Ht 165.1 cm; Wt 62.5 kg
[~2016-09-16 09:32] MED LIST: AMITRIPTYLINE H25 MG PO; HUMULIN R1 ML SC; IRON325 MG PO; LANTUS SOL100 UNITS/ SC; NORCO1 TA1 PO; PREDNISONE10 MG PO; PROTONIX40 MG PO; ZOLOFT50 MG PO
--- NOTE | 2016-09-16 11:13 | DIAGNOSTIC IMAGING REPORT ---
PROCEDURE: XR ABDOMEN 1 VIEW INDICATION: OBSTRUCTION TECHNIQUE: AP supine view. COMPARISON: Abdomen 05/19/2016. FINDINGS: NG tube in place with tip in the stomach. Right upper quadrant, lower abdominal surgical clips, right lower quadrant and pelvic sutures. Small nonspecific air-fluid levels. No pelvic mass or suspicious calcification. Bones are unremarkable. IMPRESSION: 1. NG tube in the stomach 2. Postsurgical changes with nonspecific air-fluid levels.
--- NOTE | 2016-09-16 12:50 | DIAGNOSTIC IMAGING REPORT ---
PROCEDURE: CT ABD/PELVIS WITH CONTRAST CLINICAL INDICATION: Right lower quadrant pain. TECHNIQUE: 125 ml of Isovue 300 were injected intravenously and axial images were obtained of the entire abdomen and pelvis with sagittal and coronal reformations. COMPARISON: CT abdomen/pelvis 05/17/2016. FINDINGS: ABDOMEN: Lung base are clear. Normal heart size. NG tube tip in the stomach. There are two right lower quadrant anastomoses. Fluid in the ascending colon and mildly prominent fluid filled mid small bowel There is a long segment of the distal and demonstrating narrowing, mucosal thickening and hyperemia with adjacent inflammatory changes. Appearance is similar to the prior CT scan. There are a few prominent right lower quadrant lymph nodes. Cholecystectomy. Liver, pancreas, spleen, adrenal glands and left kidney are normal. Small cortical right renal cyst. Moderate atherosclerosis of the aorta. Moderate stool in the descending and sigmoid colon. PELVIS: Rectosigmoid anastomosis. Status post appendectomy and hysterectomy. No pelvic mass, free fluid or free air. No suspicious osseous lesions. IMPRESSION: 1. Findings suggestive of inflammatory changes of the distal ileum with stricturing and mild partial small-bowel obstruction/ileus, similar to prior CT scan. Findings consistent with Crohn disease. 2. NG tube with the tip in the stomach 3. Right lower quadrant small bowel and rectosigmoid anastomoses, cholecystectomy, appendectomy and hysterectomy 4. Obstipation of the distal colon 5. Results discussed with Dr. Arana All CT scans at this facility use dose modulation, iterative reconstruction, and/or weight-based dosing when appropriate to reduce radiation dose to as low as reasonably achievable.
--- NOTE | 2016-09-16 13:46 | ED ORDER SUMMARY ---
..... Patient: JIGAR BANDA OrderSheet [facility] VisitID: [id number] [address] [place] [address] 66y, F Registration Date/Time: 09/16/2016 ORDER SHEET Weight: 66.6 kg (stated) Allergies: Codeine GENERAL ORDERS: Abdomen 1V Urgent (09:44 09/16/2016 Cris Clayton) (Ack 9:45 RKaruga) (10:55 LWhalen R.N.) CBC w Diff Urgent (09:09/16/2016 Cris Clayton) (Ack 9:45 RKaruga) (10:19 JSimbeck R.N.) CMP Urgent (:09/16/2016 Cris Clayton) (Ack 9:45 RKaruga) (10:19 JSniloeck R.N.) UA-Culture if indicated Urgent (:09/16/2016 Cris Clayton) (Ack 9:45 RKaruga) (10:55 LWhalen R.N.) Amylase Urgent (09:09/16/2016 Cris Clayton) (Ack 9:45 RKaruga) (10:19 Richieeck R.N.) Lipase Urgent (:09/16/2016 Cris Clayton) (Ack 9:45 RKaruga) (10:19 Richieeck R.N.) NG Tube (:09/16/2016 Cris Clayton) (10:55 LWhalen R.N.) CT Abd/Pel w Cont (No) (11/0.9) (SBO) Urgent (10:44 09/16/2016 Cris Clayton) (Cancelled: Physician Order10:48 Cris Clayton) CT Abd/Pel w Cont (Yes) (11/0.9) (SBO) Urgent (10:48 09/16/2016 Cris Clayton) (Ack 10:54 RKaruga) (10:55 LWhalen R.N.) MEDICATION ORDERS: IV FLUIDS: IV NS : initial bolus none -, then 1000 mL/hr for X1 (NOW) (09:43 09/16/2016Britany Lynch Dr.) (Cancelled: Other10:53 LWcharo R.N.) Zofran IV 4 mg (NOW) (09:43 09/16/2016 Cris Clayton) (10:51 LWcharo R.N.) IV Lactated Ringers : initial bolus none -, then 200 mL/hr for x1 (NOW) (10:48 09/16/2016 Cris Clayton) (10:55 LWcharo R.N.) Demerol IV 25 mg (HIGH ALERT MEDICATION, NOW) (11:09 09/16/2016 Cris Clayton) (11:20 LWcharo R.N.) Demerol IV 25 mg (HIGH ALERT MEDICATION, NOW) (12:11 09/16/2016 Cris Clayton) (Ack 12:13 Teodora R.N.) (12:15 LWcharo R.N.) ORDER SHEET NOTES: [Electronically signed by Andrea Arana Dr. (15:07 09/16/2016)] [Electronically signed by Stephen Downs R.N. (15:47 09/16/2016)] [Electronically locked/signed by Stephen Downs R.N. (15:47 09/16/2016)]
--- NOTE | 2016-09-16 13:46 | ED ORDER SUMMARY ---
..... Patient: JIGAR BANDA OrderSheet [facility] VisitID: [id number] [address] [address] [place] [address] 66y, F Registration Date/Time: 09/16/2016 ORDER SHEET Weight: 66.6 kg (stated) Allergies: Codeine GENERAL ORDERS: Abdomen 1V Urgent (09:44 09/16/2016 Cris Clayton) (Ack 9:45 RKaruga) (10:55 LWhalen R.N.) CBC w Diff Urgent (09:09/16/2016 Cris Clayton) (Ack 9:45 RKaruga) (10:19 JSimbeck R.N.) CMP Urgent (:09/16/2016 Cris Clayton) (Ack 9:45 RKaruga) (10:19 JSniloeck R.N.) UA-Culture if indicated Urgent (:09/16/2016 Cris Clayton) (Ack 9:45 RKaruga) (10:55 LWhalen R.N.) Amylase Urgent (09:09/16/2016 Cris Clayton) (Ack 9:45 RKaruga) (10:19 Richieeck R.N.) Lipase Urgent (:09/16/2016 Cris Clayton) (Ack 9:45 RKaruga) (10:19 Richieeck R.N.) NG Tube (:09/16/2016 Cris Clayton) (10:55 LWhalen R.N.) CT Abd/Pel w Cont (No) (11/0.9) (SBO) Urgent (10:44 09/16/2016 Cris Clayton) (Cancelled: Physician Order10:48 Cris Clayton) CT Abd/Pel w Cont (Yes) (11/0.9) (SBO) Urgent (10:48 09/16/2016 Cris Clayton) (Ack 10:54 RKaruga) (10:55 LWhalen R.N.) MEDICATION ORDERS: IV FLUIDS: IV NS : initial bolus none -, then 1000 mL/hr for X1 (NOW) (09:43 09/16/2016Britany Lynch Dr.) (Cancelled: Other10:53 LWcharo R.N.) Zofran IV 4 mg (NOW) (09:43 09/16/2016 Cris Clayton) (10:51 LWcharo R.N.) IV Lactated Ringers : initial bolus none -, then 200 mL/hr for x1 (NOW) (10:48 09/16/2016 Cris Clayton) (10:55 LWcharo R.N.) Demerol IV 25 mg (HIGH ALERT MEDICATION, NOW) (11:09 09/16/2016 Cris Clayton) (11:20 LWcharo R.N.) Demerol IV 25 mg (HIGH ALERT MEDICATION, NOW) (12:11 09/16/2016 Cris Clayton) (Ack 12:13 Teodora R.N.) (12:15 LWcharo R.N.) ORDER SHEET NOTES: [Electronically signed by Andrea Arana Dr. (15:07 09/16/2016)] [Electronically signed by tSephen Downs R.N. (15:47 09/16/2016)] [Electronically locked/signed by Stephen Downs R.N. (15:47 09/16/2016)]
--- NOTE | 2016-09-16 13:46 | ED CLINICAL REPORT ---
Clinical Report - Physicians/Mid Levels [facility] [address] [place] [address] 09/16/2016 9:33 Patient: JIGAR BANDA Time Seen: 09:40; initial patient contact. Arrived- By private vehicle. Historian- patient. HISTORY OF PRESENT ILLNESS Chief Complaint: ABDOMINAL PAIN. It is described as "pain". No radiation. It is described as located in the right lower quadrant. At its maximum, severity described as moderate. When seen in the E.D., severity described as moderate. Modifying factors- worsened by food and swallowing. Not relieved by anything. This started today. The patient has had nausea, loss of appetite and vomiting. No diarrhea. Similar symptoms previously: Many times (Same as prior SBO). Recent medical care: Not recently seen/assessed. REVIEW OF SYSTEMS The patient has had constipation. No hematemesis, difficulty with urination, pain with urination, fever or chills. All systems otherwise negative, except as recorded above. PAST HISTORY Heart Murmur. Heart burn. Anxiety Reaction. Near Syncope. Anemia. Cellulitis. MRSA Infection. Crohn's Disease. Contusion. Healing Abscess. Abscess. Diabetes Mellitus. Hypertension. Additional Surgeries: Appendectomy. Cholecystectomy. Dental Surgery. Hysterectomy. Tubal . SOCIAL HISTORY Former smoker. Occasional alcohol use. No drug use. ADDITIONAL NOTES The nursing notes have been reviewed. PHYSICAL EXAM Vital Signs: 09/16/2016 09:45 BP: 122/82. HR: 85. RR: 18. O2 saturation: 94%. Temp: 98.5 F. Have been reviewed. Blood pressure normal. Heart rate normal. Respiratory rate normal. Temperature normal. Oxygen saturation low. Appearance: Alert. Oriented X3. Patient in mild distress. Eyes: Eyes normal inspection. ENT: Dry mucous membranes present. CVS: Normal heart rate and rhythm. 1/6 holosystolic systolic murmur. Respiratory: No respiratory distress. Breath sounds normal. Abdomen: Soft. Moderate tenderness in the right lower quadrant with guarding present. No rebound tenderness. Abnormal bowel sounds: high pitched. Distention with tympany to percussion. Skin: Skin warm and dry. Normal skin color. Extremities: No lower extremity edema. Neuro: Oriented X 3. LABS, X-RAYS, AND EKG Abdominal CT: 1. Findings suggestive of inflammatory changes of the distal ileum with stricturing and mild partial small-bowel obstruction/ileus, similar to prior CT scan. Findings consistent with Crohn disease. 2. NG tube with the tip in the stomach 3. Right lower quadrant small bowel and rectosigmoid anastomoses, cholecystectomy, appendectomy and hysterectomy 4. Obstipation of the distal colon. Study type: abdomen and pelvis. Abdominal CT performed with IV contrast. The study was independently viewed by me, interpreted by the radiologist and discussed with the radiologist. A comparison with prior studies reveals that the findings are unchanged. Laboratory Tests: UA-Culture if indicated: (QUINTON: 09/16/2016 11:00) ( MsgRcvd 09/16/2016 11:28) Final results Test Result Flag Units (Reference) URINE COLOR YELLOW URINE APPEARANCE CLOUDY URINE GLUCOSE NEGATIVE (NEGATIVE) URINE BILIRUBIN NEGATIVE (NEGATIVE) URINE KETONE NEGATIVE (NEGATIVE) URINE SPECIFIC GRAVITY 1.025 (1.010-1.030) URINE PH 6.0 (5.0-8.0) URINE PROTEIN TRACE (NEGATIVE) URINE UROBILINOGEN 0.2 EU/dL (0.2-1.0) URINE NITRITE NEGATIVE (NEGATIVE) URINE BLOOD TRACE-INTACT (NEGATIVE) URINE LEUK ESTERASE TRACE (NEGATIVE) URINE RBC 0-1 rbc/hpf (0-1) URINE WBC 5-10 wbc/hpf (0-1) URINE EPITHELIAL CELLS 3-5 EPI/hpf (0-5) URINE BACTERIA MODERATE (2+ TO 3+) (NONE SEEN) URINE COMMENT CULTURE INDICATED 3+ MUCOUSURINE CULTURES ARE SET-UP BASED ON THE FOLLOWING CRITERIA:POSITIVE NITRITEPOSITIVE LEUKOCYTE ESTERASEGREATER THAN 10 WHITE BLOOD CELLSMODERATE (2+) OR GREATER BACTERIA CBC w Diff: (QUINTON: 09/16/2016 10:15) ( MsgRcvd 09/16/2016 10:25) Final results Test Result Flag Units (Reference) WHITE BLOOD COUNT 8.2 K/uL (4.5-11.5) RED BLOOD COUNT 3.36 L M/uL (4.00-5.20) HEMOGLOBIN 9.4 L gm/dL (12.0-16.0) HEMATOCRIT 27.9 L % (36.0-46.0) MEAN CELL VOLUME 83 fL (80-100) MEAN CORPUSCULAR HGB 28 pg (26-34) MEAN CORPUSCULAR HGB CONC 34 g/dL (31-37) RED CELL DISTRIBUTION WIDTH 13.9 % (11.6-14.8) PLATELET COUNT 329 K/uL (150-400) NEUTROPHIL % 61.7 % (50-75) LYMPH % 26.6 % (25-40) MONO % 9.5 % (3-14) EOSINOPHIL % 1.9 % (0-4) BASOPHIL % 0.3 % (0-2) CMP: (QUINTON: 09/16/2016 10:15) ( MsgRcvd 09/16/2016 10:40) Final results Test Result Flag Units (Reference) GLUCOSE 125 H mg/dL (70-110) BUN 11 mg/dL (7-18) CREATININE 0.9 mg/dL (0.6-1.3) Estimated GFR >60 mL/min Estimated GFR- >60 mL/min Note: Persistent reduction over 3 months in eGFR<60 mL/min/1.73 m2 defines CKD. Patients with eGFR values>=60 mL/min/1.73 m2 may also have CKD if evidence ofpersistent proteinuria. Additional information may be foundat www.kidney.org. SODIUM 141 mmol/L (136-145) POTASSIUM 3.7 mmol/L (3.5-5.1) CHLORIDE 106 mmol/L (98-107) CARBON DIOXIDE 26 mmol/L (21-32) CALCIUM 8.6 mg/dL (8.5-10.1) TOTAL PROTEIN 7.5 g/dL (6.4-8.2) ALBUMIN 3.2 L g/dL (3.3-5.0) BILIRUBIN, TOTAL 0.5 mg/dL (0.0-1.0) ALKALINE PHOSPHATASE 77 U/L (46-116) AST (SGOT) 20 U/L (15-37) ALT (SGPT) 27 U/L (12-78) LIPASE 117 U/L (73-393) AMYLASE 36 U/L (25-115) . PROGRESS AND PROCEDURES Discussed case with hospitalist, (call returned 13:37 Dr. Macedo, will accept and asks to consult Sx.). Reviewed test results and need for additional work-up. Health care provider will see patient in ED. Discussed case with on-call health care provider, (call returned 13:46 Dr. Faustin, will consult on pt.). Health care provider will see patient in hospital. Disposition: Admitted to Acute Care. Condition: good. Admit decision based on need for monitoring, IV hydration and stabilization of condition. CLINICAL IMPRESSION Partial small bowel obstruction (Crohn's). Crohn's disease in the small and large intestine with obstruction. INSTRUCTIONS Follow-up: Screening today revealed the patient's blood pressure to be in the pre-hypertensive range. The patient was admitted and blood pressure will be managed during the admission. (Electronically signed by Andrea Arana Dr. 09/16/2016 15:07)
--- NOTE | 2016-09-16 13:46 | ED NURSING NOTES ---
Clinical Report - Nurses [facility] [address] [place] [address] 09/16/2016 9:33 Patient: JIGAR BANDA TRIAGE Triage time 09:45 Sep 16 2016. Acuity: LEVEL 3. Chief Complaint: ABDOMINAL PAIN, NAUSEA, VOMITING and DIARRHEA. MEHNAZ COMA SCORE: Mehnaz Coma Scale: 15- eyes open spontaneously (4); best verbal response- oriented x 4 (5); best motor response- obeys commands (6). --10:13 Stephen Downs R.N. 09:45 09/16/16. BP: 122/82. HR: 85. RR: 18. O2 saturation: 94%. Temp: 98.5 F. Pain level now 5/10. --10:13 Stephen Downs R.N. Weight: 66.6 kg stated. Height/Length: 66 inches Per Patient. BMI: 23.7. --09:45 Stephen Downs R.N. Medications Amitriptyline HCl Oral 50 mg, at bedtime. Heart burn medication. HumuLIN R Injection (sliding scale). Lantus Subcutaneous (Solution 100 unit/mL) 60 Units, every AM. Zoloft Oral. --09:48 Stephen Downs R.N. Allergies Codeine. --09:48 Stephen Downs R.N. History Arrived by private vehicle. Historian: patient. Accompanied by family. SOCIAL HX: Smoker- current status unknown. SELF HARM ASSESSMENT: A self harm assessment was performed. The patient answered "no" to the question "Have you recently felt down, depressed, or hopeless?". FALL RISK ASSESSMENT: Fall risk assessment completed. No fall risk identified. NUTRITIONAL RISK ASSESSMENT: The nutritional risk assessment revealed no deficiencies. FUNCTIONAL ASSESSMENT: Functional assessment: no impairments noted. LEARNING NEEDS ASSESSMENT: The learning needs assessment revealed no barriers. SKIN INTEGRITY ASSESSMENT: Skin integrity risk assessment completed. No skin integrity risk identified. --10:13 Stephen Downs R.N. PROBLEMS: Heart Murmur. Hemoptysis. Heart burn. Anxiety Reaction. Near Syncope. Anemia. Cellulitis. MRSA Infection. Crohn's Disease. Contusion. Healing Abscess. Abscess. Diabetes Mellitus. Hypertension. --09:48 Stephen Downs R.N. ADDITIONAL SURGERIES: Appendectomy. Cholecystectomy. Dental Surgery. Hysterectomy. Tubal . --09:48 Stephen Downs R.N. Interventions ID band on patient. --10:13 Stephen Downs R.N. PHYSICAL ASSESSMENT Ambulatory to room. GENERAL / NEURO / PSYCH: Alert. Oriented X 4. Appears in no acute distress. HEENT: Mucous membranes are pink. RESPIRATORY: Respirations not labored. Breath sounds within normal limits. CVS: Normal sinus rhythm noted. Capillary refill less than 2 seconds. GI / : The patient has had nausea and diarrhea. Emesis noted. Abdominal distention. Abdomen soft. Abdominal tenderness present. Abdominal tenderness. Normal genitalia. SKIN: Skin is warm and dry. --11:53 Stephen Downs R.N. NURSING PROGRESS NOTES 10:25 09/16/2016 Site #1 started via IV in the left antecubital space with an 20g angiocath, with aseptic technique and good blood return; three attempts. Blood drawn: rainbow set. Labeled in the presence of the patient and sent to the lab. Saline lock flushed with 10 mL saline. --10:51 Stephen Downs R.N. 10:51 09/16/2016 Zofran (Ondansetron HCl) IVP 4 mg given over 2 minute(s) via site #1. Allergies verified and confirmed 5 rights. IV patency established. IV site checked: no pain, redness, or swelling. IV flushed thoroughly pre- and post-medication administration. --10:51 Stephen Downs R.N. 10:55 09/16/2016 Started bag #1 1000 mL IV Fluids IV LACTATED RINGERS; at 200 mL/hr over 8 hour(s) via site #1 via IV pump. Allergies verified and confirmed 5 rights. IV patency established. IV site checked: no pain, redness, or swelling. IV flushed thoroughly pre- and post-medication administration. --10:55 Stephen Downs R.N. 11:09/16/16. :patient confirmed. Clean catch urine collected; sample sent to lab. Specimen labeled in the presence of the patient (pt amb to BR and back). --11:06 Delmi Inman R.N. 11:20 09/16/2016 Demerol (Meperidine HCl) IVP 25 mg given over 2 minute(s) via site #1. Allergies verified and confirmed 5 rights. IV patency established. IV site checked: no pain, redness, or swelling. IV flushed thoroughly pre- and post-medication administration. --11:20 Stephen Downs R.N. The initial plan of care for this patient includes an assessment with efforts to address patient positioning, appropriate ambient lighting and comfortable environmental temperature; impairment of the gastrointestinal system. Pulse oximeter and NIBP monitor placed on patient. Patient gowned. Head of bed elevated 60 degrees. Reassurance given. Call light placed in reach. Side rails up x 1. Bed placed in lowest position. Brakes of bed on. --11:53 Stephen Downs R.N. 12:15 09/16/2016 Demerol (Meperidine HCl) IVP 25 mg given over 2 minute(s) via site #1. Allergies verified and confirmed 5 rights. IV patency established. IV site checked: no pain, redness, or swelling. IV flushed thoroughly pre- and post-medication administration. --12:15 Stephen Downs R.N. 13:45 09/16/16. BP: 144/67. HR: 83. RR: 18. O2 saturation: 94%. 13:09/16/16. BP: 141/66. HR: 82. RR: 18. O2 saturation: 94%. 13:15 09/16/16. BP: 141/64. HR: 86. RR: 18. O2 saturation: 94%. 13:09/16/16. BP: 146/66. HR: 86. RR: 18. O2 saturation: 94%. 12:45 09/16/16. BP: 136/55. HR: 85. RR: 18. O2 saturation: 93%. 12:09/16/16. BP: 150/59. HR: 84. RR: 16. O2 saturation: 93%. 12:15 09/16/16. BP: 158/71. HR: 86. RR: 18. O2 saturation: 97%. 12:00 09/16/16. BP: 140/60. HR: 85. RR: 18. O2 saturation: 97%. 11:15 09/16/16. BP: 161/72. HR: 87. RR: 18. O2 saturation: 98%. 11:00 09/16/16. BP: 164/84. HR: 92. RR: 18. O2 saturation: 98%. 10:30 09/16/16. BP: 147/78. HR: 88. RR: 18. O2 saturation: 99%. --14:08 Stephen Downs R.N. ( Report given to La ESQUIVEL). --15:03 Stephen Downs R.N. 15:00 09/16/16. BP: 145/48. HR: 85. RR: 18. O2 saturation: 96%. 14:00 09/16/16. BP: 159/74. HR: 83. RR: 18. O2 saturation: 94%. --15:26 Stephen Downs R.N. 15:30 09/16/2016 IV Fluids IV LACTATED RINGERS Continued: at the rate of 200 mL/hr. 330 mL remaining bag #1. IV patency established. IV site checked: no pain, redness, or swelling. IV flushed thoroughly. --15:45 Stephen Downs R.N. DISPOSITION / DISCHARGE Admitted to Acute Care (211). --15:26 Stephen Downs R.N. 15:00 09/16/16. BP: 145/48. HR: 85. RR: 18. O2 saturation: 96%. --15:26 Stephen Downs R.N. 15:47 09/16/16. Temp: 98.9 F. Pain level now 05/05. --15:47 Stephen Downs R.N. Locked/Released at 09/16/2016 15:47 by Stephen Downs R.N.
--- NOTE | 2016-09-16 15:00 | Progress Note ---
Subjective General Admission History and Physical Examination Admission status: Acute care. Inpatient Patient Name: Amna River Admission Date: September 16, 2016 Primary Care Provider: None Attending Physician: Saul Macedo M.D. Admitting Physician: Saul Macedo M.D. SUBJECTIVE Historian: Patient Reliability: Fair Chief Complaint: Abdominal pain History of Present Illness: The patient is a 65-year-old white female with a significant past medical history of Crohn's disease, diabetes mellitus, gastroesophageal reflux, depression, who presented to [facility] emergency department on the day of admission with continued complaints of abdominal pain. Patient was seen in the [facility] ER. Patient with symptoms of Crohn's flare. Further evaluations through CT with contrast revealed a stricture in the bowel. Patient showing signs of obstruction. Patient admitted for small bowel obstruction. Nasogastric tube was placed. Patient was placed on an nothing by mouth diet. Surgical consult was made Secondary to the above, the patient was admitted by Saul Macedo M.D. for further evaluation and treatment. The history of present illness began approximately one day prior and on the date of the admission. Patient had worsening right lower quadrant pain. Patient stated that the pain was worsened with eating food and with swallowing.. Patient reports that she had vomited most of the day yesterday.. Patient states that she's been having multiple bowel movements. Her stools range from thin caliber based stools to runny diarrhea. Patient has frequent bowel movements. Patient furthermore complained of ongoing pain since her admission in April 2016. Patient states that she never got over her illness that she had in April. During her visit in the emergency Department on date of admission the patient is complaining of right lower quadrant pain. Her examination showed moderate tenderness in the right lower quadrant with guarding. No rebound. The bowel sounds were abnormal, mostly high-pitched.. There are signs of distention with tympany on percussion. CT scan of the abdomen showed right lower quadrant small bowel rectosigmoid anastomosis, cholecystectomy, appendectomy, hysterectomy. In addition, the showed a suggestive inflammatory change of the distal ileum, mild partial small bowel obstruction/ileus. Secondary to above the patient was admitted with a diagnosis of Crohn's disease with acute flare and associated small bowel obstruction It was associated with nausea and vomiting on the day of admission. Emesis did not contain blood or coffee-ground material. There has been a history of diarrhea. PAST MEDICAL HISTORY Illnesses: 1. Crohn's disease 2. Diabetes mellitus 3. Depression 4. Anxiety 5. Gastroesophageal reflux Allergies: 1. Codeine Medications: 1. Lantus 5 units twice a day 2. Humulin sliding scale; usually 5 units with meals. 3. Trazadone 50 mg HS Surgery: 1. Small bowel resection/large bowel resection 2. Appendectomy 3. Cholecystectomy Injuries: 1. No significant Hospitalizations: 1. For above surgery and medical problems FAMILY HISTORY Parents: 1. Father, , 70, heart disease, diabetes mellitus, renal failure, 2. Mother, , 60, cancer type unknown Siblings: 13 brothers and sisters; history is not complete Children: 1. Male, living, 45, Crohn's disease 2. Female, living, 46, healthy SOCIAL HISTORY 1. Marital Status: 2. Yarsanism: None 3. Education: High school 4. Employment History: Disabled, 1978 secondary to Crohn's disease 5. Occupational health exposures: None HABITS 1. Tobacco: 20 pack years, stopped 2011 2. Drugs: 1 ounce per week 3. Alcohol: None 4. Caffeine: 2-3 cups coffee per day, 2 cans soft drink per day HEALTH SUPERVISION Item/Test 1. Colonoscopy 1989 IMMUNIZATIONS: 1. Pneumococcal: No previous 2. Influenza: 2017 3. Tetanus: Unknown ADVANCED DIRECTIVES: 1. The patient has no advanced directives. She wishes to be placed on a FULL CODE STATUS during her hospital stay REVIEW OF SYSTEMS Remarkable for those things stated in the history of present illness and past medical history. Constitutional Denies: Fever, Sweats. Respiratory Denies: Cough, Dry. Gastrointestinal Nausea, Vomiting, Abdominal Pain, Diarrhea. Physical Exam Vital Signs / I&Os Vitals in the ED: BP: 122/82. HR: 85. RR: 18. O2 saturation: 94%. Temp: 98.5 F. General Appearance Oriented X3, Cooperative HEENT EOMI Lungs Clear to auscultation Neck Supple, No JVD Cardiovascular Normal S1 and S2, No murmurs, gallops, rubs Abdomen water tenderness and right lower quadrant. Appears to have guarding. No rebound. I'll distention with tympany on percussion. Bowel sounds are high- pitched Extremities No cyanosis, No clubbing, No edema Skin No Rashes Neurological No lateralizing signs Psych/Mental Status Mood normal, anxiety; nervous, anxious LAB Results Laboratory Tests 09/16 09/16 1015 1100 Chemistry Plasma Sodium (136 - 145 mmol/L) 141 Plasma Potassium (3.5 - 5.1 mmol/L) 3.7 Plasma Chloride (98 - 107 mmol/L) 106 CO2 (Enzymatic) (21 - 32 mmol/L) 26 BUN (7 - 18 mg/dL) 11 Creatinine (0.6 - 1.3 mg/dL) 0.9 Est GFR ( Amer) (mL/min) >60 Est GFR (Non-Af Amer) (mL/min) >60 Glucose (70 - 110 mg/dL) 125 Plasma Calcium (8.5 - 10.1 mg/dL) 8.6 Total Bilirubin (0.0 - 1.0 mg/dL) 0.5 AST (15 - 37 U/L) 20 ALT (12 - 78 U/L) 27 Alkaline Phosphatase (46 - 116 U/L) 77 Total Protein (6.4 - 8.2 g/dL) 7.5 Albumin (3.3 - 5.0 g/dL) 3.2 Amylase (25 - 115 U/L) 36 Lipase (73 - 393 U/L) 117 Hematology WBC (4.5 - 11.5 K/uL) 8.2 RBC (4.00 - 5.20 M/uL) 3.36 Hgb (12.0 - 16.0 gm/dL) 9.4 Hct (36.0 - 46.0 %) 27.9 MCV (80 - 100 fL) 83 MCH (26 - 34 pg) 28 RDW (11.6 - 14.8 %) 13.9 Neut % (Auto) (50 - 75 %) 61.7 Lymph % (Auto) (25 - 40 %) 26.6 Beltrami % (Auto) (3 - 14 %) 9.5 Eos % (Auto) (0 - 4 %) 1.9 Baso % (Auto) (0 - 2 %) 0.3 Plt Count, EDTA (150 - 400 K/uL) 329 PUBS MCHC (31 - 37 g/dL) 34 Urines Urine Color YELLOW Urine Appearance CLOUDY Urine pH (5.0 - 8.0) 6.0 Ur Specific [place] (1.010 - 1.030) 1.025 Urine Protein (NEGATIVE) TRACE Urine Ketones (NEGATIVE) NEGATIVE Urine Blood (NEGATIVE) TRACE-INTACT Urine Nitrite (NEGATIVE) NEGATIVE Urine Bilirubin (NEGATIVE) NEGATIVE Urine Urobilinogen (0.2 - 1.0 EU/dL) 0.2 Ur Leukocyte Esterase (NEGATIVE) TRACE Urine RBC (0 - 1 rbc/hpf) 0-1 Urine WBC (0 - 1 wbc/hpf) 5-10 Ur Epithelial Cells (0 - 5 EPI/hpf) 3-5 Urine Bacteria (NONE SEEN) MODERATE (2+ TO 3+) Urine Glucose (NEGATIVE) NEGATIVE Urine Comment CULTURE INDICATED Microbiology Date/Time Procedure - Status Source Growth 09/16 1100 Urine Culture - RECD URINE CC Imaging CT abdomen and pelvis with contrast 1. Findings suggestive of inflammatory changes of the distal ileum with stricturing and mild partial small-bowel obstruction/ileus, similar to prior CT scan. Findings consistent with Crohn disease. 2. NG tube with the tip in the stomach 3. Right lower quadrant small bowel and rectosigmoid anastomoses, cholecystectomy, appendectomy and hysterectomy 4. Obstipation of the distal colon X-ray abdomen 1. NG tube in the stomach 2. Postsurgical changes with nonspecific air-fluid levels. Assessment and Plan Problem List 1. Small bowel obstruction Plan As seen on CT there is a small bowel obstruction and likely ileus. Long-standing Crohn's Patient has an NGT placed Bowel rest Pain control Copious hydration. Consult with general surgery. 2. Crohn's disease of ileum Plan Has discussed long-standing Crohn's. Hospital hospitalization was in April. She has not had any concurrent treatment or therapy. Patient is here with small bowel obstruction. Patient will start on bowel rest, NGT placed Consider transitioning to mesalamine or sulfasalazine Abdominal girth. Fluid hydration. Surgical consult 3. Ileus Plan Small bowel obstruction with ileus, similar to previous admission. As discussed above, bowel rest, NGT placed. Surgical consult 4. Abdominal pain, right lower quadrant Plan Ileus with obstruction Attempt pain control. We'll give Demerol as needed. Consider steroid therapy Nothing by mouth. NG tube to suction 5. Diabetes mellitus Status Chronic Onset Date Unknown 6. Gastroesophageal reflux Status Chronic Onset Date Unknown Plan Famotidine 20 mg twice a day 7. Generalized anxiety disorder Status Chronic Onset Date Unknown Plan Patient with history of TAMERA. Consider outpatient behavioral modification. Current status: Unstable, fair Anticipated discharge date: Anticipated discharge in 3-4 days Anticipated discharge placement: Home Patient care time: Time spent in chart review, patient interview, physical exam, CPOE, and care documentation: 70 minutes Prophylaxis; Lovenox, GI, Fimetadine Visit to patient today: 2 Complexity of care: High E&M Codes Rounding: Inpt-High/[id number]
--- NOTE | 2016-09-16 15:48 | ED MED RECONCILIATION SUMMARY ---
Patient: JIGAR BANDA Medication Reconciliation Report [facility] VisitID: [id number] [address] [place] [address] 66y, F Registration Date/Time: 09/16/2016 Weight: 66.6 kg Height/Length: 66 in. BMI: 23.7 ALLERGIES: Codeine The patient's Home Medications are listed below: THE FOLLOWING MEDICATIONS NEED TO BE RECONCILED: Amitriptyline HCl Oral 50 mg, at bedtime Heart burn medication HumuLIN R Injection, sliding scale Lantus Subcutaneous (100 unit/mL) 60 Units, every AM Zoloft Oral The source(s) of the original Home Medication information: Not obtained. The following Medications were given to the patient in the Emergency Department: Zofran [IVP] IVP 4 mg, administered: 09/16/2016 10:51:00 AM IV LACTATED RINGERS IV Fluids bolus 0, then 200 mL/hr, administered: 09/16/2016 10:55:00 AM Demerol [IVP] IVP 25 mg, administered: 09/16/2016 11:20:00 AM Demerol [IVP] IVP 25 mg, administered: 09/16/2016 12:15:00 PM The following Medications were prescribed to the patient: None.
--- NOTE | 2016-09-16 15:48 | ED DISCHARGE INSTRUCTIONS ---
Patient: JIGAR BANDA General Instructions [facility] VisitID: [id number] [address] [place] [address] 66y, F Registration Date/Time: 09/16/2016 Partial small bowel obstruction (Crohn's). Crohn's disease in the small and large intestine with obstruction. INSTRUCTIONS Follow-up: Screening today revealed the patient's blood pressure to be in the pre-hypertensive range. The patient was admitted and blood pressure will be managed during the admission. (Electronically signed by Andrea Arana Dr. 09/16/2016 15:07)
--- NOTE | 2016-09-16 15:48 | ED MAR SUMMARY ---
..... Medication Administration Record [facility] [address] [place] [address] Patient: JIGAR BANDA Visit ID: [id number] 66y, F Weight: 66.6 kg Height/Length: 66 in BMI: 23.7 ALLERGIES: Codeine Given 10:51 09/16/2016 Stephen Downs R.N. Medication Administered: ZOFRAN [IVP] (ONDANSETRON HCL), Dose: 4 mg IVP over 2 minute(s), Site: #1 left AC. Medication Ordered: Zofran IV 4 mg (NOW). Start 10:55 09/16/2016 Stephen Downs R.N., Continued Upon Disposition 15:30 09/16/2016 Stephen Downs R.N. Medication Administered: IV LACTATED RINGERS, Dose: IV Fluids over 8 hour(s), Rate: 200 mL/hr, Dispensed: 1000 mL bag, Site: #1 left AC. Medication Ordered: IV Lactated Ringers : initial bolus none -, then 200 mL/hr for x1 (NOW). Given 11:20 09/16/2016 Stephen Downs R.N. Medication Administered: DEMEROL [IVP] (MEPERIDINE HCL), Dose: 25 mg IVP over 2 minute(s), Site: #1 left AC. Medication Ordered: Demerol IV 25 mg (HIGH ALERT MEDICATION, NOW). Given 12:15 09/16/2016 Stephen Downs R.N. Medication Administered: DEMEROL [IVP] (MEPERIDINE HCL), Dose: 25 mg IVP over 2 minute(s), Site: #1 left AC. Medication Ordered: Demerol IV 25 mg (HIGH ALERT MEDICATION, NOW).
--- NOTE | 2016-09-16 15:48 | ED MED RECONCILIATION SUMMARY ---
Patient: JIGAR BANDA Medication Reconciliation Report [facility] VisitID: [id number] [address] [place] [address] 66y, F Registration Date/Time: 09/16/2016 Weight: 66.6 kg Height/Length: 66 in. BMI: 23.7 ALLERGIES: Codeine The patient's Home Medications are listed below: THE FOLLOWING MEDICATIONS NEED TO BE RECONCILED: Amitriptyline HCl Oral 50 mg, at bedtime Heart burn medication HumuLIN R Injection, sliding scale Lantus Subcutaneous (100 unit/mL) 60 Units, every AM Zoloft Oral The source(s) of the original Home Medication information: Not obtained. The following Medications were given to the patient in the Emergency Department: Zofran [IVP] IVP 4 mg, administered: 09/16/2016 10:51:00 AM IV LACTATED RINGERS IV Fluids bolus 0, then 200 mL/hr, administered: 09/16/2016 10:55:00 AM Demerol [IVP] IVP 25 mg, administered: 09/16/2016 11:20:00 AM Demerol [IVP] IVP 25 mg, administered: 09/16/2016 12:15:00 PM The following Medications were prescribed to the patient: None.
--- NOTE | 2016-09-16 15:48 | ED MAR SUMMARY ---
..... Medication Administration Record [facility] [address] [place] [address] Patient: JIGAR BANDA Visit ID: [id number] 66y, F Weight: 66.6 kg Height/Length: 66 in BMI: 23.7 ALLERGIES: Codeine Given 10:51 09/16/2016 Stephen Downs R.N. Medication Administered: ZOFRAN [IVP] (ONDANSETRON HCL), Dose: 4 mg IVP over 2 minute(s), Site: #1 left AC. Medication Ordered: Zofran IV 4 mg (NOW). Start 10:55 09/16/2016 Stephen Downs R.N., Continued Upon Disposition 15:30 09/16/2016 Stephen Downs R.N. Medication Administered: IV LACTATED RINGERS, Dose: IV Fluids over 8 hour(s), Rate: 200 mL/hr, Dispensed: 1000 mL bag, Site: #1 left AC. Medication Ordered: IV Lactated Ringers : initial bolus none -, then 200 mL/hr for x1 (NOW). Given 11:20 09/16/2016 Stephen Downs R.N. Medication Administered: DEMEROL [IVP] (MEPERIDINE HCL), Dose: 25 mg IVP over 2 minute(s), Site: #1 left AC. Medication Ordered: Demerol IV 25 mg (HIGH ALERT MEDICATION, NOW). Given 12:15 09/16/2016 Stephen Downs R.N. Medication Administered: DEMEROL [IVP] (MEPERIDINE HCL), Dose: 25 mg IVP over 2 minute(s), Site: #1 left AC. Medication Ordered: Demerol IV 25 mg (HIGH ALERT MEDICATION, NOW).
--- NOTE | 2016-09-16 15:48 | ED DISCHARGE INSTRUCTIONS ---
Patient: JIGAR BANDA General Instructions [facility] VisitID: [id number] [address] [address] 66y, F Registration Date/Time: 09/16/2016 Partial small bowel obstruction (Crohn's). Crohn's disease in the small and large intestine with obstruction. INSTRUCTIONS Follow-up: Screening today revealed the patient's blood pressure to be in the pre-hypertensive range. The patient was admitted and blood pressure will be managed during the admission. (Electronically signed by Andrea Arana Dr. 09/16/2016 15:07)
[2016-09-16 16:06] VITALS: BP 156/72
[2016-09-16 18:31] VITALS: BP 111/52
[2016-09-16 22:41] VITALS: BP 134/69
[2016-09-17 02:02] VITALS: BP 148/82
[2016-09-17 06:56] VITALS: BP 165/86; BP 169/95
--- NOTE | 2016-09-17 08:41 | DIAGNOSTIC IMAGING REPORT ---
PROCEDURE: XR ABDOMEN 1 VIEW UPRIGHT INDICATION: Follow-up obstruction TECHNIQUE: Single view upright abdomen. COMPARISON: 09/16/2016 FINDINGS: No free intraperitoneal air. Nasogastric tube in position within the stomach. Surgical clips in the gallbladder fossa. Nondilated bowel loops with scattered air-fluid levels, similar compared to the previous study. Moderate amount of retained stool in the left abdomen. Surgical staple ring in the low pelvis. No new suspicious mass effect. Intact osseous structures. IMPRESSION: 1. NG tube in place. 2. Little change to nonspecific air fluid levels scattered throughout the bowel. 3. Surgical changes in the abdomen and pelvis as described.
[2016-09-17 11:30] VITALS: BP 152/71
--- NOTE | 2016-09-17 14:16 | Progress Note ---
Subjective General Patient seen and examined. Patient is still having output from the NG tube. Patient has adequate bowel sounds however no return of bowel function. We'll continue with NG tube suction and start mesalamine. the patient does not see any progress by tomorrow we'll consult surgery for possible surgical intervention. Constitutional Denies: Fever, Chills, Sweats, Weakness, Malaise, Other. Eyes Denies: Pain, Vision Change, Conjunctival Inflammation, Eyelid Inflammation, Redness, Other. Respiratory Denies: Cough, Dry, SOB w/exertion, Wheezing, Hemoptysis, Pleuritic Pain, Sputum , Other. Cardiovascular Denies: Chest Pain, Palpitations, Orthopnea, PND, Edema, Light-headedness, Other. Gastrointestinal Nausea, Vomiting, Abdominal Pain. Denies: Diarrhea, Constipation, Melena, Hematochezia, Other. Genitourinary Denies: Dysuria, Frequency, Incontinence, Hematuria, Retention, Other. Musculoskeletal Denies: Neck Pain, Shoulder Pain, Arm Pain, Back Pain, Hand Pain, Leg Pain, Foot Pain, Other. Skin Denies: Rash, Lesions, Jaundice, Bruising, Other. Neurological Denies: Weakness, Numbness, Incoordination, Change in speech, Confusion, Seizures, Other. Physical Exam Vital Signs / I&Os Vital Signs Date Time Temp Pulse Resp B/P Pulse O2 O2 Flow FiO2 Ox Delivery Rate 09/17 1130 98.8 94 18 152/71 100 Room Air 09/17 0800 Room Air 0.0 09/17 0656 98.6 85 16 165/86 98 Room Air 09/17 0202 98.2 78 16 148/82 96 Room Air 09/16 2332 Room Air 09/16 2241 98.4 80 16 134/69 96 Room Air 09/16 1831 98.1 85 16 111/52 97 Room Air 09/16 1615 Room Air 0.0 09/16 1606 98.1 87 16 156/72 97 Room Air I&O 09/16 0800 09/16 1600 09/17 0000 Intake Total 0 Output Total 1100 Balance -1100 General Appearance Alert, Oriented X3, No acute distress HEENT PERRLA, Moist mucous membranes Lungs Clear to auscultation Neck No JVD, No masses, No lymphadenopathy Cardiovascular Regular rate and rhythm, No murmurs, gallops, rubs Abdomen Soft, No tenderness, No guarding Extremities No edema, Normal pulses, No tenderness Skin No Breakdown, No Significant Lesions Neurological Normal gait, Normal tone, Cranial nerves intact, No lateralizing signs Psych/Mental Status Mood normal LAB Results Laboratory Tests 09/17 09/17 0546 0539 Chemistry Plasma Sodium (136 - 145 mmol/L) 143 Plasma Potassium (3.5 - 5.1 mmol/L) 4.1 Plasma Chloride (98 - 107 mmol/L) 107 CO2 (Enzymatic) (21 - 32 mmol/L) 27 BUN (7 - 18 mg/dL) 9 Creatinine (0.6 - 1.3 mg/dL) 0.8 Est GFR ( Amer) (mL/min) >60 Est GFR (Non-Af Amer) (mL/min) >60 Glucose (70 - 110 mg/dL) 101 Hemoglobin A1c % (4.5 - 6.2 %) 7.8 Plasma Calcium (8.5 - 10.1 mg/dL) 8.1 Plasma Magnesium (1.8 - 2.4 mg/dL) 1.4 Total Bilirubin (0.0 - 1.0 mg/dL) 0.5 AST (15 - 37 U/L) 21 ALT (12 - 78 U/L) 23 Alkaline Phosphatase (46 - 116 U/L) 68 Total Protein (6.4 - 8.2 g/dL) 6.4 Albumin (3.3 - 5.0 g/dL) 2.8 Hematology WBC (4.5 - 11.5 K/uL) 7.3 RBC (4.00 - 5.20 M/uL) 3.39 Hgb (12.0 - 16.0 gm/dL) 9.2 Hct (36.0 - 46.0 %) 28.7 MCV (80 - 100 fL) 85 MCH (26 - 34 pg) 27 RDW (11.6 - 14.8 %) 13.6 Gran % (53 - 90) 64.1 Lymph % (Auto) (25 - 40 %) 32.1 [place] % (Auto) (3 - 14 %) 3.8 Plt Count, EDTA (150 - 400 K/uL) 300 PUBS MCHC (31 - 37 g/dL) 32 Assessment and Plan Problem List 1. Small bowel obstruction Plan Will continue with NG tube drainage Once output decreases the patient regains bowel function will DC NG tube Patient will be kept nothing by mouth until then Patient will be on aggressive IV hydration If no resolution by tomorrow we'll consult surgery 2. Generalized anxiety disorder Status Chronic Onset Date Unknown Plan Established history of anxiety disorder Currently patient has no anxiety We'll continue monitor 3. Crohn's disease of ileum Plan Patient has an established history of Crohn's disease Patient has not been on consistent treatment since 2003 It seems to be in all the providers the patient is very poor follow-up Patient has been dealing with Crohn-like flares approximately once a week for the past 13 years We'll restart mesalamine twice a day We'll to see if this helps with Crohn flareup If no response is seen by tomorrow we will consult surgery for possible surgical intervention 4. Ileus Plan Ileus secondary to Crohn's flare We'll look to start mesalamine twice a day today
[2016-09-17 14:53] VITALS: BP 149/63
--- NOTE | 2016-09-17 17:13 | CONSULTATION REPORT ---
DATE OF CONSULTATION: 09/17/2016 CHIEF COMPLAINT: 1. Abdominal pain and vomiting. HISTORY OF PRESENT ILLNESS: The patient is a 66-year-old woman who presented today with a history of abdominal pain and vomiting. She reports this pain was going on for a few days. She was admitted to the hospital in 04/2016 with similar problems. This patient has a known history of Crohn disease as well as multiple previous abdominal surgeries. On this occasion a nasogastric tube was placed and the patient feels perhaps a bit better with pain medication. MEDICAL/SURGICAL HISTORY: Past medical history includes GERD, depression, diabetes, anxiety, liver cancer. She has also had cholecystectomy, surgery for intestinal blockage on 2 occasions, hysterectomy, appendectomy. She reports a previous colonoscopy in 1989. Her most recent abdominal surgery the patient reports is more than 10 years ago done at [facility]. MEDICATIONS: CURRENT OUTPATIENT MEDICATIONS: 1. Amitriptyline at bedtime. 2. Trazodone at bedtime. 3. Insulin 3 times a day. 4. Lantus insulin. ALLERGIES: 1. TO CODEINE. SOCIAL HISTORY: The patient is . She is disabled. She quit smoking in 2011. She rarely takes alcohol. FAMILY HISTORY: Father of diabetes and renal failure. Mother some type of cancer. The patient has 2 living children and her son who is 46 years old has Crohn disease. REVIEW OF SYSTEMS: A multipoint review of systems was obtained by a questionnaire. This is pertinent for the current problems with weight loss, fatigue and pain. She reports poor urinary stream, nausea, vomiting, heartburn. She has had blood in the stool, diarrhea, constipation, abdominal pain, joint problems, headaches, diabetes, depression, nervousness. PHYSICAL EXAMINATION: VITAL SIGNS: On physical examination today her temperature is 98.8, pulse of 94, respirations 18, blood pressure 152/71, 100% room air oxygen saturation. GENERAL: The patient is alert and cooperative, though her history is rather vague at times. HEENT: Her ears and nose demonstrated no gross external lesions. Eyes are equal. There is no icterus. NECK: Without palpable masses or thyromegaly. There is no bruit in the carotids. CHEST: Was clear to auscultation. HEART: Is regular without murmur. ABDOMEN EXAMINATION: Revealed a long healed midline scar. The abdomen is nondistended. There is tenderness to palpation in the right lower quadrant with localized involuntary guarding. Bowel sounds are active. The patient's abdomen was nontympanitic. EXTREMITIES: Are symmetric. The patient moves without restriction. LAB/IMAGING: Lab tests showed a normal white count of 7.3, hemoglobin and hematocrit of 9.3 and 28.7. Electrolytes were normal. Her magnesium is diminished at 1.4, hemoglobin A1c was 7.8. Urinalysis demonstrated 5-10 white cells, moderate bacteria. The abdominal and pelvic CT showed inflammatory changes of the distal ileum with stricturing and partial small-bowel obstruction similar to previous CT scan of April. These findings were felt to be consistent with Crohn disease. There is an NG in place. She had a report states that there is right lower quadrant small bowel and rectosigmoid anastomosis and that she is also status post cholecystectomy, appendectomy, and hysterectomy. There is obstipation of the distal colon seen. IMPRESSION: 1. Crohn disease with active terminal ileitis. 2. Colonic obstipation. 3. Status post previous intestinal rearrangement. PLAN: [facility] to determine what actually was done at that point. Additionally, this patient might be a candidate for steroid boluses. I favor giving her some enemas to try to clear the rectum of stool, so that we have no distal areas of back pressure or obstruction. There is no urgent need for surgery at this point.
[2016-09-17 18:15] VITALS: BP 139/92
[2016-09-17 22:43] VITALS: BP 159/80
[2016-09-18] VITALS (8 sets, daily range): BP systolic 140–185; BP diastolic 70–99
--- NOTE | 2016-09-18 14:32 | Progress Note ---
Subjective General Patient seen and examined. Patient is still having persistent vomiting. Patient has persistent NG tube output as well. Chest x-ray was obtained yesterday which revealed NG tube in correct position. Currently patient is on IV pulse steroids in order to combat her Crohn's disease. Surgery has seen the patient and currently recommend steroids and surgery is not really an option at the point Constitutional Denies: Fever, Chills, Sweats, Weakness, Malaise, Other. Eyes Denies: Pain, Vision Change, Conjunctival Inflammation, Eyelid Inflammation, Redness, Other. ENT Denies: Ear Pain, Ear Discharge, Nose Pain, Nasal Discharge, Nasal Congestion, Mouth Pain, Mouth Swelling, Throat Pain, Throat Swelling, Other. Cardiovascular Denies: Chest Pain, Palpitations, Orthopnea, PND, Edema, Light-headedness, Other. Gastrointestinal Denies: Nausea, Vomiting, Abdominal Pain, Diarrhea, Constipation, Melena, Hematochezia, Other. Genitourinary Denies: Dysuria, Frequency, Incontinence, Hematuria, Retention, Other. Musculoskeletal Denies: Neck Pain, Shoulder Pain, Arm Pain, Back Pain, Hand Pain, Leg Pain, Foot Pain, Other. Skin Denies: Rash, Lesions, Jaundice, Bruising, Other. Neurological Denies: Weakness, Numbness, Incoordination, Change in speech, Confusion, Seizures, Other. Physical Exam Vital Signs / I&Os Vital Signs Date Time Temp Pulse Resp B/P Pulse O2 O2 Flow FiO2 Ox Delivery Rate 09/18 1406 98.2 105 20 169/75 96 Room Air 0.0 09/18 1029 171/94 09/18 1010 98.2 94 20 170/79 96 Room Air 0.0 09/18 0759 Room Air 0.0 09/18 0628 98.1 94 18 151/99 99 Room Air 0.0 09/18 0420 98.1 93 16 140/70 92 Room Air 09/17 2243 98.2 95 20 159/80 96 Room Air 09/17 2050 Room Air 09/17 1815 99.1 93 18 139/92 94 Room Air 09/17 1453 99.3 95 18 149/63 99 Room Air I&O 09/17 0800 09/17 1600 09/18 0000 Intake Total 1101 910 Output Total 790 1220 Balance 311 -310 General Appearance Alert, Oriented X3, No acute distress HEENT Atraumatic, PERRLA, Moist mucous membranes Lungs Clear to auscultation Neck No JVD, No masses, No lymphadenopathy Cardiovascular Regular rate and rhythm, Normal S1 and S2, No murmurs, gallops, rubs Abdomen Soft, No tenderness, No rebound Extremities No edema, Normal pulses, No tenderness, Saima's sign negative Skin No Breakdown, No Significant Lesions Neurological Normal speech, Normal tone, Cranial nerves intact, No lateralizing signs Psych/Mental Status Mood normal LAB Results Laboratory Tests 09/18 0505 Chemistry Plasma Sodium (136 - 145 mmol/L) 141 Plasma Potassium (3.5 - 5.1 mmol/L) 3.1 Plasma Chloride (98 - 107 mmol/L) 102 CO2 (Enzymatic) (21 - 32 mmol/L) 22 BUN (7 - 18 mg/dL) 9 Creatinine (0.6 - 1.3 mg/dL) 0.6 Est GFR ( Amer) (mL/min) >60 Est GFR (Non-Af Amer) (mL/min) >60 Glucose (70 - 110 mg/dL) 115 Plasma Calcium (8.5 - 10.1 mg/dL) 7.9 Total Bilirubin (0.0 - 1.0 mg/dL) 0.4 AST (15 - 37 U/L) 19 ALT (12 - 78 U/L) 22 Alkaline Phosphatase (46 - 116 U/L) 67 Total Protein (6.4 - 8.2 g/dL) 6.0 Albumin (3.3 - 5.0 g/dL) 2.7 Hematology WBC (4.5 - 11.5 K/uL) 7.2 RBC (4.00 - 5.20 M/uL) 3.36 Hgb (12.0 - 16.0 gm/dL) 9.5 Hct (36.0 - 46.0 %) 27.8 MCV (80 - 100 fL) 83 MCH (26 - 34 pg) 28 RDW (11.6 - 14.8 %) 13.3 Neut % (Auto) (50 - 75 %) 70.1 Lymph % (Auto) (25 - 40 %) 23.1 [place] % (Auto) (3 - 14 %) 6.5 Eos % (Auto) (0 - 4 %) 0.1 Baso % (Auto) (0 - 2 %) 0.2 Plt Count, EDTA (150 - 400 K/uL) 329 PUBS MCHC (31 - 37 g/dL) 34 Assessment and Plan Problem List 1. Crohn's disease of ileum Plan Currently patient is a Crohn's flare after being noncompliant with medication As a result patient has a small bowel shock secondary to increased inflammation Will provide patient with methylprednisone in order to combat Crohn's exacerbation If patient does not seem to improve in 2 days we'll reconsult surgery We'll keep patient nothing by mouth with NG tube B 2. Ileus Plan Secondary to Crohn's flare We will continue with NG tube suction We'll monitor for emesis If emesis continues will consider repeat x-ray 3. Diabetes mellitus Status Chronic Onset Date Unknown Plan Patient has an established history of diabetes mellitus currently patient's blood sugars are well controlled on by mouth We'll hold off insulin for the time being 4. Generalized anxiety disorder Status Chronic Onset Date Unknown Plan Established history of general anxiety disorder We'll continue with when necessary Ativan if needed
[2016-09-19] VITALS (8 sets, daily range): BP systolic 152–187; BP diastolic 79–91
--- NOTE | 2016-09-19 07:21 | Progress Note ---
Subjective General Pt. is still sore with bilious NG output. Records not available from [facility] and pt. confirms that is where her surgery was but more than 10 years ago. Pt. now getting a prednisone pulse. Physical Exam Vital Signs / I&Os Vital Signs Date Time Temp Pulse Resp B/P Pulse O2 O2 Flow FiO2 Ox Delivery Rate 09/19 0648 98.2 87 20 159/79 98 Room Air 0.0 09/19 0208 98.4 96 18 153/81 97 Room Air 09/19 0126 0.0 09/18 2227 98.1 94 16 185/93 99 Room Air 09/18 1816 98.1 89 20 147/72 99 Room Air 09/18 1430 97.9 95 20 144/74 96 Room Air 09/18 1406 98.2 105 20 169/75 96 Room Air 0.0 09/18 1029 171/94 09/18 1010 98.2 94 20 170/79 96 Room Air 0.0 09/18 0759 Room Air 0.0 I&O 09/18 0800 09/18 1600 09/19 0000 Intake Total 1946 100 Output Total 968 527 2384 Balance 3981 -524 -1120 General Appearance Alert, Oriented X3, Cooperative, No acute distress Abdomen Normal bowel sounds, tender toward RLQ. Assessment and Plan Problem List 1. Crohn's disease of ileum Plan per int. medicine plans, pt. could be a surgical candidate down the road for resection of terminal ileum for focal refractory Crohns with SBO, but has refused surgery in the past.
--- NOTE | 2016-09-19 07:21 | Progress Note ---
Subjective General Pt. is still sore with bilious NG output. Records not available from [facility] and pt. confirms that is where her surgery was but more than 10 years ago. Pt. now getting a prednisone pulse. Physical Exam Vital Signs / I&Os Vital Signs Date Time Temp Pulse Resp B/P Pulse O2 O2 Flow FiO2 Ox Delivery Rate 09/19 0648 98.2 87 20 159/79 98 Room Air 0.0 09/19 0208 98.4 96 18 153/81 97 Room Air 09/19 0126 0.0 09/18 2227 98.1 94 16 185/93 99 Room Air 09/18 1816 98.1 89 20 147/72 99 Room Air 09/18 1430 97.9 95 20 144/74 96 Room Air 09/18 1406 98.2 105 20 169/75 96 Room Air 0.0 09/18 1029 171/94 09/18 1010 98.2 94 20 170/79 96 Room Air 0.0 09/18 0759 Room Air 0.0 I&O 09/18 0800 09/18 1600 09/19 0000 Intake Total 1946 100 Output Total 470 038 1776 Balance 7171 -908 -1124 General Appearance Alert, Oriented X3, Cooperative, No acute distress Abdomen Normal bowel sounds, tender toward RLQ. Assessment and Plan Problem List 1. Crohn's disease of ileum Plan per int. medicine plans, pt. could be a surgical candidate down the road for resection of terminal ileum for focal refractory Crohns with SBO, but has refused surgery in the past.
[2016-09-20 02:25] VITALS: BP 164/83
[2016-09-20 06:39] VITALS: BP 161/78
[2016-09-20 11:01] VITALS: BP 170/77
[2016-09-20 12:49] VITALS: BP 137/77
--- NOTE | 2016-09-20 15:20 | Progress Note ---
Subjective General Patient seen and examined this a.m. Patient is still having abdominal pain, inability to have bowel movements/pass gas. Patient is otherwise free of vomiting. We'll have the PICC line placed to have the patient started on TPN. Constitutional Weakness, Malaise. Denies: Fever, Chills, Sweats, Other. Eyes Denies: Pain, Vision Change, Conjunctival Inflammation, Eyelid Inflammation, Redness, Other. ENT Denies: Ear Pain, Ear Discharge, Nose Pain, Nasal Discharge, Nasal Congestion, Mouth Pain, Mouth Swelling, Throat Pain, Throat Swelling, Other. Respiratory Denies: Cough, Dry, SOB w/exertion, Wheezing, Hemoptysis, Pleuritic Pain, Sputum , Other. Cardiovascular Denies: Chest Pain, Palpitations, Orthopnea, PND, Edema, Light-headedness, Other. Gastrointestinal Denies: Nausea, Vomiting, Abdominal Pain, Diarrhea, Constipation, Melena, Hematochezia, Other. Genitourinary Denies: Dysuria, Frequency, Incontinence, Hematuria, Retention, Other. Musculoskeletal Denies: Neck Pain, Shoulder Pain, Arm Pain, Back Pain, Hand Pain, Leg Pain, Foot Pain, Other. Skin Denies: Rash, Lesions, Jaundice, Bruising, Other. Neurological Denies: Weakness, Numbness, Incoordination, Change in speech, Confusion, Seizures, Other. Physical Exam Vital Signs / I&Os Vital Signs Date Time Temp Pulse Resp B/P Pulse O2 O2 Flow FiO2 Ox Delivery Rate 09/20 1249 137/77 09/20 1101 98.4 93 18 170/77 99 Room Air 09/20 0639 98.1 88 16 161/78 99 Room Air 09/20 0225 98.6 91 18 164/83 97 Room Air 0.0 09/19 2331 181/90 09/19 2324 181/90 09/19 2313 98.2 91 19 183/86 97 Room Air 09/19 2310 Room Air 09/19 181 98.4 103 20 187/91 99 Room Air I&O 09/19 0800 09/19 1600 09/20 0000 Intake Total 2679 1654 Output Total 250 950 700 Balance 2429 -950 954 General Appearance Alert, Oriented X3, No acute distress HEENT PERRLA, EOMI Lungs Clear to auscultation, Normal air movement Neck No JVD, No masses Cardiovascular Regular rate and rhythm, Normal S1 and S2, No murmurs, gallops, rubs Abdomen Soft, No tenderness Extremities No edema, Normal pulses, No tenderness Skin No Breakdown Neurological Normal tone, Cranial nerves intact, No lateralizing signs Psych/Mental Status Mood normal LAB Results Laboratory Tests 09/20 0505 Chemistry Plasma Sodium (136 - 145 mmol/L) 140 Plasma Potassium (3.5 - 5.1 mmol/L) 3.7 Plasma Chloride (98 - 107 mmol/L) 105 CO2 (Enzymatic) (21 - 32 mmol/L) 23 BUN (7 - 18 mg/dL) 9 Creatinine (0.6 - 1.3 mg/dL) 0.6 Est GFR ( Amer) (mL/min) >60 Est GFR (Non-Af Amer) (mL/min) >60 Glucose (70 - 110 mg/dL) 126 Plasma Calcium (8.5 - 10.1 mg/dL) 8.0 Total Bilirubin (0.0 - 1.0 mg/dL) 0.4 AST (15 - 37 U/L) 31 ALT (12 - 78 U/L) 31 Alkaline Phosphatase (46 - 116 U/L) 59 Total Protein (6.4 - 8.2 g/dL) 6.2 Albumin (3.3 - 5.0 g/dL) 2.9 Hematology WBC (4.5 - 11.5 K/uL) 8.1 RBC (4.00 - 5.20 M/uL) 3.59 Hgb (12.0 - 16.0 gm/dL) 10.1 Hct (36.0 - 46.0 %) 29.9 MCV (80 - 100 fL) 83 MCH (26 - 34 pg) 28 RDW (11.6 - 14.8 %) 13.8 Neut % (Auto) (50 - 75 %) 69.9 Lymph % (Auto) (25 - 40 %) 23.6 [place] % (Auto) (3 - 14 %) 6.3 Eos % (Auto) (0 - 4 %) 0 Baso % (Auto) (0 - 2 %) 0.2 Plt Count, EDTA (150 - 400 K/uL) 362 PUBS MCHC (31 - 37 g/dL) 34 Assessment and Plan Problem List 1. Small bowel obstruction Plan Patient has a small bowel obstruction secondary to Crohn's flare Currently patient is unable to pass gas or have bowel movements secondary obstruction Until Crohn's flare is resolved patient will not open up Currently surgery is not warranted however surgery has recently sold the patient who recommended that the patient continued with Crohn's treatment on pole obstruction is resolved 2. Crohn's disease of ileum Plan Patient is a established history of Crohn's diagnosed She has never been on consistent treatment for any period of time Patient was placed on methylprednisone however this was not doing anything for her symptoms therefore she was placed on mesalamine as well And We'll await for recurrent return of bowel function, resultant of abdominal pain, inability to tolerate a diet Given patient's recent history it is unlikely the patient will be able to eat tomorrow, therefore will start TPN 3. Generalized anxiety disorder Status Chronic Onset Date Unknown Plan Patient has general anxiety disorder which is causing her a fair amount of anxiety Patient is responsive to 4. Diabetes mellitus Status Chronic Onset Date Unknown Plan Patient has established history of diabetes mellitus type 2 Blood sugars have been very well-controlled We'll continue with current treatment 5. Gastroesophageal reflux Status Chronic Onset Date Unknown
--- NOTE | 2016-09-20 16:41 | DIAGNOSTIC IMAGING REPORT ---
PROCEDURE: XR CHEST 1 VIEW INDICATION: PICC LINE PLACEMENT TECHNIQUE: Single view chest. 1623 hours COMPARISON: 05/17/2016 FINDINGS: New right-sided PICC line is present. The tip is at the cavoatrial junction. The cardiomediastinal contour is normal given slight patient rotation. No central venous congestion. Visible lung ugarte are clear. Postsurgical and degenerative changes at the right glenohumeral joint and acromioclavicular joint. IMPRESSION: 1. Adequate position of right-sided PICC line. Called to Yuki from the PICC line team. 2. No acute cardiopulmonary disease. 3. Chronic degenerative and postoperative right shoulder changes.
[2016-09-20 18:10] VITALS: BP 143/91
[2016-09-20 23:01] VITALS: BP 139/78
[2016-09-21 03:11] VITALS: BP 149/79
[2016-09-21 06:52] VITALS: BP 164/84
--- NOTE | 2016-09-21 07:25 | DIAGNOSTIC IMAGING REPORT ---
PROCEDURE: XR ABDOMEN 1 VIEW UPRIGHT INDICATION: Follow up Crohn's. SBO TECHNIQUE: AP upright view. COMPARISON: Compared to abdominal radiograph on 09/17/2016, and CT abdomen and pelvis (09/16/2016). FINDINGS: NG tube has been removed. Bowel pattern is within normal limits with a few air-fluid levels in the right colon. Small bowel pattern is normal. No evidence of free air. Surgical clips in right upper quadrant overlying the central lower pelvis. Soft tissues and osseous structures are normal. IMPRESSION: 1. Mild improvement with resolving bowel obstruction.
[2016-09-21 11:24] VITALS: BP 171/80
--- NOTE | 2016-09-21 14:11 | Progress Note ---
Subjective General Patient seen and examined. Patient is doing well without any complaints overnight. Patient still has persistent abdominal pain and has not have return of bowel function. Patient is otherwise stable without any other complaints. We'll start TPN today Constitutional Weakness. Denies: Fever, Chills, Sweats, Malaise, Other. Eyes Denies: Pain, Vision Change, Conjunctival Inflammation, Eyelid Inflammation, Redness, Other. ENT Denies: Ear Pain, Ear Discharge, Nose Pain, Nasal Discharge, Nasal Congestion, Mouth Pain, Mouth Swelling, Throat Pain, Throat Swelling, Other. Respiratory Denies: Cough, Dry, SOB w/exertion, Wheezing, Hemoptysis, Pleuritic Pain, Sputum , Other. Cardiovascular Denies: Chest Pain, Palpitations, Orthopnea, PND, Edema, Light-headedness, Other. Gastrointestinal Abdominal Pain. Denies: Nausea, Vomiting, Diarrhea, Constipation, Melena, Hematochezia, Other. Genitourinary Denies: Dysuria, Frequency, Incontinence, Hematuria, Retention, Other. Musculoskeletal Denies: Neck Pain, Shoulder Pain, Arm Pain, Back Pain, Hand Pain, Leg Pain, Foot Pain, Other. Neurological Denies: Weakness, Numbness, Incoordination, Change in speech, Confusion, Seizures, Other. Physical Exam Vital Signs / I&Os Vital Signs Date Time Temp Pulse Resp B/P Pulse O2 O2 Flow FiO2 Ox Delivery Rate 09/21 1124 98.2 86 18 171/80 100 Room Air 09/21 0652 98.4 79 18 164/84 100 Room Air 09/21 0311 97.9 72 15 149/79 99 Room Air 09/21 0149 Room Air 09/20 2301 98.4 76 19 139/78 97 Room Air 09/20 1810 98.1 80 18 143/91 99 Room Air 09/20 1700 Room Air 0.0 I&O 09/20 0800 09/20 1600 09/21 0000 Intake Total 0 1649 Output Total 980 900 600 Balance -980 749 -600 General Appearance Alert, Cooperative, No acute distress HEENT Atraumatic, PERRLA, Moist mucous membranes Lungs Clear to auscultation Neck No JVD, No masses, No lymphadenopathy Cardiovascular Regular rate and rhythm, Normal S1 and S2, No murmurs, gallops, rubs Abdomen Soft, No tenderness, No guarding Extremities No edema, Normal pulses, No tenderness Skin No Breakdown Neurological Normal tone, Sensation intact, Cranial nerves intact, No lateralizing signs Psych/Mental Status Mood normal Assessment and Plan Problem List 1. Crohn's disease of ileum Plan Patient has a known history of Crohn's disease Patient has not been on consistent treatment for any period of time Currently patient is not responsive to methylprednisone mesalamine was added as well Patient is still having inflammation which is seen in that she is no return of bowel function We'll continue with resolving and give 2 days before resorting to another agent for possible transfer to facility with a call center trainer 2. Abdominal pain, right lower quadrant Plan Patient has persistent pain Patient's pain is controlled by morphine We'll continue with current regimen 3. Diabetes mellitus Status Chronic Onset Date Unknown Plan Patient is a known history of diabetes mellitus While nothing by mouth patient's blood sugars have been relatively well- controlled Given the patient's starting TPN will start with Lantus 5 units every morning 4. Generalized anxiety disorder Status Chronic Onset Date Unknown Plan Patient has baseline anxiety Patient is responsive to Ativan We'll continue with current regimen 5. Small bowel obstruction Plan Given persistent small bowel obstruction will start TPN infusion TPN formulation as per pharmacy PICC line placed We'll begin infusion goal rate 65 for TPN 85 mL of fluid altogether
[2016-09-21 14:20] VITALS: BP 170/86
[2016-09-21 18:15] VITALS: BP 174/78
[2016-09-21 22:08] VITALS: BP 164/71
[2016-09-22 02:21] VITALS: BP 156/80
--- NOTE | 2016-09-22 05:14 | Progress Note ---
Subjective General Note Date: September 22, 2016 Admission Date: September 16, 2016 Hospital Day: 7 PCP: None Status: Inpatient, ACU Advanced Directive: FULL CODE Room: 211 Admission History: The patient is a 66-year-old female with a significant past medical history of Crohn's disease, diabetes mellitus, depression, generalized anxiety disorder, gastroesophageal reflux, who presented to [facility] emergency room on the day of admission secondary to complaints of abdominal pain. [facility] ER evaluation was consistent with Crohn's disease flare with associated small bowel obstruction. Secondary to the above, the patient was admitted by Saul Macedo M.D. for further evaluation and treatment. For other history present illness, past medical history, family history, social history, review of systems, and admission physical examination please see the patient's history and physical examination and ER visit note in the patient's medical record. Subjective: The patient states she is doing well today. Persistent abdominal pain but improved. No pruritus. No BM. Patient requests: Solid food and discharge as soon as possible Medications and Allergies Medications Current Medications Sig/[place] Start time Last Medication Dose Route Stop Time Status Admin Insulin Human Lispro See Dose Q6HR 09/22 0024 AC 09/22 Insts (1) SC 0205 Fat Emulsion 250 ML Q24H 09/21 1400 AC 09/21 Intravenous IV 1321 Amino Acids/ 1,000 ML .BY DURATION 09/21 1100 AC 09/22 Electrolytes/Dextrose IV 0347 Multivitamins 10 ML .BY DURATION 09/21 1100 AC 09/21 Trace Metals 1 ML IV 1125 Amino Acids/ 1,000 ML Electrolytes/Dextrose Dextrose/Water 500 ML ASDIRECTED PRN 09/21 0945 IV Total Parenteral See Dose .[PER PHARMACY] 09/21 0945 Nutrition Insts (2) IV Mesalamine 800 MG TID 09/20 1100 09/21 PO 2200 Benzocaine/Butamben/ See Dose PRN PRN 09/18 1800 09/18 Tetracaine HCl Insts (3) TOP 2011 Promethazine HCl 12.5 MG Q4H PRN 09/18 1215 AC 09/21 IV 0937 Sodium Chloride 1,000 ML ASDIRECTED 09/18 0715 AC 09/20 IV 2239 Methylprednisolone 40 MG Q12H 09/17 1900 AC 09/21 Sodium Succinate IV 1838 Morphine Sulfate See Dose Q1H PRN 09/17 1900 AC 09/22 Insts (4) IV 0347 Ondansetron HCl 4 MG Q4H PRN 09/17 1615 AC 09/21 IV 0516 Insulin Glargine 5 UNITS DAILY 09/17 0900 DA 09/17 SC 0812 Lorazepam 1 MG Q6H PRN 09/16 2115 AC 09/20 IV 1937 Lidocaine 15 ML Q4H PRN 09/16 2100 AC 09/17 PO 0436 Enoxaparin Sodium 40 MG QAM 09/16 1431 AC 09/21 SC 0901 Acetaminophen 650 MG Q6H PRN 09/16 1430 AC PO Zolpidem Tartrate 5 MG QHS PRN 09/16 1430 AC PO Famotidine/Sodium 50 ML Q12HR 09/16 1428 AC 09/21 Chloride IV 220 Dose Instructions: (1)Insulin Human Lispro: HIGH DOSE SLIDING SCALE (2)Total Parenteral Nutrition: TPN PER PHARMACY PROTOCOL (3)Benzocaine/Butamben/Tetracaine HCl: SPRAY THROAT (4)Morphine Sulfate: 2 - 4 MG Allergies Coded Allergies: Codeine (05/17/07) Meperidine (Severe, Nausea 09/17/16) Reconcile Medications Scheduled Medications Amitriptyline HCl (Amitriptyline HCl 25 MG) 25 MG TAB 25 MG PO QHS (Reported) Ferrous Sulfate (Iron) 325 MG TAB 325 MG PO DAILY (Reported) Hydrocodone-Acetaminophen 5/325 MG ([place] 5/325 MG) 1 TAB TAB 1 TAB PO Q6H Crohn disease, pain Pantoprazole Sodium Sesquihydr (Protonix 40 MG) 40 MG TAB 40 MG PO DAILY ( Reported) Prednisone 10 MG TAB 40 MG PO DAILY Crohn Disease Sertraline HCl (Zoloft) 50 MG TAB 50 MG PO DAILY (Reported) Miscellaneous Medications Insulin Glargine (Lantus Solostar Pen 100 Units/Ml) 100 UNITS/ML INJ (Reported) Insulin Regular (Human) (Humulin R 100 Units/Ml) 1 ML INJ Diabetes (Reported) Physical Exam Vital Signs / I&Os Vital Signs Date Time Temp Pulse Resp B/P Pulse O2 O2 Flow FiO2 Ox Delivery Rate 09/22 220 98.2 84 19 156/80 96 Room Air 09/22 0025 Room Air 09/22 2207 98.1 83 18 164/71 98 Room Air 06/29 1815 98.2 78 18 174/78 100 Room Air 09/21 1700 Room Air 09/21 1420 98.2 88 18 170/86 94 Room Air 09/21 1124 98.2 86 18 171/80 100 Room Air 09/21 0900 Room Air 0.0 09/21 0652 98.4 79 18 164/84 100 Room Air I&O 09/22 0000 09/21 1600 09/21 0800 Intake Total 7300 209 6100 Output Total 1350 1100 750 Balance -350 -257 1648 General Appearance Alert, Oriented X3, Cooperative, No acute distress Lungs Clear to auscultation, Normal air movement Cardiovascular Regular rate and rhythm, Normal S1 and S2 Abdomen Normal bowel sounds, Soft, mild suprapubic tenderness. Extremities No cyanosis, No clubbing, No edema Neurological Cranial nerves intact, No lateralizing signs Psych/Mental Status Mental status normal, Mood normal Assessment and Plan Problem List 1. Crohn's disease of ileum Plan -Patient with history of Crohn's and associated small bowel obstruction -Continue Solu-Medrol /mesalamine -Gastrografin upper GI/small bowel follow-through today -Begin clear liquid diet if no signs of obstruction on Gastrografin study -Possible discharge in a.m. with improved status 2. Abdominal pain, right lower quadrant Plan -See above -Continue present therapy 3. Diabetes mellitus Status Chronic Onset Date Unknown Plan -Patient with long-standing history of diabetes mellitus -Continue present [id number] insulin sliding scale -Diabetes exacerbated by steroids and TPN -Monitor -Blood sugars remain elevated 4. Gastroesophageal reflux Status Chronic Onset Date Unknown Plan -Stable -No further evaluation at this time. -Continue famotidine 20 mg IV twice a day 5. Generalized anxiety disorder Status Chronic Onset Date Unknown Plan -Stable -Not problematic -Monitor 6. Anemia Status Chronic Onset Date Unknown Plan -Patient with mild anemia -H&H stable at 10.4/30.8 -Check B12, folate, iron studies -Monitor 7. Hypokalemia Status Acute Onset Date Unknown Plan -Patient with findings of mild hypokalemia -Potassium 3.3 -KCl 20 mEq IV -Monitor 8. Malnutrition Status Acute Onset Date Unknown Plan -TPN initiated -Blood sugar significantly elevated since initiation of TPN -Sliding scale insulin increase to high-dose -May require increased Lantus insulin -Monitor -Hopefully begin oral feedings this p.m. 9. Small bowel obstruction Plan -Patient with findings of small bowel obstruction -Upright film x-ray showed improvement -Gastrografin/small bowel follow-through today -Begin clear liquid diet if Gastrografin study unremarkable Current status: Fair, improved Anticipated discharge date: Anticipated discharge in 24 hours Anticipated discharge placement: Home Patient care time: Time in chart review, patient interview, physical exam, CPOE, and care documentation: 35 mins Visit to patient today: 2 Complexity of care: High DVT prophylaxis: Lovenox 40 mg subcutaneous daily E&M Codes Rounding: Inpt-High/[id number]
[2016-09-22 06:43] VITALS: BP 178/79
[2016-09-22 10:14] VITALS: BP 136/78
[2016-09-22 14:50] VITALS: BP 144/67
--- NOTE | 2016-09-22 18:04 | DIAGNOSTIC IMAGING REPORT ---
PROCEDURE: XR SBFT WITH GASTROGRAFIN INDICATION: crohns, sbo TECHNIQUE: Psychiatric Lpn image of the abdomen was obtained. The patient was administered 240 ml of gastrographin by mouth. The patient vomited up to approximately 200 ml of contrast. Films of the abdomen were obtained at 15 minutes, one, two, three, and five hours. COMPARISON: Plain films 09/21/2016 FINDINGS: Psychiatric Lpn film demonstrates a staple rings of to bowel anastomoses in the low pelvis, surgical clips in the upper midline pelvis, and gallbladder fossa. There are occasional air fluid levels in nondilated bowel loops in the right abdomen. Takes proximally 1 hour to opacify the proximal and mid jejunum. Bowel loop diameter is mildly prominent. At 2 hours, there was opacification of a few the proximal ileal loops in the left abdomen. By 3 hours, there is opacification of most of the ileum without passage of contrast into the proximal colon. By 5 hours there is opacification of the proximal colon. Ileal loops are moderately prominent. There is a patulous loop of bowel in the mid low abdomen. IMPRESSION: 1. Delayed transit time through the small bowel but no evidence of obstruction or transition point. 2. Mildly prominent bowel loops suggestive of ileus.
--- NOTE | 2016-09-22 18:04 | DIAGNOSTIC IMAGING REPORT ---
PROCEDURE: XR SBFT WITH GASTROGRAFIN INDICATION: crohns, sbo TECHNIQUE: [employer] image of the abdomen was obtained. The patient was administered 240 ml of gastrographin by mouth. The patient vomited up to approximately 200 ml of contrast. Films of the abdomen were obtained at 15 minutes, one, two, three, and five hours. COMPARISON: Plain films 09/21/2016 FINDINGS: [employer] [employer] film demonstrates a staple rings of to bowel anastomoses in the low pelvis, surgical clips in the upper midline pelvis, and gallbladder fossa. There are occasional air fluid levels in nondilated bowel loops in the right abdomen. Takes proximally 1 hour to opacify the proximal and mid jejunum. Bowel loop diameter is mildly prominent. At 2 hours, there was opacification of a few the proximal ileal loops in the left abdomen. By 3 hours, there is opacification of most of the ileum without passage of contrast into the proximal colon. By 5 hours there is opacification of the proximal colon. Ileal loops are moderately prominent. There is a patulous loop of bowel in the mid low abdomen. IMPRESSION: 1. Delayed transit time through the small bowel but no evidence of obstruction or transition point. 2. Mildly prominent bowel loops suggestive of ileus.
[2016-09-22 18:22] VITALS: BP 129/74
[2016-09-22 22:49] VITALS: BP 141/65
[2016-09-23 02:43] VITALS: BP 147/69
[2016-09-23 07:12] VITALS: BP 168/81
--- NOTE | 2016-09-23 07:14 | Progress Note ---
Subjective General Note Date: September 23, 2016 Admission Date: September 16, 2016 Hospital Day: 8 PCP: None Status: Inpatient, ACU Advanced Directive: FULL CODE Room: 211 Admission History: The patient is a 66-year-old female with a significant past medical history of Crohn's disease, diabetes mellitus, depression, generalized anxiety disorder, gastroesophageal reflux, who presented to [facility] emergency room on the day of admission secondary to complaints of abdominal pain. [facility] ER evaluation was consistent with Crohn's disease flare with associated small bowel obstruction. Secondary to the above, the patient was admitted by Saul Macedo M.D. for further evaluation and treatment. For other history present illness, past medical history, family history, social history, review of systems, and admission physical examination please see the patient's history and physical examination and ER visit note in the patient's medical record. Subjective: The patient states she is doing much better today. Taking clear liquids without problems. Anxious for discharge Patient requests: None Medications and Allergies Medications Current Medications Sig/Tremayne Start time Last Medication Dose Route Stop Time Status Admin Prednisone 40 MG DAILY 09/23 1345 AC 09/23 PO 1558 Insulin Glargine 10 UNITS DAILY 09/22 1030 AC 09/23 SC 0823 Insulin Human Lispro See Dose Q6HR 09/22 0024 AC 09/23 Insts (1) SC 1201 Fat Emulsion 250 ML Q24H 09/21 1400 AC 09/22 Intravenous IV 1428 Dextrose/Water 500 ML ASDIRECTED PRN 09/21 0945 AC IV Mesalamine 800 MG TID 09/20 1100 AC 09/23 PO 1335 Benzocaine/Butamben/ See Dose PRN PRN 09/18 1800 AC 09/18 Tetracaine HCl Insts (2) TOP 2011 Promethazine HCl 12.5 MG Q4H PRN 09/18 1215 AC 09/23 IV 0930 Sodium Chloride 1,000 ML ASDIRECTED 09/18 0715 AC 09/22 IV 0826 Morphine Sulfate See Dose Q1H PRN 09/17 1900 AC 09/23 Insts (3) IV 1335 Ondansetron HCl 4 MG Q4H PRN 09/17 1615 AC 09/22 IV 0933 Lorazepam 1 MG Q6H PRN 09/16 2115 AC 09/20 IV 1937 Lidocaine 15 ML Q4H PRN 09/16 2100 AC 09/17 PO 0436 Enoxaparin Sodium 40 MG QAM 09/16 1431 AC 09/23 SC 0825 Acetaminophen 650 MG Q6H PRN 09/16 1430 AC PO Zolpidem Tartrate 5 MG QHS PRN 09/16 1430 AC PO Famotidine/Sodium 50 ML Q12HR 09/16 1428 AC 09/23 Chloride IV 0823 Dose Instructions: (1)Insulin Human Lispro: HIGH DOSE SLIDING SCALE (2)Benzocaine/Butamben/Tetracaine HCl: SPRAY THROAT (3)Morphine Sulfate: 2 - 4 MG Allergies Coded Allergies: Codeine (05/17/07) Meperidine (Severe, Nausea 09/17/16) Reconcile Medications Scheduled Medications Amitriptyline HCl (Amitriptyline HCl 25 MG) 25 MG TAB 25 MG PO QHS (Reported) Ferrous Sulfate (Iron) 325 MG TAB 325 MG PO DAILY (Reported) Hydrocodone-Acetaminophen 5/325 MG ([place] 5/325 MG) 1 TAB TAB 1 TAB PO Q6H Crohn disease, pain Pantoprazole Sodium Sesquihydr (Protonix 40 MG) 40 MG TAB 40 MG PO DAILY ( Reported) Prednisone 10 MG TAB 40 MG PO DAILY Crohn Disease Sertraline HCl (Zoloft) 50 MG TAB 50 MG PO DAILY (Reported) Miscellaneous Medications Insulin Glargine (Lantus Solostar Pen 100 Units/Ml) 100 UNITS/ML INJ (Reported) Insulin Regular (Human) (Humulin R 100 Units/Ml) 1 ML INJ Diabetes (Reported) Physical Exam Vital Signs / I&Os Vital Signs Date Time Temp Pulse Resp B/P Pulse O2 O2 Flow FiO2 Ox Delivery Rate 09/23 0243 98.4 86 20 147/69 97 Room Air 09/23 0040 Room Air 09/22 2249 98.1 79 20 141/65 100 Room Air 09/22 1822 98.1 80 20 129/74 100 Room Air 09/22 1600 Room Air 0.0 09/22 1450 99.0 84 20 144/67 100 Room Air 09/22 1014 98.8 89 20 136/78 98 Room Air 0.0 I&O 09/23 0000 09/22 1600 09/22 0800 Intake Total 710 837 567 Output Total 50 200 1075 Balance 660 637 -508 General Appearance Alert, Oriented X3, Cooperative, No acute distress Lungs Clear to auscultation, Normal air movement Cardiovascular Regular rate and rhythm, Normal S1 and S2 Abdomen Normal bowel sounds, Soft, No tenderness Neurological Cranial nerves intact, No lateralizing signs Psych/Mental Status Mental status normal, Mood normal LAB Results Laboratory Tests 09/23 0535 Chemistry Plasma Sodium (136 - 145 mmol/L) 142 Plasma Potassium (3.5 - 5.1 mmol/L) 2.9 Plasma Chloride (98 - 107 mmol/L) 105 CO2 (Enzymatic) (21 - 32 mmol/L) 29 BUN (7 - 18 mg/dL) 23 Creatinine (0.6 - 1.3 mg/dL) 0.7 Est GFR ( Amer) (mL/min) >60 Est GFR (Non-Af Amer) (mL/min) >60 Glucose (70 - 110 mg/dL) 162 Plasma Calcium (8.5 - 10.1 mg/dL) 8.3 Plasma Magnesium (1.8 - 2.4 mg/dL) 1.9 Total Bilirubin (0.0 - 1.0 mg/dL) 0.3 AST (15 - 37 U/L) 42 ALT (12 - 78 U/L) 60 Alkaline Phosphatase (46 - 116 U/L) 51 Total Protein (6.4 - 8.2 g/dL) 6.3 Albumin (3.3 - 5.0 g/dL) 3.1 Hematology WBC (4.5 - 11.5 K/uL) 10.6 RBC (4.00 - 5.20 M/uL) 3.58 Hgb (12.0 - 16.0 gm/dL) 10.1 Hct (36.0 - 46.0 %) 29.9 MCV (80 - 100 fL) 84 MCH (26 - 34 pg) 28 RDW (11.6 - 14.8 %) 13.8 Neut % (Auto) (50 - 75 %) 47.5 Lymph % (Auto) (25 - 40 %) 37.9 [place] % (Auto) (3 - 14 %) 13.4 Eos % (Auto) (0 - 4 %) 0.9 Baso % (Auto) (0 - 2 %) 0.3 Plt Count, EDTA (150 - 400 K/uL) 308 PUBS MCHC (31 - 37 g/dL) 34 Assessment and Plan Problem List 1. Crohns disease Status Chronic Onset Date Unknown Plan -Stable -Prednisone 40 mg by mouth daily -Continue mesalamine at current dosage schedule -Clear liquid diet -Possible discharge in a.m. with outpatient follow-up 2. Abdominal pain, right lower quadrant Plan -See above -Status improved -Possible discharge in a.m. 3. Diabetes mellitus Status Chronic Onset Date Unknown Plan -Blood sugar remains elevated with use of corticosteroids and TPN -DC TPN with clear liquid diet -Taper to oral prednisone 40 mg by mouth daily -Continue present medical regimen -Monitor 4. Gastroesophageal reflux Status Chronic Onset Date Unknown Plan -Stable -Continue famotidine -Monitor 5. Generalized anxiety disorder Status Chronic Onset Date Unknown Plan -Stable -No further evaluation -Outpatient follow-up with PCP 6. Anemia Status Chronic Onset Date Unknown Plan -H&H stable -H&H 10.04/23.9 -Iron studies within normal limits, folate within normal limits -B12 borderline low at 224 pg/millimeter -B12 2000 g by mouth daily -Monitor 7. Hypokalemia Status Acute Onset Date Unknown Plan -Persistent hypokalemia -Potassium 2.9 today -KCl 40 mEq IV -Monitor 8. Malnutrition Status Acute Onset Date Unknown Plan -Patient on TPN -DC TPN begin clear liquid diet -Advance diet as tolerated 9. Small bowel obstruction Plan -Resolved -Patient placed on clear liquids last p.m. -Monitor -Advance diet as tolerated Current status: Fair, improved Anticipated discharge date: Anticipated discharge 1-2 days Anticipated discharge placement: Home Patient care time: Time in chart review, patient interview, physical exam, CPOE, and care documentation: 35 mins Visit to patient today: 1 Complexity of care: High DVT prophylaxis: Lovenox 40 mg subcutaneous daily E&M Codes Rounding: Inpt-High/[id number]
[2016-09-23 10:50] VITALS: BP 131/62
[2016-09-23 14:18] VITALS: BP 153/82
[2016-09-23 23:19] VITALS: BP 177/81
[2016-09-24 03:29] VITALS: BP 150/68
--- NOTE | 2016-09-24 07:50 | Progress Note ---
Subjective General Note Date: September 24 Admission Date: September 16, 2016 Hospital Day: 9 PCP: None Status: Inpatient, ACU Advanced Directive: FULL CODE Room: 211 Admission History: The patient is a 66-year-old female with a significant past medical history of Crohn's disease, diabetes mellitus, depression, generalized anxiety disorder, gastroesophageal reflux, who presented to [facility] emergency room on the day of admission secondary to complaints of abdominal pain. [facility] ER evaluation was consistent with Crohn's disease flare with associated small bowel obstruction. Secondary to the above, the patient was admitted by Saul Macedo M.D. for further evaluation and treatment. For other history present illness, past medical history, family history, social history, review of systems, and admission physical examination please see the patient's history and physical examination and ER visit note in the patient's medical record. Subjective: The patient states she is doing well. No significant abdominal pain. No nausea or vomiting. Ready for discharge Patient requests: Discharge today Medications and Allergies Medications Current Medications Sig/Tremayne Start time Last Medication Dose Route Stop Time Status Admin Cyanocobalamin 2,000 MCG DAILY 09/23 1815 AC PO Prednisone 40 MG DAILY 09/23 1345 AC 09/23 PO 1558 Insulin Glargine 10 UNITS DAILY 09/22 1030 AC 09/23 SC 0823 Insulin Human Lispro See Dose Q6HR 09/22 0024 AC 09/24 Insts (1) SC 0638 Fat Emulsion 250 ML Q24H 09/21 1400 AC 09/22 Intravenous IV 1428 Dextrose/Water 500 ML ASDIRECTED PRN 09/21 0945 AC IV Mesalamine 800 MG TID 09/20 1100 AC 09/24 PO 0611 Benzocaine/Butamben/ See Dose PRN PRN 09/18 1800 AC 09/18 Tetracaine HCl Insts (2) TOP 2011 Promethazine HCl 12.5 MG Q4H PRN 09/18 1215 AC 09/23 IV 0930 Sodium Chloride 1,000 ML ASDIRECTED 09/18 0715 AC 09/22 IV 0826 Morphine Sulfate See Dose Q1H PRN 09/17 1900 AC 09/24 Insts (3) IV 0109 Ondansetron HCl 4 MG Q4H PRN 09/17 1615 AC 09/22 IV 0933 Lorazepam 1 MG Q6H PRN 09/16 2115 AC 09/23 IV 2201 Lidocaine 15 ML Q4H PRN 09/16 2100 AC 09/17 PO 0436 Enoxaparin Sodium 40 MG QAM 09/16 1431 AC 09/23 SC 0825 Acetaminophen 650 MG Q6H PRN 09/16 1430 AC PO Zolpidem Tartrate 5 MG QHS PRN 09/16 1430 AC PO Famotidine/Sodium 50 ML Q12HR 09/16 1428 AC 09/23 Chloride IV 2144 Dose Instructions: (1)Insulin Human Lispro: HIGH DOSE SLIDING SCALE (2)Benzocaine/Butamben/Tetracaine HCl: SPRAY THROAT (3)Morphine Sulfate: 2 - 4 MG Allergies Coded Allergies: Codeine (05/17/07) Meperidine (Severe, Nausea 09/17/16) Reconcile Medications Scheduled Medications Amitriptyline HCl (Amitriptyline HCl 25 MG) 25 MG TAB 25 MG PO QHS (Reported) Cyanocobalamin (Vitamin B12 500 Mcg Tablet) 500 MCG TAB 2,000 MCG PO DAILY Ferrous Sulfate (Iron) 325 MG TAB 325 MG PO DAILY (Reported) Hydrocodone-Acetaminophen 5/325 MG ([place] 5/325 MG) 1 TAB TAB 1 TAB PO Q6H Crohn disease, pain Insulin Glargine (Lantus Solostar Pen 100 Units/Ml) 100 UNITS/ML INJ 10 UNITS SC DAILY Insulin Lispro (Human) (Humalog Kwikpen) 100 UNITS/ML INJ 0 UNITS SC ACHS Mesalamine (Asacol Hd 800 MG) 800 MG TAB 800 MG PO TID Pantoprazole Sodium Sesquihydr (Protonix 40 MG) 40 MG TAB 40 MG PO DAILY ( Reported) Potassium Chloride (Klor-Con M20 - 20 Meq Tablet) 20 MEQ TAB 20 MEQ PO DAILY Prednisone 20 MG TAB 20 MG PO BID Sertraline HCl (Zoloft) 50 MG TAB 50 MG PO DAILY (Reported) Discontinued Medications Insulin Glargine (Lantus Solostar Pen 100 Units/Ml) 100 UNITS/ML INJ (Reported) Discontinued reason: Duplicate Entry Insulin Regular (Human) (Humulin R 100 Units/Ml) 1 ML INJ Diabetes (Reported) Discontinued reason: Duplicate Entry Prednisone 10 MG TAB 40 MG PO DAILY Crohn Disease Discontinued reason: Duplicate Entry Physical Exam Vital Signs / I&Os Vital Signs Date Time Temp Pulse Resp B/P Pulse O2 O2 Flow FiO2 Ox Delivery Rate 07/02 0329 97.9 84 20 150/68 97 Room Air 09/23 2319 99.0 91 20 177/81 99 Room Air 09/23 2203 0.0 09/23 1418 98.2 91 22 153/82 93 Room Air 0.0 09/23 1050 99.0 91 20 131/62 100 Room Air 0.0 09/23 0949 Room Air 0.0 I&O 09/24 0000 09/23 1600 09/23 0800 Intake Total 068 062 5150 Output Total 575 600 50 Balance -450 -360 1121 General Appearance Alert, Oriented X3, Cooperative, No acute distress Lungs Clear to auscultation, Normal air movement Cardiovascular Regular rate and rhythm, Normal S1 and S2 Abdomen Normal bowel sounds, Soft, No tenderness, No guarding Extremities No cyanosis, No clubbing, No edema Neurological Cranial nerves intact, Strength 5/5 x4 ext's, No lateralizing signs Psych/Mental Status Mental status normal, Mood normal LAB Results Laboratory Tests 09/24 0610 Chemistry Plasma Sodium (136 - 145 mmol/L) 139 Plasma Potassium (3.5 - 5.1 mmol/L) 3.3 Plasma Chloride (98 - 107 mmol/L) 103 CO2 (Enzymatic) (21 - 32 mmol/L) 26 BUN (7 - 18 mg/dL) 14 Creatinine (0.6 - 1.3 mg/dL) 0.7 Est GFR ( Amer) (mL/min) >60 Est GFR (Non-Af Amer) (mL/min) >60 Glucose (70 - 110 mg/dL) 236 Plasma Calcium (8.5 - 10.1 mg/dL) 8.2 Assessment and Plan Problem List 1. Crohn's disease of ileum Plan -Doing well -Continue prednisone/Asacol post discharge -Follow per PCP this week -Discharge today 2. Abdominal pain, right lower quadrant Plan -Much improved -Discharge today 3. Diabetes mellitus Status Chronic Onset Date Unknown Plan -Blood sugar remains elevated but improved -Follow-up with PCP this week -Continue treatment with Lantus/Humalog insulin with insulin sliding scale 4. Gastroesophageal reflux Status Chronic Onset Date Unknown Plan -Stable 5. Generalized anxiety disorder Status Chronic Onset Date Unknown Plan -Stable -Not problematic 6. Anemia Status Chronic Onset Date Unknown Plan -Mild -H&H stable at 10.1/29.9 -B12, folate, iron within normal limits. B12 borderline low. -B12 supplementation on discharge -Outpatient follow up with PCP 7. Hypokalemia Status Acute Onset Date Unknown Plan -Mild -K+ supplementation on discharge 8. Malnutrition Status Acute Onset Date Unknown Plan -Improved -Patient taking well orally -Outpatient follow-up with PCP 9. Small bowel obstruction Plan -Resolved -Plan discharge today Current status: Fair, improved Anticipated discharge date: Today Anticipated discharge placement: Home Patient care time: Time in chart review, patient interview, physical exam, CPOE, and care documentation: Greater than 30 mins Visit to patient today: 1 Complexity of care: Moderate DVT prophylaxis: Lovenox For other recommendations regarding discharge diet, activity, followup, and discharge medications please see the patient's discharge instructions. Greater than 30 min. was spent in the patient's discharge preparation including discharge interview and physical examination, progress note, discharge instructions, and discharge summary E&M Codes Discharge: Inpt >30 min spent/[id number]
--- NOTE | 2016-09-24 07:58 | Discharge Summary ---
Discharge Summary Report Admit Date 09/16/16 Discharge Date 09/24/16 Admission Diagnosis 1. Small bowel obstruction 2. Crohn's disease 3. Diabetes mellitus 4. Gastroesophageal reflux 5. Generalized anxiety disorder Discharge Diagnosis 1. Small bowel obstruction 2. Crohn's disease 3. Diabetes mellitus 4. Gastroesophageal reflux 5. Generalized anxiety disorder 6. Hypokalemia Brief History The patient is a 66-year-old female with a significant past medical history of Crohn's disease, diabetes mellitus, depression, generalized anxiety disorder, gastroesophageal reflux, who presented to [facility] emergency room on the day of admission secondary to complaints of abdominal pain. [facility] ER evaluation was consistent with Crohn's disease flare with associated small bowel obstruction. Secondary to the above, the patient was admitted by Saul Macedo M.D. for further evaluation and treatment. For other history present illness, past medical history, family history, social history, review of systems, and admission physical examination please see the patient's history and physical examination and ER visit note in the patient's medical record. Hospital Course The following problems and their management were noted during the patient's hospitalization: 1. Small bowel obstruction The patient presented with findings of Crohn's flare with small bowel obstruction. She underwent treatment with IV fluid therapy, pain medications, antiemetics, and she drainage, and IV corticosteroids. Her symptoms gradually improved. The time of discharge she was maintained on a clear liquid diet for 2 days and doing well. Her diet will be advanced to full liquid on discharge for 2 additional days then advance as tolerated. She'll continue on prednisone 40 mg by mouth daily and mesalamine 800 mg by mouth every 8 hours. She will follow -up with [facility] next week and establish follow-up with a groundwater monitoring technician locally. 2. Crohn's disease See above 3. Diabetes mellitus The patient has a long-standing history of diabetes mellitus. Blood sugars were elevated secondary to use of TPN and IV/oral corticosteroids. Blood sugars adequately controlled with Lantus/Humalog sliding scale in the patient's stay. She was discharged on Lantus and Humalog to be followed by her PCP next week. 4. Gastroesophageal reflux The patient has a long-standing history of gastroesophageal reflux. This was not problematic during hospital stay. She was discharged on Protonix 40 mg by mouth daily. 5. Generalized anxiety disorder The patient presented with history of generalized anxiety disorder. This was not problematic during her hospital stay. Outpatient follow per PCP. 6. Hypokalemia The patient was noted to have findings of mild hypokalemia during her hospital stay. She was discharged on KCl 20 mEq by mouth daily. Outpatient follow-up with PCP. Lab/Imaging Laboratory Tests 09/24 0610 Chemistry Plasma Sodium (136 - 145 mmol/L) 139 Plasma Potassium (3.5 - 5.1 mmol/L) 3.3 Plasma Chloride (98 - 107 mmol/L) 103 CO2 (Enzymatic) (21 - 32 mmol/L) 26 BUN (7 - 18 mg/dL) 14 Creatinine (0.6 - 1.3 mg/dL) 0.7 Est GFR ( Amer) (mL/min) >60 Est GFR (Non-Af Amer) (mL/min) >60 Glucose (70 - 110 mg/dL) 236 Plasma Calcium (8.5 - 10.1 mg/dL) 8.2 Discharge Instructions/Meds For other recommendations regarding discharge diet, activity, followup, and discharge medications please see the patient's discharge instructions. Discharge condition: Fair, improved Greater than 30 min. was spent in the patient's discharge preparation including discharge interview and physical examination, progress note, discharge instructions, and discharge summary The patient was interviewed and examined on the day of discharge. E&M Codes Discharge: Inpt >30 min spent/[id number]
--- NOTE | 2016-09-24 07:58 | Discharge Summary ---
Discharge Summary Report Admit Date 09/16/16 Discharge Date 09/24/16 Admission Diagnosis 1. Small bowel obstruction 2. Crohn's disease 3. Diabetes mellitus 4. Gastroesophageal reflux 5. Generalized anxiety disorder Discharge Diagnosis 1. Small bowel obstruction 2. Crohn's disease 3. Diabetes mellitus 4. Gastroesophageal reflux 5. Generalized anxiety disorder 6. Hypokalemia Brief History The patient is a 66-year-old female with a significant past medical history of Crohn's disease, diabetes mellitus, depression, generalized anxiety disorder, gastroesophageal reflux, who presented to [facility] emergency room on the day of admission secondary to complaints of abdominal pain. [facility] ER evaluation was consistent with Crohn's disease flare with associated small bowel obstruction. Secondary to the above, the patient was admitted by Saul Macedo M.D. for further evaluation and treatment. For other history present illness, past medical history, family history, social history, review of systems, and admission physical examination please see the patient's history and physical examination and ER visit note in the patient's medical record. Hospital Course The following problems and their management were noted during the patient's hospitalization: 1. Small bowel obstruction The patient presented with findings of Crohn's flare with small bowel obstruction. She underwent treatment with IV fluid therapy, pain medications, antiemetics, and she drainage, and IV corticosteroids. Her symptoms gradually improved. The time of discharge she was maintained on a clear liquid diet for 2 days and doing well. Her diet will be advanced to full liquid on discharge for 2 additional days then advance as tolerated. She'll continue on prednisone 40 mg by mouth daily and mesalamine 800 mg by mouth every 8 hours. She will follow -up with [facility] next week and establish follow-up with a featheredger and reducer machine locally. 2. Crohn's disease See above 3. Diabetes mellitus The patient has a long-standing history of diabetes mellitus. Blood sugars were elevated secondary to use of TPN and IV/oral corticosteroids. Blood sugars adequately controlled with Lantus/Humalog sliding scale in the patient's stay. She was discharged on Lantus and Humalog to be followed by her PCP next week. 4. Gastroesophageal reflux The patient has a long-standing history of gastroesophageal reflux. This was not problematic during hospital stay. She was discharged on Protonix 40 mg by mouth daily. 5. Generalized anxiety disorder The patient presented with history of generalized anxiety disorder. This was not problematic during her hospital stay. Outpatient follow per PCP. 6. Hypokalemia The patient was noted to have findings of mild hypokalemia during her hospital stay. She was discharged on KCl 20 mEq by mouth daily. Outpatient follow-up with PCP. Lab/Imaging Laboratory Tests 09/24 0610 Chemistry Plasma Sodium (136 - 145 mmol/L) 139 Plasma Potassium (3.5 - 5.1 mmol/L) 3.3 Plasma Chloride (98 - 107 mmol/L) 103 CO2 (Enzymatic) (21 - 32 mmol/L) 26 BUN (7 - 18 mg/dL) 14 Creatinine (0.6 - 1.3 mg/dL) 0.7 Est GFR ( Amer) (mL/min) >60 Est GFR (Non-Af Amer) (mL/min) >60 Glucose (70 - 110 mg/dL) 236 Plasma Calcium (8.5 - 10.1 mg/dL) 8.2 Discharge Instructions/Meds For other recommendations regarding discharge diet, activity, followup, and discharge medications please see the patient's discharge instructions. Discharge condition: Fair, improved Greater than 30 min. was spent in the patient's discharge preparation including discharge interview and physical examination, progress note, discharge instructions, and discharge summary The patient was interviewed and examined on the day of discharge. E&M Codes Discharge: Inpt >30 min spent/[id number]
[2016-09-24 08:07] VITALS: BP 157/74
[2016-09-24 10:17] VITALS: BP 150/73
[2016-09-24] MEDS ORDERED: ASACOL HD800 MG PO (11:50)
[2016-09-24] MEDS ORDERED: PREDNISONE20 MG PO (11:50)
[2016-09-24] MEDS ORDERED: LANTUS SOL100 UNITS/ SC (11:55)
[2016-09-24] MEDS ORDERED: HUMALOG KWI100 MG/ML SC (11:55)
[2016-09-24] MEDS ORDERED: VITAMIN B12500 MCG PO (11:55)
--- NOTE | 2016-09-24 11:57 | Provider's Discharge Care Plan ---
Problem, Goal, Plan Problem List 1. Crohns disease Goals: Improve disease control, Prevent disease progress Instructions: Follow up as directed, Take meds as directed 2. Hypokalemia Goals: Improve disease control, Prevent disease progress Instructions: Follow up as directed, Take meds as directed 3. Diabetes mellitus Goals: Improve disease control, Prevent disease progress Instructions: Follow up as directed, Take meds as directed, Avoid processed foods, check blood sugar before meals and at bedtime following insulin sliding scale provided by hospital. Follow-up with your PCP this week
[2016-09-24] MEDS ORDERED: KLOR-CON M2020 MEQ PO (11:58)
== END 2016-09-24 14:15 | disposition home or self-care (01) | DRG 245 ==
LOC: ED SRH 09:32 → TRANS SRH 14:23 → ACUTE2 SRH 15:50
PROVIDERS: ADMIT Family Medicine
PROC: 0D9670Z Drainage of Stomach with Drainage Device, Via Natural or Artificial Opening (ICD-10-PCS; principal; 2016-09-16)
PROC: 3E0336Z Introduction of Nutritional Substance into Peripheral Vein, Percutaneous Approach (ICD-10-PCS; 2016-09-21)
PROC: 02HV33Z Insertion of Infusion Device into Superior Vena Cava, Percutaneous Approach (ICD-10-PCS; 2016-09-21)
DX: K50.012 Crohn's disease of small intestine with intestinal obstruction (principal); E87.6 Hypokalemia; E11.65 Type 2 diabetes mellitus with hyperglycemia; E46 Unspecified protein-calorie malnutrition; D64.9 Anemia, unspecified; K21.9 Gastro-esophageal reflux disease without esophagitis; F41.1 Generalized anxiety disorder; Z90.49 Acquired absence of other specified parts of digestive tract; Z79.4 Long term (current) use of insulin
CPT/HCPCS: 81523; 83463; 90004; 90047; 90074; 90098; 90100; 90101; 90469; 91286; 91295; 91504; 91505; 92235; 92530; 92668; 92670; 92720; 92740; 95059; 95061